=== PATIENT | female | born 1995 | race Caucasian/White ===

== ENCOUNTER 2021-07-22 13:27 | Outpatient (CLI) | payer BC, SELFPAY ==
[2021-07-22 13:55] LABS: Add Urine Microscopic? YES; Appearance Urine Clear (Clear); Bilirubin Urine Negative (Negative); Blood Urine Negative (Negative); Color Urine Light Yellow (Yellow); Glucose Urine UA Trace (Negative); Ketones Urine Negative (Negative); Leukocyte Esterase Ur Negative (Negative); Nitrate Urine Negative (Negative); Protein Urine Negative (Negative); Specific Grav Ur <= 1.005 (1.010-1.020); Urobilinogen Urine 0.2 mg/dL (0.2-1.0)
[2021-07-22 14:06] LABS: Bacteria Urine None seen /hpf; RBC Urine None seen /hpf (0-2); Squamous Epithelial Cell Urine Rare /hpf (Few); WBC Urine None seen /hpf (0-3)
[2021-07-22 14:07] LABS: Creatinine Urine 41.68 mg/dL (40-278); Hemoglobin A1C 9.9 % (<5.7); MALB Creatinine Ratio 31.1 mg/g (0-30); Microalbumin Urine Random < 13.0 mg/L
[2021-07-22 15:04] LABS: Alanine Aminotransferase 24 U/L (14-59); Alkaline Phosphatase 84 U/L (46-116); Anion Gap 7 mmol/L (8-16); Aspartate Amino Transferase 10 U/L (15-37); Bilirubin,Total 0.3 mg/dL (0.00-1.00); Blood Urea Nitrogen 10 mg/dL (7-18); Calcium 9.2 mg/dL (8.5-10.1); Carbon Dioxide 30 mmol/L (21-32); Chloride 102 mmol/L (98-108); Cholesterol 226 mg/dL (0-200); Estimated Glomerular Filt Rate > 60; Free T4 Free Thyroxine 1.07 ng/dL (0.76-1.46); Glucose 201 mg/dL (70-99); HDL Direct 68 mg/dL (40-60); LDL Cholesterol Calculated 151 mg/dL (<130); Osmolality Calculated 293 mOsm/kg (285-295); Potassium 4.6 mmol/L (3.5-5.1); Sodium 139 mmol/L (136-145); Thyroid Stimulating Hormone 0.67 uIU/mL (0.36-3.74); Total Protein 7.6 g/dL (6.4-8.2); Triglycerides 37 mg/dL (0-150)
== END 2021-07-22 13:28 | disposition home or self-care (01) ==
PROVIDERS: PCP Internal Medicine; Visit Provider Internal Medicine Endocrinology, Diabetes & Metabolism
DX: E10.65 Type 1 diabetes mellitus with hyperglycemia (principal)
CPT/HCPCS: 36415; 80053; 80061; 81001; 82043; 83036; 84439; 84443

== ENCOUNTER 2021-12-31 09:51 | Outpatient (CLI) | payer OTHER, SELFPAY ==
[2021-12-31 11:10] LABS: Creatinine Urine 181.64 mg/dL (40-278); MALB Creatinine Ratio 7.1 mg/g (0-30); Microalbumin Urine Random < 13.0 mg/L
[2021-12-31 11:11] LABS: Alanine Aminotransferase 20 U/L (14-59); Albumin Level 3.8 g/dL (3.4-5.0); Alkaline Phosphatase 59 U/L (46-116); Anion Gap 11 mmol/L (8-16); Aspartate Amino Transferase < 10 U/L (15-37); Bilirubin,Total 0.3 mg/dL (0.00-1.00); Blood Urea Nitrogen 8 mg/dL (7-18); Calcium 8.9 mg/dL (8.5-10.1); Carbon Dioxide 26 mmol/L (21-32); Chloride 103 mmol/L (98-108); Cholesterol 202 mg/dL (0-200); Estimated Glomerular Filt Rate > 60; Free T4 Free Thyroxine 1.08 ng/dL (0.76-1.46); Glucose 150 mg/dL (70-99); HDL Direct 65 mg/dL (40-60); LDL Cholesterol Calculated 129 mg/dL (<130); Osmolality Calculated 291 mOsm/kg (285-295); Potassium 4.2 mmol/L (3.5-5.1); Sodium 140 mmol/L (136-145); Thyroid Stimulating Hormone 0.53 uIU/mL (0.36-3.74); Total Protein 7.4 g/dL (6.4-8.2); Triglycerides 39 mg/dL (0-150)
[2021-12-31 12:18] LABS: Hemoglobin A1C 8.3 % (<5.7)
== END 2021-12-31 09:52 | disposition home or self-care (01) ==
LOC: CHSLAB 09:55
PROVIDERS: PCP Internal Medicine; Visit Provider Internal Medicine Endocrinology, Diabetes & Metabolism
DX: E10.65 Type 1 diabetes mellitus with hyperglycemia (principal)
CPT/HCPCS: 36415; 80053; 80061; 82043; 83036; 84439; 84443

== ENCOUNTER 2024-11-27 15:20 | Outpatient (CLI) | payer BC, SELFPAY ==
--- NOTE | ~2024-11-27 | US_ITS ---
EXAMINATION: US OB <= 14 weeks fetus DATE: 11/27/2024 18:15 RAILWAY STATION MANAGER INDICATION: Dating. COMPARISON: 08/01/2024 TECHNIQUE: Real-time transabdominal obstetric ultrasound. FINDINGS: 1 para 0 Estimated date of delivery by last menstrual period is 07/02/2025 The uterus measures 9.8 x 6.5 x 7.0 cm. A gestational sac is identified within the uterus. A pole is identified, with a crown-rump length that measures 2.3 cm, corresponding to an approx imate gestational age of 9 weeks and 0 days. cardiac activity is identified at a rate of 173 bpm. Despite prolonged interrogation, neither ovary was visualized. Estimated date of delivery by ultrasound is 07/02/2025 IMPRESSION: Single intrauterine gestation with an approximate gestational age of 9 weeks and 0 days, with c ardiac activity identified. Reviewed, dictated and finalized at location A. WAY STATION MANAGER IMPRESSION: Single intrauterine gestation with an approximate gestational age of 9 weeks an d 0 days, with cardiac activity identified.
== END 2024-11-27 15:21 | disposition home or self-care (01) ==
LOC: MICIMG 15:20
PROVIDERS: PCP Nurse Practitioner Obstetrics & Gynecology; Visit Provider Nurse Practitioner Obstetrics & Gynecology
DX: N91.2 Amenorrhea, unspecified (principal)
CPT/HCPCS: 76801

== ENCOUNTER 2024-12-25 15:26 | Outpatient (CLI) | payer BC, SELFPAY ==
[2024-12-25 16:09] LABS: Add Urine Microscopic? NO; Appearance Urine Clear (Clear); Bilirubin Urine Negative (Negative); Blood Urine Negative (Negative); Color Urine Yellow (Yellow); Glucose Urine UA Negative (Negative); Ketones Urine Negative (Negative); Leukocyte Esterase Ur Negative LEU/UL (Negative); Nitrate Urine Negative (Negative); Protein Urine Negative (Negative); Urobilinogen Urine 0.2 mg/dL (<2.0)
[2024-12-25 16:20] LABS: Hemoglobin 13.5 g/dL (12.0-15.0); Mean Corpuscular HGB Conc 35.5 g/dl (32-36); Mean Corpuscular Hemoglobin 32.5 pg (26-34); Mean Corpuscular Volume 91.6 fl (80-100); Mean Platelet Volume 10.2 fl (7.4-10.4); Platelet Count Result 303 k/mm3 (150-375); Red Blood Count 4.15 M/mm3 (4.2-5.4); Red Cell Distribution Width 13.9 % (11.5-14.5); White Blood Count 13.3 K/mm3 (4.5-10.0)
[2024-12-25 16:45] LABS: Thyroid Stimulating Hormone 0.689 uIU/mL (0.465-4.680)
[2024-12-25 16:53] LABS: Syphilis IgG/IgM Antibody Negative (Negative)
[2024-12-25 16:55] LABS: HIV 1/2 Ab P24 Ag Result Negative (Negative)
[2024-12-25 16:58] LABS: Hepatitis B Surface Antigen Negative (Negative); Rubella IgG Antibody 6.6 IU/ML
[2024-12-25 17:15] LABS: Hepatitis C Virus Antibody Negative (Negative)
--- OUTSIDE RECORDS SUMMARY | 2024-12-25 18:02 | XMS_ITS | Encounter Summary ---
Author Organization [facility] Address [address] [place] [address] Phone Care Team Providers Care Camp Housekeeper Name Role Phone Lonnie Pond MD Primary Care Provider [phone] Naveen Bal MD Unavailable [phone] Encounter Details Date Type Department Care Team (Late st Contact Info) Description 12/24/2024 Telephone [facility] Endocrinology Metabolism and Lipid 1 [facility] [address] [place] [address] Brayan Padilla RN Social History Tobacco Use Types Packs/Day Years Used Date Smoking Tobacco: Never Alcohol Use Standard Drinks/Week Comments Yes 0 (1 standard drink = 0.6 oz pur e alcohol) Estimated Date of Delivery Comme nts Yes 07/02/2025 Sex and Gender Information Value Date Recorded Sex Assigned at Not on file Legal Sex Female 9:01 PM WOOL DYER Gender Identity Not on file Sexual Orientation Not on file documented as of this encounter Miscellaneous Notes * Telephone Encounter - Brayan Padilla RN - 12/24/2024 11:41 AM WOOL DYER Images from the original note were not included. Outgoing telephone call to discuss below with patient: Saloni Tan MD Armbruster, Dylan Lee, RN Please call patient that her thyroid test is at goal for . She needs to sign up to my chart. I would like her to follow with me, if she is ok, will need appointments every 2 weeks for the next 6 months. For the next one, she can be added at noon. The others will need to be on available spots or keep her name for cancellations. Thanks. No contact. This RN to [facility] with request for return phone call when available. DYER documented in this encounter Plan of Treatment Not on file documented as of this encounter Visit Diagnoses Not on filedocumented in this encounter Care Teams Camp Housekeeper Relationship Specialty Start Date End Date Lonnie Pond MD PCP - General 10/14/14 Naveen Bal MD Consulting Physician Endocrinology Diabetes & Metabolism 05/31/20 documented as of this encounter
--- OUTSIDE RECORDS SUMMARY | 2024-12-25 18:02 | XMS_ITS | Encounter Summary ---
Author Organization [facility] Address [address] [place] [address] Care Team Providers Care Suspension Cord Tier Name Role Phone Unavailable Primary Care Provider Unavailabl e Reason for Visit * Reason Comments Diabetes Encounter Details Date Type Department Care Team (Late st Contact Info) Description 12/17/2024 Chart Note [facility] [place] [facility] [address] [facility] [address] [address] [facility] [address] [place] [phone] Elpidio Price MD [address] [facility] [address] [place] [phone] Diabetes Social History Tobacco Use Types Packs/Day Years Used Date Smoking Tobacco: Never Assessed Estimated Date of Delivery Comme nts Yes 07/02/2025 Sex and Gender Information Value Date Recorded Sex Assigned at Not on file Legal Sex Female 2:11 PM DASHBOARD DEVELOPER Gender Identity Not on file Sexual Orientation Not on file documented as of this encounter Progress Notes * Samara Dawson RN - 12/17/2024 3:44 PM CST Images from the original note were not included. [facility] Maternal Medicine Diabetes Log Review Gestational age: 11w6d Type of DM: DM1 Current regimen: Humalog via Tandem insulin pump + Dexcom CGM Comments: Pump and CGM data reviewed. Average sensor glucose for the past 7 days is 132 mg/dL. She is spending 66% time in range of 70-140 mg/dL (goal is at least 70% or higher). Average TDD is 63.55(44% basal, 56% bolus). Pump settings verified in Tandem Source. Patient is using control IQ 98% ofthe time with sleep mode overnight [id number]. Trends of elevations noted after meals. Next appointment with MFM: 01/[address] Kline for initial consult Recommendations: -Increase ICR at meals -Adjust ISF based on TDD of 65U using rule of 1800 -In control IQ settings, adjust TDD from 35U to 63U -See pump changes below in bold -Send Elias Borges Urzeda message to MFM weekly and prn for pump/CGM review Control IQ- ON Sleep Mode [id number] INSULIN PUMP BASAL RATES TIME 12/11 1.40 1.40 CARB RATIO TIME 12/11 8 6 SENSITIVITY TIME 12/11 40 27 TARGET TIME TARGET RANGE 110-110 Samara Dawson, EDNA Certified Diabetes Care & Edu Specialist [facility] [place] [facility] Initial Visit: 01/02/25 Last Log Billed (either BP or BG) (CGM to bill monthly; others every 7 days): none (Cannot bill until 7 days after an initial consult with MD or JENNIFER) OK to bill: No Physician Attestation: Log reviewed. Agree with above recommendations. No additional changes at this time. Elpidio Price MD Maternal Medicine I spent 5 minutes reviewing this log and therapy plan. BOARD DEVELOPER documented in this encounter Plan of Treatment Upcoming Encounters Date Type Department Care Team (Late st Contact Info) Description 01/02/2025 2:00 PM DASHBOARD DEVELOPER Video Visit [facility] [place] [facility] [address] [facility] [address] [address] [facility] [facility] [address] [place] [address] documented as of this encounter Visit Diagnoses Not on filedocumented in this encounter
--- OUTSIDE RECORDS SUMMARY | 2024-12-25 18:02 | XMS_ITS | Clinical Summary ---
Author Organization [facility] Address [address] [place] [address] Care Team Providers Care Director Hardware Name Role Phone Lonnie Pond MD Primary Care Provider [phone] Naveen Bal MD Unavailable [phone] Allergies No known active allergies Medications glucagon (Gvoke HypoPen 1-Pack) 1 mg/0.2 mL auto-injector Inject 1 mg as needed by subcutaneous route as needed for 1 day. Active subcutaneous insulin pump misc Tandem Active blood-glucose sensor (Dexcom G7 Sensor) device Apply to skin every 10 days 9 each 3 024 Active insulin lispro (HumaLOG) 100 unit/mL vial for injectionIndicat ions:Type 1 diabetes mellitus with hyperglycemia (HCC) Use to administer insulin SQ via insulin pump. MDD of 70 units. 70 mL 1 025 Active insulin glargine 100 unit/mL vial for injection USE ONLY IF INSULIN PUMP FAILS. Inject 10 units SQ qHS as directed if pump fails 025 Active insulin syringe-needle U-100 0.5 mL 31 gauge x 5/16 syringe Use to inject insulin as directed 025 Active insulin lispro (HumaLOG U-100 Insulin) 100 unit/mL injection USE UP TO 60 UNITS DAILY IN OMNI POD 019 2024 Discontinued(R eorder) insulin pump cartridge (Omnipod Insulin Refill) cartridge 019 2024 Discontinued(A lternate therapy) Dexcom G6 Transmitter device CHANGE EVERY 90 DAYS DIRECTED 024 2024 Discontinued(A lternate therapy) insulin aspart (NovoLOG) 100 unit/mL vial for injection Inject 200 units every 72 hours by subcutaneous route as directed for 90 days. 023 2024 Discontinued insulin lispro (HumaLOG) 100 unit/mL vial for injectionIndicat ions:Type 1 diabetes mellitus with hyperglycemia (HCC) Use to administer insulin SQ via insulin pump. MDD of 70 units. 70 mL 1 025 2024 Discontinued(R eorder) Active Problems Patient Care Coordination No te Formatting of this note migh t be different from the original. Patient's Upholsterer Inside is Dr. 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 Stressed importance of tight blood glucose control/ diet/exercise and A1C <7% to reduce the risk of diabetic complications. Report sent to PCP/endo. Estimated Date of Delivery Comme nts Yes 07/02/2025 Encounters Date Type Department Care Team Description 12/25/2024 Telephone [facility] Endocrinology Metabolism and Lipid [address] [facility] 5[address] [place] [address] [place] [address] Brayan Padilla RN 12/24/2024 Telephone [facility] Endocrinology Metabolism and Lipid 1 [facility] [address] [place] [address] Brayan Padilla RN 12/21/2024 Results Follow-Up [facility] Endocrinology Metabolism and Lipid 1 [facility] [address] [place] [address] Saloni Tan MD 12/14/2024 1:00 PM RHEUMATOLOGIST Lab [facility] Infectious Diseases [address] [facility] [address] [place] [phone] 12/14/2024 12:59 PM RHEUMATOLOGIST - 12/14/2024 11:59 PM RHEUMATOLOGIST Hospital Encounter [address] [address] Type 1 diabetes mellitus with hyperglycemia (HCC) Discharge Disposition: Discharge to home or self care 12/14/2024 11:40 AM RHEUMATOLOGIST Office Visit [facility] Endocrinology Metabolism and Lipid [address] [place] [address] [address] [place] [phone] Saloni Tan MD Type 1 diabetes mellitus with hyperglycemia (HCC) (Primary Dx); Type 1 diabetes mellitus complicating , antepartum, first trimester from Last 3 Months Medical History Medical History Date Comments Type 1 diabetes mellitus (HCC) D iabetes type 1; Comments: CL 07/22/2014 - Family History Medical History Relation Name Comments Diabetes Father's Sister Diabetes jennifer litus; Diabetes Maternal Grandmother Diabete s mellitus; Cause of : Diabetes mellitus Diabetes Paternal Grandmother Diabete s mellitus; Relation Name Status Comments Father's Sister Maternal Grandmother Paternal Grandmother Social History Tobacco Use Types Packs/Day Years Used Date Smoking Tobacco: Never Tobacco Cessation:Counseling Given: Not Answered Alcohol Use Standard Drinks/Week Comments Yes 0 (1 standard drink = 0.6 oz pur e alcohol) Estimated Date of Delivery Comme nts Yes 07/02/2025 Sex and Gender Information Value Date Recorded Sex Assigned at Not on file Legal Sex Female 9:01 PM RHEUMATOLOGIST Gender Identity Not on file Sexual Orientation Not on file Obstetrics History Para Term AB IAB SAB Ectopic Multiple Livin g Live Births 1 Date Outcome GA Total Labor Labor/2nd/3rd Weight Sex Type Anes PTL Erin A1 A5 Name Clin Current Last Filed Vital Signs Vital Sign Reading Time Taken Comments Blood Pressure 116/72 12/14/2024 11:32 AM RHEUMATOLOGIST Pulse 83 12/14/2024 11:32 AM RHEUMATOLOGIST Temperature 36.7 C (98.1 F) 12/14/2024 11:32 AM RHEUMATOLOGIST Respiratory Rate - - Oxygen Saturation - - Inhaled Oxygen Concentration - - Weight 69.7 kg (153 lb 9.6 oz) 12/14/2024 11:32 AM RHEUMATOLOGIST Height 170.2 cm (5' 7 ) 12/14/2024 11:32 AM RHEUMATOLOGIST Body Mass Index 24.06 12/14/2024 11:32 AM RHEUMATOLOGIST Plan of Treatment Health Maintenance Due Date Last Done Comments Cervical Cancer Screening 1995 Depression Screening 1995 Foot Exam 1995 Hepatitis C Screening 1995 Regular Well Visit/Exam 18-64 2013 Pneumococcal vaccine <65 (1 of 2 - PCV) 2014 DTaP/Tdap/Td Vaccine (7 - Td or Tdap) 05/13/2020 05/13/2010, 03/03/2001, 03/03/2001, Additional history exists Dilated Eye Exam 06/04/2021 06/04/2020 Influenza Vaccine (#1) 2024 07/29/2015, 2012 Albumin Creatinine Ratio, Urine 06/04/2025 Lipid Panel 06/04/2025 06/04/2024, 04/03/2020 eGFR 06/04/2025 06/04/2024 Hemoglobin A1C 06/13/2025 12/14/2024, 1103/2024, 06/04/2024, Additional history exists TSH Level 12/14/2025 12/14/2024, 080 02/2024, 04/03/2020 Hepatitis B Screening Completed 03/02/1996 , 1995, 1995 Varicella Vaccines Completed 03/03/2001, 02/01/1997 HPV Vaccines Completed 12/22/2007, 100 12/2006, 06/30/2007 Procedures Procedure Name Priority Date/Time Associated Diagnosis Comments THYROID FUNCTION CASCADE Routine 12/14/2024 12:59 PM RHEUMATOLOGIST Type 1 diabetes mellitus with hyperglycemia (HCC) POCT HEMOGLOBIN A1C Routine 12/14/2024 1 1:43 AM RHEUMATOLOGIST Type 1 diabetes mellitus with hyperglycemia (HCC) EGFR Routine 06/04/2024 3:33 PM CDT Type 1 diabetes mellitus with hyperglycemia (HCC) LIPID PANEL Routine 06/04/2024 3:33 PM CDT Type 1 diabetes mellitus with hyperglycemia (HCC) ALBUMIN CREATININE RATIO, URINE Routine 06/04/2024 3:33 PM CDT Type 1 diabetes mellitus with hyperglycemia (HCC) from Last 3 Months or Most Recently Relevant to Health Maintenance Results * Thyroid Function [facility] (12/14/2024 12:59 PM RHEUMATOLOGIST) TSH 0.47 0.30 - 4.20 mcIUnit/mL Blood 12/14/2024 12:5 9 PM RHEUMATOLOGIST 12/14/2024 8:39 PM RHEUMATOLOGIST Saloni Fragoso MD LAB BLOOD ORDERABLES Final Result [facility] [address] Department [place] [address] * POCT hemoglobin A1c (12/14/2024 11:43 AM RHEUMATOLOGIST) Hemoglobin A1C, POC 6.5 4.0 - 5.6 % Blood 12/14/2024 11:4 3 AM RHEUMATOLOGIST Saloni Fragoso MD POINT OF CARE TEST ORDERAB LES Final Result * eGFR (06/04/2024 3:33 PM CDT) eGFR >90 >=60 mL/min/1. 73 m2 Comment: Interpretive Data Reference Interval Normal >/= 90 mL/min/1.73m2 Mildly decreased* 60 - 89 mL/min/1.73m2 Mildly to moderately decreased 45 - 59 mL/min/1.73m2 Moderately to severely decreased 30 - 44 mL/min/1.73m2 Severely decreased 15 - 29 mL/min/1.73m2 Kidney Failure < 15 mL/min/1.73m2 *Relative to young adult level Estimated glomerular filtration rate is determined by the 2020 CKD-EPI equation recommended by the National Kidney Foundation (A Unifying Approach to GFR Estimation: Recommendations of the NKF-ASK Task Force on Reassessing the Inclusion of Race in Diagnosing Kidney Disease, JASN 2020). The CKD-EPI equation should not be used for patients with unstable renal function and has not been validated in children and those over 70. Current interpretive data was last reviewed 2021. Blood 06/04/2024 3:33 PM CDT 06/04/2024 6:44 PM CDT Saloni Fragoso MD LAB BLOOD ORDERABLES Final Result Performing Organization Address [facility] Co de Phone Number [facility] [address] [place] [address] * Albumin Creatinine Ratio, Urine (06/04/2024 3:33 PM CDT) Albumin Ur <12.0 mg/L Comment: Interpretive Data No reference range established. Current interpretive data was last revised 2019. Creatinine Ur 52.4 mg/dL [facility] Comment: Interpretive Data No reference range established. Current interpretive data was last revised 2019. Albumin Creatinine Ratio, Ur <23 1 - 29 mg/g [facility] Urine 06/04/2024 3:33 PM CDT 06/04/2024 6:35 PM CDT Saloni Fragoso MD LAB URINE ORDERABLES Final Result Performing Organization Address [facility] de Phone Number [facility] [address] [place] [address] * (ABNORMAL) Lipid panel (06/04/2024 3:33 PM CDT) Cholesterol 220(H) 30 - 199 mg/dL Comment: Interpretive Data Ages < or = 19 years Acceptable: <170 mg/dL Borderline high: 170-199 mg/dL High: >or= 200 mg/dL Ages > or = 20 years Desirable: <200 mg/dL Borderline high: 200-239 mg/dL High: >or= 240 mg/dL Literature References: 1. Expert Panel on Integrated Guidelines for Cardiovascular Health and Risk Reduction in Children and Adolescents. Pediatrics 2011;128:S213 2. NCEP Expert Panel. Circulation 2004;110:227 Current Interpretive Data was last revised on 2018. Triglycerides 82 <=149 mg/dL [facility] Comment: Interpretive Data Ages < or = 9 years Acceptable: <75 mg/dL Borderline high: 75-99 mg/dL High: >or= 100 mg/dL Ages 10 to 20 years Acceptable: <90 mg/dL Borderline high: 90-129 mg/dL High: >or= 130 mg/dL Ages > or = 20 years Desirable: <150 mg/dL Borderline high: 150-199 mg/dL High: 200-499 mg/dL Very high: >or= 499 mg/dL Literature References: 1. Expert Panel on Integrated Guidelines for Cardiovascular Health and Risk Reduction in Children and Adolescents. Pediatrics 2011;128:S213 2. NCEP Expert Panel. Circulation 2004;110:227 Current Interpretive Data was last revised on 2018. HDL 65 >=40 mg/dL [facility] Comment: Interpretive Data Ages < or = 19 years Acceptable: >45 mg/dL Borderline low: 40-45 mg/dL Low: <40 mg/dL Ages > or = 20 years Desirable: >or= 60 mg/dL Low: <40 mg/dL Literature References: 1. Expert Panel on Integrated Guidelines for Cardiovascular Health and Risk Reduction in Children and Adolescents. Pediatrics 2011;128:S213 2. NCEP Expert Panel. Circulation 2004;110:227 Current Interpretive Data was last revised on 2018. LDL, calculated 139(H) <=129 mg/dL [facility] Comment: Interpretive Data Ages < or = 19 years Acceptable: <110 mg/dL Borderline high: 110-129 mg/dL High: >or= 130 mg/dL Ages > or = 20 years Optimal: <100 mg/dL Near optimal: 100-129 mg/dL Borderline high: 130-159 mg/dL High: >160 mg/dL Literature References: 1. Expert Panel on Integrated Guidelines for Cardiovascular Health and Risk Reduction in Children and Adolescents. Pediatrics 2011;128:S213 2. NCEP Expert Panel. Circulation 2004;110:227 Current Interpretive Data was last revised on 2018. Non-HDL Cholesterol 155 mg/dL [facility] Comment: Interpretive Data Ages < or = 19 years Acceptable: <120 mg/dL Borderline high: 120-144 mg/dL High: >145 mg/dL Ages > or = 20 years When triglycerides are >200 mg/dL, Non-HDL cholesterol is a secondary target of therapy with treatment goals that are 30 mg/dL greater than the LDL cholesterol target. Literature References: 1. Expert Panel on Integrated Guidelines for Cardiovascular Health and Risk Reduction in Children and Adolescents. Pediatrics 2011;128:S213 2. NCEP Expert Panel. Circulation 2004;110:227 Current Interpretive Data was last revised on 2018. Chol/HDL ratio 3 [facility] Blood 06/04/2024 3:33 PM CDT 06/04/2024 6:36 PM CDT us Saloni Fragoso MD LAB BLOOD ORDERABLES Final Result [facility] [address] Department [place] [address] from Last 3 Months or Most Recently Relevant to Health Maintenance Insurance [employer] ACCESS CHOICE [employer] ACCESS CHOICE Care Teams Director Hardware Relationship Specialty Start Date End Date Lonnie Pond MD PCP - General 10/14/14 Naveen Bal MD Consulting Physician Endocrinology Diabetes & Metabolism 05/31/20
--- OUTSIDE RECORDS SUMMARY | 2024-12-25 18:02 | XMS_ITS | Clinical Summary ---
Author Organization [facility] Address [address] [place] [address] Care Team Providers Care Icu Clerk Name Role Phone Unavailable Primary Care Provider Unavailabl e Social History Tobacco Use Types Packs/Day Years Used Date Smoking Tobacco: Never Assessed Comments Unknown Sex and Gender Information Value Date Recorded Sex Assigned at Not on file Legal Sex Female 8:06 PM CDT Gender Identity Not on file Sexual Orientation Not on file Plan of Treatment Health Maintenance Due Date Last Done Comments Hepatitis C Virus (HCV) Screening 1995 Pap Smear 2016 Influenza Immunization (#1) 2024 07/29/2015 SARS-COV-2 Immunization ( season) 2024 10/01/2021, 05/28/2021 Respiratory Syncytial Virus (RSV) Immunization (Adult) (1 - 1-dose 75+ series) 2070 Hepatitis B Immunization Completed 996, 1995, 1995 Human Papillomavirus (HPV) Immunization Discontinued 12/22/2007, 08/02/2007, 06/30/2007 DTaP/Tdap/Td Immunization Discontinued 2009, 03/03/2001, 02/01/1997, Additional history exists TdaP Immunization Completed 05/13/2010 Meningococcal Immunization (ACWY) Completed 05/28/2014, 06/30/2007 Pneumococcal Immunization Combined Aged Out No longer eligible based on patient's age to complete this topic Rotavirus Immunization Aged Out No lo nger eligible based on patient's age to complete this topic
--- OUTSIDE RECORDS SUMMARY | 2024-12-25 18:02 | XMS_ITS | Encounter Summary ---
Author Organization [facility] Address [address] [place] [address] Phone Care Team Providers Care Director Marketing Communications Name Role Phone Lonnie Pond MD Primary Care Provider [phone] Naveen Bal MD Unavailable [phone] Encounter Details Date Type Department Care Team (Late st Contact Info) Description 12/21/2024 Results Follow-Up [facility] Endocrinology Metabolism and Lipid [address] [facility] [address] [place] [address] Saloni Tan MD [address] [place], [place] [id number] Social History Tobacco Use Types Packs/Day Years Used Date Smoking Tobacco: Never Alcohol Use Standard Drinks/Week Comments Yes 0 (1 standard drink = 0.6 oz pur e alcohol) Estimated Date of Delivery Comme nts Yes 07/02/2025 Sex and Gender Information Value Date Recorded Sex Assigned at Not on file Legal Sex Female 9:01 PM COMPUTER SUPPORT ANALYST Gender Identity Not on file Sexual Orientation Not on file documented as of this encounter Plan of Treatment Not on file documented as of this encounter Visit Diagnoses Not on filedocumented in this encounter Care Teams Director Marketing Communications Relationship Specialty Start Date End Date Lonnie Pond MD PCP - General 10/14/14 Naveen Bal MD Consulting Physician Endocrinology Diabetes & Metabolism 05/31/20 documented as of this encounter
--- OUTSIDE RECORDS SUMMARY | 2024-12-25 18:02 | XMS_ITS | Encounter Summary ---
Author Organization [facility] Address [address] [place] [address] Phone Care Team Providers Care Infrastructure Project Manager Name Role Phone Lonnie Pond MD Primary Care Provider [phone] Naveen Bal MD Unavailable [phone] Encounter Details Date Type Department Care Team (Late st Contact Info) Description 12/25/2024 Telephone [facility] Endocrinology Metabolism and Lipid [address] [facility] 5th [place] [address] [place] [address] Brayan Padilla RN Social History Tobacco Use Types Packs/Day Years Used Date Smoking Tobacco: Never Alcohol Use Standard Drinks/Week Comments Yes 0 (1 standard drink = 0.6 oz pur e alcohol) Estimated Date of Delivery Comme nts Yes 07/02/2025 Sex and Gender Information Value Date Recorded Sex Assigned at Not on file Legal Sex Female 9:01 PM STRIPPING AND BOOKING MACHINE OPERATOR Gender Identity Not on file Sexual Orientation Not on file documented as of this encounter Miscellaneous Notes * Telephone Encounter - Brayan Padilla RN - 12/25/2024 10:26 AM STRIPPING AND BOOKING MACHINE OPERATOR This RN spoke with patient and scheduled for telehealth f/u within next 2 weeks. Inbasket message to scheduling to request pt be scheduled q 2 weeks x [address] JACOB's request. PPING AND BOOKING MACHINE OPERATOR * Telephone Encounter - Brayan Padilla RN - 12/25/2024 10:03 AM STRIPPING AND BOOKING MACHINE OPERATOR Outgoing telephone call x 2 regarding below: Landon Charles, I left you a voicemail earlier as well but I see now where you're signed up for MyChart. Please seeDr. Hema Fragoso's lab comments below: Please call patient that her thyroid test [...] or keep her name for cancellations. Thanks. I can schedule you for an appointment with Dr. JACOB next 01/04/2025, at 10:00 am, if this day/time works with your schedule? Best wishes, EDNA Schmidt No contact. Unable to LVM d/t mailbox being full. PPING AND BOOKING MACHINE OPERATOR documented in this encounter Plan of Treatment Not on file documented as of this encounter Visit Diagnoses Not on filedocumented in this encounter Care Teams Infrastructure Project Manager Relationship Specialty Start Date End Date Lonnie Pond MD PCP - General 10/14/14 Naveen Bal MD Consulting Physician Endocrinology Diabetes & Metabolism 05/31/20 documented as of this encounter
--- OUTSIDE RECORDS SUMMARY | 2024-12-25 18:02 | XMS_ITS | Clinical Summary ---
Author Organization [facility] Address [address] [place] [address] Phone Care Team Providers Care Coat Finisher Name Role Phone Unavailable Primary Care Provider Unavailabl e Medications Blood-Glucose Sensor (Dexcom G7 Sensor) Device Inject 1 Each by subcutaneous injection every 10 days. 4 Active glucagon (Gvoke HypoPen 1-Pack) 1 mg/0.2 mL Auto-Injector Inject 1 mg by subcutaneous injection 1 time daily as needed for Other (See Comment) (severe hypoglycemia). Active insulin lispro (HumaLOG,ADMEL OG) 100 unit/mL vialIndication s:Pre-existing type 1 diabetes mellitus during , antepartum Inject 100 Units by subcutaneous injection continuously. via insulin pump therapy 30 mL 6 5 Active Insulin Syringe-Needle U-100 0.5 mL 31 gauge x 5/16 SyringeIndicat ions:Pre-exist ing type 1 diabetes mellitus during , antepartum Use to inject insulin as directed 100 Each 2 5 Active insulin glargine (LANTUS) 100 unit/mL vialIndication s:Pre-existing type 1 diabetes mellitus during , antepartum USE ONLY IF INSULIN PUMP FAILS. Inject 10 units SQ qHS as directed if pump fails 10 mL 5 Active insulin lispro (HumaLOG,ADMEL OG) 100 unit/mL vial 100 Units by See Admin Instructions route continuously. Via insulin pump therapy 5 025 Discontin ued(Reord er) Active Problems Problem Noted Date Diagnosed Date Type 1 diabetes mellitus 06/11/2009 Estimated Date of Delivery Comme nts Yes 07/02/2025 Encounters Date Type Department Care Team Description 12/19/2024 External Device Data [facility] ABSTRACTION Provider, Abstract 12/18/2024 External Device Data [facility] Provider, Abstract 12/18/2024 External Device Data [facility] [place] Provider, Abstract 12/17/2024 Chart Note [facility] Maternal Medicine [address] [place] [address] Elpidio Price MD Diabetes 12/11/2024 1:00 PM SUPERVISOR GAME FARM Video Visit [facility] Maternal and Medicine - Medical [place] [address] [place] [address] Type 1 diabetes mellitus without complication (CMS/HCC) (Primary Dx) 12/11/2024 Orders Only [facility] Maternal and Medicine - Medical [place] [address] [place] [address] Vale Stephenson MD Pre-existing type 1 diabetes mellitus during , antepartum (Primary Dx) 12/11/2024 Chart Note [facility] Maternal and Medicine - Medical [place] [address] [place] [address] Diabetes 11/27/2024 Abstract [facility] Maternal and Medicine - Medical [place] [address] [place] [address] Betsy Gutierrez from Last 3 Months Social History Tobacco Use Types Packs/Day Years Used Date Smoking Tobacco: Never Assessed Estimated Date of Delivery Comme nts Yes 07/02/2025 Sex and Gender Information Value Date Recorded Sex Assigned at Not on file Legal Sex Female 2:11 PM SUPERVISOR GAME FARM Gender Identity Not on file Sexual Orientation Not on file Last Filed Vital Signs Vital Sign Reading Time Taken Comments Blood Pressure - - Pulse - - Temperature - - Respiratory Rate - - Oxygen Saturation - - Inhaled Oxygen Concentration - - Weight 68 kg (150 lb) 12/11/2024 2:19 PM SUPERVISOR GAME FARM Height 170.2 cm (5' 7 ) 12/11/2024 2:19 PM SUPERVISOR GAME FARM Body Mass Index 23.49 12/11/2024 2:19 PM SUPERVISOR GAME FARM Plan of Treatment Upcoming Encounters Date Type Department Care Team (Late st Contact Info) Description 01/02/2025 2:00 PM SUPERVISOR GAME FARM Video Visit [facility] Maternal Medicine [address] [place] [address] Health Maintenance Due Date Last Done Comments DIABETES ANNUAL FOOT EXAM 2013 DIABETES ANNUAL RETINAL EXAM 2013 DIABETES MICROALBUMIN ANNUAL SCREEN 2013 LDL CHOLESTEROL ANNUAL 2013 CERVICAL CANCER SCREENING 2016 DTAP/TDAP/TD VACCINES (6 - T d or Tdap) 05/13/2020 05/13/2010, 03/03/2001, 03/03/2001, Additional history exists INFLUENZA VACCINE (#1) 2024 DIABETES HBA1C Q 6 MONTHS 03/05/20252023, 06/04/2024, 04/03/2020 HEPATITIS B VACCINES Completed 03/02/1996, 1995, 1995 HPV VACCINES Completed 12/22/2007, 1012/2006, 06/30/2007 RSV VACCINE (60+ or ) (No Doses Required) Completed Insurance
--- OUTSIDE RECORDS SUMMARY | 2024-12-25 18:02 | XMS_ITS | Referral Summary ---
Author Organization [facility] Address [address] [place] [address] Care Team Providers Care Commercial Banker Name Role Phone Lonnie Pond MD Primary Care Provider [phone] Naveen Bal MD Unavailable [phone] Encounters Date Type Department Care Team Description 12/25/[address] [facility] Endocrinology Metabolism and Lipid [address] [facility] 5th [place] [address] [place] [address] Brayan Padilla RN 12/24/[address] [facility] Endocrinology Metabolism and Lipid [address] [facility] [address] [place] [address] Brayan Padilla RN 12/21/2024 Results Follow-Up [facility] Endocrinology Metabolism and Lipid [address] [facility] [address] [place] [address] Saloni Tan MD 12/14/2024 12:59 PM HEATER OPERATOR - 12/14/2024 11:59 PM HEATER OPERATOR Hospital Encounter [facility] [address] [place] [address] Type 1 diabetes mellitus with hyperglycemia (HCC) Discharge Disposition: Discharge to home or self care 12/14/2024 1:00 PM HEATER OPERATOR Lab [facility] Infectious Diseases [address] [facility] [address] [place] [address] 12/14/2024 11:40 AM HEATER OPERATOR Office Visit [facility] Endocrinology Metabolism and Lipid [address] [facility] [address] [place] [address] Saloni Tan MD Type 1 diabetes mellitus with hyperglycemia (HCC) (Primary Dx); Type 1 diabetes mellitus complicating , antepartum, first trimester from Last 3 Months Allergies No known active allergies Medications glucagon (Gvoke HypoPen 1-Pack) 1 mg/0.2 mL auto-injector Inject 1 mg as needed by subcutaneous route as needed for 1 day. Active subcutaneous insulin pump [facility] Tandem Active blood-glucose sensor (Dexcom G7 Sensor) device Apply to skin every 10 days 9 each 3 Active insulin lispro (HumaLOG) 100 unit/mL vial for injectionIndicat ions:Type 1 diabetes mellitus with hyperglycemia (HCC) Use to administer insulin SQ via insulin pump. MDD of 70 units. 70 mL 1 025 Active insulin glargine 100 unit/mL vial for injection USE ONLY IF INSULIN PUMP FAILS. Inject 10 units SQ qHS as directed if pump fails Active insulin syringe-needle U-100 0.5 mL 31 gauge x 5/16 syringe Use to inject insulin as directed Active insulin lispro (HumaLOG U-100 Insulin) 100 unit/mL injection USE UP TO 60 UNITS DAILY IN OMNI POD 019 2024 Discontinued(R eorder) insulin pump cartridge (Omnipod Insulin Refill) cartridge 2024 Discontinued(A lternate therapy) Sekoiacom G6 Transmitter device CHANGE EVERY 90 DAYS [...] t be different from the original. Patient's Six Color Press Operator is Dr. 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 Stressed importance of tight blood glucose control/ diet/exercise and A1C <7% to reduce the risk of diabetic complications. Report sent to PCP/endo. Estimated Date of Delivery Comme nts Yes 07/02/2025 Social History Tobacco Use Types Packs/Day Years Used Date Smoking Tobacco: Never Tobacco Cessation:Counseling Given: Not Answered Alcohol Use Standard Drinks/Week Comments Yes 0 (1 standard drink = 0.6 oz pur e alcohol) Estimated Date of Delivery Comme nts Yes 07/02/2025 Sex and Gender Information Value Date Recorded Sex Assigned at Not on file Legal Sex Female 9:01 PM HEATER OPERATOR Gender Identity Not on file Sexual Orientation Not on file Last Filed Vital Signs Vital Sign Reading Time Taken Comments Blood Pressure 116/72 12/14/2024 11:32 AM HEATER OPERATOR Pulse 83 12/14/2024 11:32 AM HEATER OPERATOR Temperature 36.7 C (98.1 F) 12/14/2024 11:32 AM HEATER OPERATOR Respiratory Rate - - Oxygen Saturation - - Inhaled Oxygen Concentration - - Weight 69.7 kg (153 lb 9.6 oz) 12/14/2024 11:32 AM HEATER OPERATOR Height 170.2 cm (5' 7 ) 12/14/2024 11:32 AM HEATER OPERATOR Body Mass Index 24.06 12/14/2024 11:32 AM HEATER OPERATOR Plan of Treatment Not on file Procedures Procedure Name Priority Date/Time Associated Diagnosis Comments THYROID FUNCTION CASCADE Routine 12/14/2024 12:59 PM HEATER OPERATOR Type 1 diabetes mellitus with hyperglycemia (HCC) POCT HEMOGLOBIN A1C Routine 12/14/2024 1 1:43 AM HEATER OPERATOR Type 1 diabetes mellitus with hyperglycemia (HCC) [...] to Health Maintenance Results * Thyroid Function Dawson (12/14/2024 12:59 PM HEATER OPERATOR) TSH 0.47 0.30 - 4.20 mcIUnit/mL Blood 12/14/2024 12:5 9 PM HEATER OPERATOR 12/14/2024 8:39 PM HEATER OPERATOR Saloni Fragoso MD LAB BLOOD ORDERABLES Final Result Performing Organization Address City/State/[place] Phone Number [facility] [place] [address] Department [place] [address] * POCT hemoglobin A1c (12/14/2024 11:43 AM HEATER OPERATOR) Pathologist [facility] Hemoglobin A1C, POC 6.5 4.0 - 5.6 % Blood 12/14/2024 11:4 3 AM HEATER OPERATOR Saloni Fragoso MD POINT OF CARE TEST [...] BLOOD ORDERABLES Final Result Performing Organization Address [facility]/[place] Phone Number [facility] [place] [address] [address] [facility] [place] [address] * Albumin Creatinine Ratio, Urine (06/04/2024 3:33 PM CDT) Albumin Ur <12.0 mg/L Comment: Interpretive Data No reference range established. Current interpretive data was last revised 2019. Creatinine Ur 52.4 mg/dL [place] Comment: Interpretive Data No reference range established. Current interpretive data was last revised 2019. Albumin Creatinine Ratio, Ur <23 1 - 29 mg/g [place] Urine 06/04/2024 3:33 PM CDT 06/04/2024 6:35 PM CDT Saloni Fragoso MD LAB URINE ORDERABLES Final Result Performing Organization Address City/[facility]/[place] Phone Number [facility] [place] [address] [address] [facility] [place] [address] * (ABNORMAL) Lipid panel (06/04/2024 3:33 PM [...] on 2018. Triglycerides 82 <=149 mg/dL [facility] Comment: Interpretive Data Ages < or = [...] Pediatrics 2011;128:S213 2. NCEP Expert Panel. Circulation 2003;110:227 Current Interpretive Data was last revised on 2018. HDL 65 >=40 mg/dL [place] Comment: Interpretive Data Ages < or = 19 years Acceptable: >45 mg/dL Borderline low: 40-45 mg/dL Low: <40 mg/dL Ages > or = 20 years Desirable: >or= 60 mg/dL Low: <40 mg/dL Literature References: 1. Expert Panel on Integrated Guidelines for Cardiovascular Health and Risk Reduction in Children and Adolescents. Pediatrics 2011;128:S213 2. NCEP Expert Panel. Circulation 2003;110:227 Current Interpretive Data was last revised on 2018. LDL, calculated 139(H) <=129 mg/dL [facility] Comment: Interpretive Data Ages < or = [...] on 2018. Non-HDL Cholesterol 155 mg/dL [facility] Comment: Interpretive Data Ages < or = [...] MD LAB BLOOD ORDERABLES Final Result [place] [address] Department [place] [address] from Last 3 Months or Most Recently Relevant to Health Maintenance [facility] Care Teams Commercial Banker Relationship Specialty Start Date End Date Lonnie Pond MD PCP - General 10/14/14 Naveen Bal MD Consulting Physician Endocrinology Diabetes & Metabolism 05/31/20
--- OUTSIDE RECORDS SUMMARY | 2024-12-25 18:02 | XMS_ITS | Clinical Summary ---
Author Organization [facility] Address [facility] [place] [address] Care Team Providers Care Grazing Aide Name Role Phone Lonnie Pond MD Primary Care Provider [phone] Allergies No known active allergies Medications Glucose Blood (FREESTYLE LITE) test strip FreeStyle Lite Test In Vitro StripTEST [id number] Active Active OMNIPOD 5 PACK MiscIndications:Un controlled type 1 diabetes mellitus with hyperglycemia (CMS/HCC HHS/HCC) CHANGE POD EVERY 72 HOURS 30 each 3 9 Active DEXCOM G6 SUPERVISOR SHIPPING DeviceIndications: Uncontrolled type 1 diabetes mellitus with hyperglycemia (CMS/HCC HHS/HCC) Use as directed 1 Device 0 Active BLISOVI FE 11/19 1-20 MG-MCG tabletIndications: Type 1 diabetes mellitus without complication (CMS/HCC HHS/HCC) TAKE 1 TABLET DAILY 84 tablet 3 0 Active DEXCOM G6 SENSOR MiscIndications:Un controlled type 1 diabetes mellitus with hyperglycemia (CMS/HCC HHS/HCC) Change sensor every 10 days 9 each 1 Active DEXCOM G6 TRANSMITTER MiscIndications:Un controlled type 1 diabetes mellitus with hyperglycemia (CMS/HCC HHS/HCC) Every 3 months 1 each 1 Active HUMALOG 100 UNIT/ML injection (VIAL)Indications: Type 1 diabetes mellitus without complication (CMS/HCC HHS/HCC) USE UP TO 60 UNITS DAILY IN OMNI POD 60 mL 3 1 Active Active Problems Problem Noted Date Diagnosed Date Noncompliance with diabetes treatment 10/01/2019 Type 1 diabetes mellitus wit hout complication ([facility]) 03/30/2017 Resolved Problems Problem Noted Date Diagnosed Date Resolved Date Insulin pump titration 06/07/201807/11 Immunizations Name Administration Dates Next Due Dtap (Generic) 03/03/2001,02/01/1997 Dtp/Hib 03/02/1996,1995,1995 HPV 12/22/2007,08/02/2007,06/30/2007 Hepatitis B Pediatric 03/02/1996,1995,08/31 Hib Vaccine, Hboc 02/01/1997 Influenza (Generic) 11/22/2012 Influenza Adult (Generic) 07/29/2015 MMR (Generic) 03/03/2001,02/01/1997 Meningococcal Vac A,C,Y,W-135 Sc 05/28/2014,06/02 Opv 03/02/1996,1995,1995 Polio Ipv (Generic) 03/03/2001 Tdap (Generic) 05/13/2010 Family History Medical History Relation Comments Lung Cancer Maternal Grandfather Breast Cancer Maternal Grandmother Diabetes Maternal Grandmother Diabetes Paternal Grandmother Relation Status Comments Maternal Grandfather Maternal Grandmother Alive Paternal Grandmother Social History Tobacco Use Types Packs/Day Years Used Date Smoking Tobacco: Never Smokeless Tobacco: Never Alcohol Use Standard Drinks/Week Comments Yes 0 (1 standard drink = 0.6 oz pur e alcohol) social PHQ-2 Answer Date Recorded PHQ-2 Score - If the patient scores above 3, please move on to questions 3-9 0 07/01/2020 Comments Unknown Sex and Gender Information Value Date Recorded Sex Assigned at Not on file Legal Sex Female 7:58 PM CDT Gender Identity Not on file Sexual Orientation Not on file Last Filed Vital Signs Vital Sign Reading Time Taken Comments Blood Pressure 106/60 07/01/2020 10:45 AM CDT Pulse 72 07/01/2020 10:45 AM CDT Temperature 36.2 C (97.2 F) 07/01/2020 10:45 AM CDT Respiratory Rate 20 07/01/2020 10:45 AM CDT Oxygen Saturation 98% 07/01/2020 10:45 AM CDT Inhaled Oxygen Concentration - - Weight 62.9 kg (138 lb 9.6 oz) 07/01/2020 10:45 AM CDT Height 170.2 cm (5' 7 ) 07/01/2020 10:45 AM CDT Body Mass Index 21.71 07/01/2020 10:45 AM CDT Plan of Treatment Health Maintenance Due Date Last Done Comments Cervical Cancer Screening Pap Smear (Age 21 to 29) Every 3 Years 1995 Cervical Cancer Screening 1995 Kidney Health Evaluation 1995 Annual Physical 1998 Pneumococcal Vaccine: Pediatrics (0 to 5 Years) and At-Risk Patients (6 to 64 Years) (1 of 2 - PCV) 2001 Diabetes: Retinopathy Eye Exam 2013 Hepatitis C 2013 DTaP, Tdap and Td Vaccines (4 - Td or Tdap) 05/13/2020 05/13/2010, 03/03/2001, 02/01/1997, Additional history exists Hemoglobin A1C 10/03/2020 04/03/2020, 12/2018, 06/18/2019, Additional history exists Lipid Panel 04/03/2021 04/03/2020, 05/31, 10/19/2017 COVID-19 Vaccine ( season) 2024 Influenza Adult (#1) 2024 07/29/2015, 11/22/19 13 Hepatitis B Vaccines Completed 03/02/1996, 1995, 1995 HPV Vaccines Completed 12/22/2007, 12/2006, 06/30/2007 Meningococcal Vaccine Aged Out 05/28/2014, 007 No longer eligible based on patient's age to complete this topic Meningococcal B Vaccine Aged Out No l onger eligible based on patient's age to complete this topic RSV Immunizations Under 20 Months Aged Out No longer eligible based on patient's age to complete this topic Procedures Procedure Name Priority Date/Time Associated Diagnosis Comments LIPID PANEL Routine 04/03/2020 2:14 PM CDT Type 1 diabetes mellitus without complication ([facility]) HEMOGLOBIN, GLYCOSYLATED Routine 04/03/2020 1:51 PM CDT Type 1 diabetes mellitus without complication (CMS/HCC HHS/HCC) from Last 3 Months or Most Recently Relevant to Health Maintenance Results * (ABNORMAL) LIPID PANEL (04/03/2020 2:14 PM CDT) CHOLESTEROL 179 <200 MG/DL 04/03/2020 3:28 PM CDT [facility] TRIGLYCERIDES 56 <150 MG/DL 04/03/2020 3:28 PM CDT [facility] HDL 65 >40.0 MG/DL 04/03/2020 3:28 PM CDT [facility] LDL (CALCULATED) 103(H) <100 MG/DL 04/03/2020 3:28 PM CDT [facility] NON HDL CHOLESTEROL 114 <130 MG/DL 04/03/2020 3:28 PM CDT [facility] CHOL/HDL RATIO 2.8 0.0 - 4.5 04/03/2020 3:28 PM CDT [facility] VLDL CALCULATION 11 5 - 55 MG/DL 04/03/2020 3:28 PM CDT [facility] LIPID INTERPRETATION 04/03/2020 3:28 PM CDT [facility] Comment: [facility] CONCENSUS REPORT RECOMMENDATIONS: ADULT CHILD LOW RISK: CHOLESTEROL <200 <170 TRIGLYCERIDE <150 --- HDL >=60 --- LDL <100 <110 BORDERLINE: CHOLESTEROL 200-239 170-199 TRIGLYCERIDE 150-199 --- HDL 40-59 --- LDL 100-159 110-129 HIGH RISK: CHOLESTEROL >=240 >=200 TRIGLYCERIDE >=200 --- HDL <40 --- LDL >=160 >=130 04/03/2020 2:14 PM CDT us Naveen Bal MD LABORATORY Final Result [facility] [address] [place] [address], * HEMOGLOBIN, GLYCOSYLATED (04/03/2020 1:51 PM CDT) HGB A[address]C [address] [place] 04/03/2020 1:51 PM CDT Naveen Bal MD LABORATORY Final Result [facility] [place] [address] [place] [address], [place] [phone] from Last 3 Months or Most Recently Relevant to Health Maintenance Care Teams Grazing Aide Relationship Specialty Start Date End Date Lonnie Pond MD [address] [place] [address] PCP - General INTERNAL MEDICINE 11/10/18
[2024-12-26 23:23] LABS: Hematocrit 40.2 % (35.0-45.0); Hemoglobin 13.2 g/dL (11.7-15.5); MCH 31.4 pg (27.0-33.0); MCV 95.5 fL (80.0-100.0); Red Blood Cell Count 4.21 Million/uL (3.80-5.10)
== END 2024-12-25 15:27 | disposition home or self-care (01) ==
LOC: ANHLAB 15:30
PROVIDERS: Visit Provider Obstetrics & Gynecology
DX: Z34.90 Encounter for supervision of normal pregnancy, unspecified, unspecified trimester (principal)
CPT/HCPCS: 36415; 81003; 83021; 84443; 85027; 86593; 86703; 86762; 86787; 86803; 86850; 86900; 86901; 87086; 87186; 87340; G0432

== ENCOUNTER 2024-12-28 08:27 | Emergency (ER) | payer BC, SELFPAY ==
[2024-12-28 08:36] VITALS: BP 115/66; PULSE 97; RESP 20; TEMP 36.5; O2SAT 100
--- NOTE | 2024-12-28 08:46 | ED.GENADULT ---
HPI - General Adult General Chief complaint: Skin/Abscess/Foreign Body Stated complaint: tailbone cyst History of Present Illness HPI narrative: Araceli Nicole is a 29-year-old female with past medical history type 1 diabetes and approximately 13 weeks who presents today with of pilonidal cyst versus abscess to her tailbone area. She states this started either Tuesday or Tuesday. She was seen by her OBGYN Tuesday started on antibiotics but she felt like maybe was not getting any better so she came in to get it re-evaluated today. She denies any fevers or chills. she states that she had this before several years ago and it improved with antibiotics. Related Data Home Medications ?Medication ?Instructions ?Recorded ?Confirmed ?Last Taken ?Type insulin lispro 100 unit/mL 1 sliding scale dose subcut 11/22/24 12/25/24 Unknown History subcutaneous cartridge USEASDIRECTD cephalexin 500 mg capsule mg 12/28/24 Unknown History Allergies Allergy/AdvReac Type Severity Reaction Status Date / Time No Known Allergies Allergy Verified 12/28/24 08:36 Review of Systems Review of Systems: All systems reviewed & are unremarkable except as noted in HPI and below PMFSH Past Medical History Medical History Diabetes Surgical History Surgical History H/O wisdom tooth extraction Family History Family History Father Hypertension Social History Social History Smoking status: Never smoker Alcohol intake: never Substance use: never Substance use type: does not use Exam Narrative: GENERAL: Well-appearing, well-nourished, and in no acute distress. HEAD: Normocephalic, atraumatic. EYES: PERRLA and EOMI. ENT: Nares clear, no rhinorrhea or epistaxis. Mucous membranes moist. NECK: Supple. No adenopathy or masses. No carotid bruits or JVD CHEST: Clear to auscultation. No respiratory distress. No wheezes rales or rhonchi HEART: Regular rate and rhythm. No murmur heard. Normal peripheral pulses. ABDOMEN: Soft, nontender, nondistended, normal active bowel sounds. EXTREMITIES: Normal range of motion. No edema. SKIN: Warm, dry, no rash. NEURO: No focal deficits. Alert and oriented x3. PSYCH: Normal mood and affect. Course Course Level of Care: Express Care Visit Vital Signs Vital signs: Vital Signs Temperature 36.5 C 12/28/24 08:36 Pulse Rate 97 12/28/24 08:36 Respiratory Rate 20 12/28/24 08:36 Blood Pressure 115/66 12/28/24 08:36 Pulse Oximetry 100 12/28/24 08:36 Oxygen Delivery Room Air 12/28/24 08:36 Temperature 36.5 C 12/28/24 08:36 Pulse Rate 97 12/28/24 08:36 Respiratory Rate 20 12/28/24 08:36 Blood Pressure 115/66 12/28/24 08:36 Pulse Oximetry 100 12/28/24 08:36 Oxygen Delivery Room Air 12/28/24 08:36 Medical Decision Making MDM Narrative Medical decision making narrative: 29-year-old female who presents with cyst versus pilonidal abscess to her tailbone area she has been seen by her OB on Tuesday and started on Keflex but felt like it was getting better and came in to get re-evaluated. There is erythema noted to the area of the upper left side of his gluteal cleft. Area is more hard and not quite fluctuant or coming to head for incision drainage at this time. I also let her know that these typically need to be incised by General surgery to ensure the full area is removed. Will also add on clindamycin antibiotics. Encouraged warm compresses. I will also refer her to General surgery to follow up with regarding this area. She is given strict return precautions if she develops fevers chills, if area becomes more swollen or more painful then she should return to the ER for General surgery consult. She is agreeable to this plan all questions answered. Medical Records Medical records reviewed: Yes I reviewed the external patient's medical records. Vital Signs Vital Signs: Vital Signs Temperature 36.5 C 12/28/24 08:36 Pulse Rate 97 12/28/24 08:36 Respiratory Rate 20 12/28/24 08:36 Blood Pressure 115/66 12/28/24 08:36 Pulse Oximetry 100 12/28/24 08:36 Oxygen Delivery Room Air 12/28/24 08:36 Temperature 36.5 C 12/28/24 08:36 Pulse Rate 97 12/28/24 08:36 Respiratory Rate 20 12/28/24 08:36 Blood Pressure 115/66 12/28/24 08:36 Pulse Oximetry 100 12/28/24 08:36 Oxygen Delivery Room Air 12/28/24 08:36 Vitals reviewed by me Discharge Plan Discharge Clinical Impression: Cyst, pilonidal, with abscess Patient Disposition: Home, Self-Care Condition: Stable Instructions: Antibiotic Form, Pilonidal Cyst (ED) Additional Instructions: Continue antibiotics as ordered. He may take Tylenol for pain as needed. Start applying warm compresses to area to help elicit drainage if needed. Please call to schedule an appointment with General surgery to have this re-evaluated. Follow-up with your primary care doctor in 1 week to ensure this is improved. If he develops any worsening symptoms such as fevers, increased swelling, increased pain feeling ill or any other concerns proceed to the ER. Patient Language: Swedish Prescriptions: New clindamycin HCl 150 mg capsule 450 mg PO Q8H Qty: 90 0RF No Action cephalexin 500 mg capsule insulin lispro 100 unit/mL cartridge 1 sliding scale dose subcut USEASDIRECTD Follow-up/Referrals: PHYSICIAN,STUDIO OPERATION ENGINEER [Primary Care Provider] - Sajan Mack DO [Physician] - 3 Days Time of Disposition: 08:54
== END 2024-12-28 08:59 | disposition home or self-care (01) ==
PROVIDERS: Emergency Provider Nurse Practitioner Family
DX: L05.01 Pilonidal cyst with abscess (principal); O99.711 Diseases of the skin and subcutaneous tissue complicating pregnancy, first trimester; Z3A.13 13 weeks gestation of pregnancy; O24.011 Pre-existing type 1 diabetes mellitus, in pregnancy, first trimester; Z79.4 Long term (current) use of insulin
CPT/HCPCS: 99213; G0463

== ENCOUNTER 2025-05-01 15:32 | Outpatient (CLI) | payer BC, SELFPAY ==
--- OUTSIDE RECORDS SUMMARY | 2025-05-01 15:39 | XMS_ITS | Clinical Summary ---
Author Organization [facility] Address [address] [place] [id number] Care Team Providers Care Marine Engine Machinist Apprentice Name Role Phone Unavailable Primary Care Provider [...]
--- OUTSIDE RECORDS SUMMARY | 2025-05-01 15:39 | XMS_ITS | Clinical Summary ---
Author Organization [facility] Address [address] [address] Phone Care Team Providers Care Lime Puller Name Role Phone Unavailable Primary Care Provider Unavailabl e Allergies No known active allergies Medications Blood-Glucose Sensor (Dexcom G7 Sensor) Device Inject 1 Each by subcutaneous injection every 10 days. 4 Active glucagon (Gvoke HypoPen 1-Pack) 1 mg/0.2 mL Auto-Injector Inject 1 mg by subcutaneous injection 1 time daily as needed for Other (See Comment) (severe hypoglycemia). Active Insulin Syringe-Needle U-100 0.5 mL 31 gauge x 5/16 SyringeIndicati ons:Pre-existin g type 1 diabetes mellitus during , antepartum Use to inject insulin as directed 100 Each 2 5 Active insulin glargine (LANTUS) 100 unit/mL vialIndications :Pre-existing type 1 diabetes mellitus during , antepartum USE ONLY IF INSULIN PUMP FAILS. Inject 10 units SQ qHS as directed if pump fails 10 mL 5 Active aspirin (ECOTRIN EC) 81 mg Tablet, Delayed Release (E.C.) Take 162 mg by mouth daily. Active clindamycin HCL (CLEOCIN) 300 mg Capsule Take 450 mg by mouth 4 times daily. Has 5 more days Active cephALEXin (KEFLEX) 500 mg capsule Take 500 mg by mouth every 6 hours. Has 5 more days left Active vits15/iron/fol ic/dss ( VIT 64-ZMIE-XDOQT-D SS ORAL) Take by mouth. Activ e insulin lispro (HumaLOG KwikPen Insulin) 200 unit/mL pen syringeIndicati ons:Pre-existin g type 1 diabetes affecting , antepartum Inject up to 150U SQ qday 24 mL 6 Active Active Problems Problem Noted Date Diagnosed Date Pre-existing type 1 diabetes affecting , antepartum 01/02/2025 14 weeks gestation of 01/02/2025 Type 1 diabetes mellitus 06/11/2009 Estimated Date of Delivery Comme nts Yes 07/02/2025 Date entered levon or to episode creation Encounters Date Type Department Care Team Description 04/30/2025 External Device Data STL ABSTRACTION Provider, Abstract 04/25/2025 9:00 AM CDT Video Visit [facility] Maternal and Medicine - [facility] [place] [facility] [address] [place] [address], [place] [address] Estefania Alva NP complicated by pre-existing type 1 diabetes in third trimester (Primary Dx); 30 weeks gestation of 04/25/2025 Chart Note [facility] Maternal and Medicine - [facility] [place] [facility] [address], [place] [address] Estefania Alva NP Diabetes 04/18/2025 3:35 PM CDT - 04/18/2025 11:59 PM CDT Hospital Encounter [facility] Maternal and Ground [facility] [address] [place] [address] Mae Kline MD Discharge Disposition: Home or Self Care 04/17/2025 Chart Note [facility] Maternal Medicine [address] [place] [phone] Camryn Perla CNM Diabetes 04/16/2025 External Device Data STL ABSTRACTION Provider, Abstract 03/28/2025 11:15 AM CDT Video Visit [facility] Maternal and Medicine - [facility] [place] [facility] [address], [place] [phone] Estefania Alva NP complicated by pre-existing type 1 diabetes in second trimester (Primary Dx); 26 weeks gestation of 03/28/2025 Chart Note [facility] Maternal and Medicine - [facility] [place] [facility] [address] [place] [phone] Estefania Alva NP Diabetes 03/21/2025 1:08 PM CDT - 03/21/2025 11:59 PM CDT Hospital Encounter [facility] Maternal and Ground Floor [address] [place] [address] [place] [phone] Mae Kline MD Discharge Disposition: Home or Self Care 03/21/2025 12:45 PM CDT - 03/21/2025 11:59 PM CDT Hospital Encounter [facility] Maternal and Ground Floor [address] [place] [address] [place] [phone] Mae Kline MD Discharge Disposition: Home or Self Care 03/20/2025 Chart Note [facility] Maternal and Medicine - [facility] [place] [facility] [address] [place] [phone] Camryn Perla CNM Diabetes 03/05/2025 External Device Data STL ABSTRACTION Provider, Abstract 02/28/2025 3:15 PM CDT Video Visit [facility] Maternal and Medicine - [facility] [place] [facility] [address] [place] [phone] Estefania Alva NP complicated by pre-existing type 1 diabetes in second trimester (Primary Dx); 22 weeks gestation of 02/28/2025 Chart Note [facility] Maternal and Medicine - [facility] [place] [facility] [address] [place] [address] Estefania Alva NP Diabetes 02/18/2025 8:14 AM CDT - 02/18/2025 11:59 PM CDT Hospital Encounter [facility] Maternal and Health [facility] [address] [place] [address] Mae Kline MD Discharge Disposition: Home or Self Care 02/12/2025 Orders Only [facility] Maternal and Medicine - [facility] [place] [facility] [address] [facility] [address] [facility] [facility] [place] [address] Estefania Alva NP 02/12/2025 Chart Note [facility] Maternal and Medicine - [facility] [place] [facility] [address] [facility] [address] [facility] [place] [address] Estefania Alva NP Diabetes 01/31/2025 3:15 PM CDT Video Visit [facility] Maternal and Medicine - [facility] [place] [facility] [address] [facility] [place] [address] Estefania Alva NP Type 1 diabetes mellitus during in second trimester (Primary Dx); 18 weeks gestation of 01/31/2025 Chart Note [facility] Maternal and Medicine - [facility] [address] [facility] [place] [address] Estefania Alva NP Diabetes from Last 3 Months Social History Tobacco Use Types Packs/Day Years Used Date Smoking Tobacco: Never Assessed Estimated Date of Delivery Comme nts Yes 07/02/2025 Date entered levon or to episode creation Sex and Gender Information Value Date Recorded Sex Assigned at Not on file 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 Gender Identity Not on file Sexual Orientation Not on file Last Filed Vital Signs Vital Sign Reading Time Taken Comments Blood Pressure - - Pulse - - Temperature - - Respiratory Rate - - Oxygen Saturation - - Inhaled Oxygen Concentration - - Weight 71.7 kg (158 lb) 01/02/2025 1:55 PM PROOF MACHINE OPERATOR SUPERVISOR Height 170.2 cm (5' 7) 01/02/2025 1:55 PM PROOF MACHINE OPERATOR SUPERVISOR Body Mass Index 24.75 01/02/2025 1:55 PM PROOF MACHINE OPERATOR SUPERVISOR Plan of Treatment Upcoming Encounters Date Type Department Care Team (Late st Contact Info) Description 05/07/2025 3:30 PM CDT Appointment [facility] Maternal and Ground Floor [address] [place] [address] [place] [address] Pretty Fishman MD [address] [facility] [address] [place] [phone] 05/10/2025 3:30 PM CDT Appointment [facility] Maternal and Ground Floor [address] [place] [address] [place] [phone] Pretty Fishman MD [address] [facility] [address] [place] [address] 05/14/2025 3:00 PM CDT Appointment [facility] Maternal and Ground Floor [address] [place] [address] [place] [address] Pretty Fishman MD [address] [facility] [address] [place] [address] 05/14/2025 3:30 PM CDT Appointment [facility] Maternal and Ground Floor [address] [place] [address] [place] [address] Pretty Fishman MD [address] [facility] [address] [place] [address] 05/17/2025 2:45 PM CDT Appointment [facility] Maternal and Ground Floor [address] [place] [address] [place] [address] Pretty Fishman MD [address] [facility] [address] [place] [address] 05/21/2025 2:45 PM CDT Appointment [facility] Maternal and Ground Floor [address] [place] [address] [place] [address] Pretty Fishman MD [address] [facility] [address] [place] [address] 05/23/2025 9:00 AM CDT Video Visit [facility] Maternal and Medicine - [facility] [place] [facility] [address] [facility] [address] [place] [address] Estefania Alva, SUPRIYA [address] [facility] [address] [address] 05/24/2025 3:00 PM CDT Appointment [facility] Maternal and Ground Floor S [facility] [address] [place] [address] Pretty Fishman MD [address] [facility] [address] [place] [address] 05/28/2025 2:45 PM CDT Appointment [facility] M[facility] and [facility] [address] [place] [address] Pretty Fishman MD [address] [facility] [address] [place] [address] 05/31/2025 3:00 PM CDT Appointment [facility] Maternal and [facility] [address] [place] [address] Pretty Fishman MD [address] [facility] [address] [place] [address] Health Maintenance Due Date Last Done Comments DIABETES ANNUAL FOOT EXAM 2013 DIABETES ANNUAL RETINAL EXAM 2013 DIABETES MICROALBUMIN ANNUAL SCREEN 2013 LDL CHOLESTEROL ANNUAL 2013 CERVICAL CANCER SCREENING 2016 HPV/Cotest (21-29) 2016 PAP SMEAR 2016 DTAP/TDAP/TD VACCINES (6 - T d or Tdap) 05/13/2020 05/13/2010, 03/03/2001, 03/03/2001, Additional history exists INFLUENZA VACCINE (#1) 2025 DIABETES HBA1C Q 6 MONTHS 06/13/20252024, 09/05/2024, 06/04/2024, Additional history exists HEPATITIS B VACCINES Completed 03/02/1996, 1995, 1995 HPV VACCINES Completed 12/22/2007, 12/2006, 06/30/2007 RSV VACCINE (60+ or ) (No Doses Required) Completed Procedures Procedure Name Priority Date/Time Associated Diagnosis Comments US OB FOLLOW UP PER FETUS Routine 04/18/2025 3:56 PM CDT Pre-existing type 1 diabetes mellitus during in second trimester US OB FOLLOW UP PER FETUS Routine 03/21/2025 1:58 PM CDT 14 weeks gestation of Supervision of high risk in second trimester ECHO 2D + COLOR FLOW VELOCITY Routine 03/21/2025 1:57 PM CDT 14 weeks gestation of Supervision of high risk in second trimester US OB DETAIL SINGLE GEST Routine 02/18/2025 9:02 AM CDT 14 weeks gestation of Supervision of high risk in second trimester from Last 3 Months Results * US OB FOLLOW UP PER FETUS (04/18/2025 3:56 PM CDT) Only the most recent of2 resultswithin the time period is included. Anatomical Region Laterality Modality Pelvis Ultrasound 04/18/2025 3:39 PM CDT Narrative 04/18/2025 4:01 PM CDT STL FOLLOW UP ----- Pat. Name: ARACELI RAMIREZ Study Date: 04/18/2025 3:39pm Pat. NO: [id number] Referring MD: WILTON KIRKLAND MD Site: [facility] Quality Rep: Trini Scanlon RDMS, RVT : 1995 Age: 29 ----- INDICATION ----- Diabetes type I CODING ----- Diagnoses Z3A.29: Weeks of gestation O24.013: Pre-existing type 1 diabetes mellitus, in O09.893: Supervision of other high risk pregnancies Procedures 50752: Ultrasound, uterus, real time with image documentation, follow up, transabdominal approach per fetus HISTORY ----- OB History 1 MATERNAL ASSESSMENT ----- Physical Exam Weight 72 kg. BMI 24.75 kg/m METHOD ----- Transabdominal ultrasound examination ----- Hammond . Number of fetuses: 1 DATING ----- GA by prior assessment 29 w + 2 d APPLE by prior assessment: 07/02/2025 Ultrasound examination on: 04/18/2025 GA by U/S based upon: AC, BPD, EFW, Femur, HC GA by U/S 30 w + 5 d APPLE by U/S: 06/22/2025 Method of dating: Restore dating from previous exam Assigned: based on stated APPLE, selected on 02/18/2025 Assigned GA 29 w + 2 d Assigned APPLE: 07/02/2025 BIOMETRY ----- BPD 74.5 mm 29w 6d 57% Hadlock OFD 103.3 mm 33w 5d >99% Yvon HC 286.0 mm 31w 3d 79% Hadlock AC 275.0 mm 31w 4d 95% Hadlock Femur 57.0 mm 29w 6d 53% Hadlock HC / AC 1.04 23% Nicolaides Weight Calculation: EFW 1,661 g 30w 4d 89% Hadlock EFW (lb,oz) 3 lb 11 oz EFW by Hadlock ([id number]) Extremities / Bony Struc Biometry: FL / BPD 0.77 FL / HC 0.20 FL / AC 0.21 GENERAL EVALUATION ----- Cardiac activity present. FHR 125 bpm. movements: present. Presentation: breech Placenta: anterior Umbilical cord: Cord vessels: 3 vessel cord. Insertion site: placental insertion: normal Amniotic fluid: Amount of AF: normal amount. MVP 6.0 cm. VIVEK 15.9 cm. Q1 6.0 cm, Q2 2.2 cm, Q3 3.4 cm, Q4 4.3 cm ANATOMY ----- The following structures appear normal: Head / Neck Cranium. Cavum septi pellucidi. Heart / Thorax 4-chamber view. Cardiac rhythm. Diaphragm. Abdomen Stomach. Kidneys. Bladder. GROWTH OVERVIEW ----- Exam date GA BPD (mm) HC (mm) AC (mm) FL (mm) HL (mm) EFW (g) 02/18/2025 20w 6d 49.8 58% 187.8 51% 169.9 78% 36.0 61% 34.4 77% 439 83% 03/21/2025 25w 2d 63.0 50% 243.2 68% 216.6 68% 45.1 25% 841 57% 04/18/2025 29w 2d 74.5 57% 286.0 79% 275.0 95% 57.0 53% 1,661 89% COMMENT ----- Patient's name and date of were verified by the stain remover prior to the exam IMPRESSION ----- Impression: - Hammond viable intrauterine at 29w 2d in breech presentation. - Estimated weight is 1661 g (89%ile) with abdominal circumference at the 95%ile - Amniotic fluid volume is normal (Amniotic fluid index = 15.9 cm, maximum vertical pocket = 6 cm) - No major malformations identified within the limitations of ultrasound Recommendations: - Follow up ultrasound for growth in 4 weeks - Twice weekly testing starting at 32 weeks Thank you for inviting us to participate in your patient's care. Procedure Note Fela Rivera MD - 04/18/2025 ST FOLLOW UP ----- Pat. Name:Angélica RAMIREZ Date:04/18/2025 3:39pm Pat. NO: [id number] MD:WILTON KIRKLAND [place]Trini Scanlon RDMS, RVT :1995Age:29 ----- INDICATION ----- Diabetes type I CODING ----- Diagnoses Z3A.29: Weeks of gestation O24.013: Pre-existing type 1 diabetes mellitus, inpregnancy O09.893: Supervision of other high riskpregnancies Procedures 80245: Ultrasound, uterus, real time withimage documentation, follow up, transabdominal approach per fetus HISTORY ----- OB History 1 MATERNAL ASSESSMENT ----- Physical Exam Weight 72 kg. BMI 24.75 kg/m METHOD ----- Transabdominal ultrasound examination ----- Hammond . Number of fetuses: 1 DATING ----- GA by prior [id number] w + 2 d APPLE by prior assessment:07/02/2025 Ultrasound examination on:04/18/2025 GA by U/S based upon:AC, BPD, EFW, Femur, HC GA by U/S30 w + 5 d APPLE by U/S:06/22/2025 Method of dating:Restore dating from previous exam Assigned:based on stated APPLE, selected on 02/18/2025 Assigned GA29 w + 2 d Assigned APPLE:07/02/2025 BIOMETRY ----- BPD 74.5 mm 29w 6d 57%Hadlock OFD 103.3 mm 33w 5d >99%Yvon HC 286.0 mm 31w 3d 79%Hadlock AC 275.0 mm 31w 4d 95%Hadlock Femur 57.0 mm 29w 6d 53%Hadlock HC / AC 1.04 23%Nicolaides Weight Calculation: EFW 1,661 g 30w 4d89% Hadlock EFW (lb,oz) 3 lb 11 oz EFW by Hadlock ([id number]) Extremities / Bony Struc Biometry: FL / BPD 0.77 FL / HC 0.20 FL / AC 0.21 GENERAL EVALUATION ----- Cardiac activity present. FHR 125 bpm. movements: present.Presentation: breech Placenta: anterior Umbilical cord: Cord vessels: 3 vessel cord. Insertion site: placentalinsertion: normal Amniotic fluid: Amount of AF: normal amount. MVP 6.0 cm. VIVEK 15.9 cm. Q16.0 cm, Q2 2.2 cm, Q3 3.4 cm, Q4 4.3 cm ANATOMY ----- The following structures appear normal: Head / Neck Cranium. Cavum septi pellucidi. Heart / Thorax 4-chamber view. Cardiac rhythm. Diaphragm. Abdomen Stomach. Kidneys. Bladder. GROWTH OVERVIEW ----- Exam date GA BPD (mm) HC (mm) AC (mm) FL(mm) HL (mm) EFW (g) 02/18/2025 20w 6d 49.8 58% 187.8 51% 169.9 78%36.0 61% 34.4 77% 439 83% 03/21/2025 25w 2d 63.0 50% 243.2 68% 216.6 68%45.1 25% 841 57% 04/18/2025 29w 2d 74.5 57% 286.0 79% 275.0 95%57.0 53% 1,661 89% COMMENT ----- Patient's name and date of were verified by the stain remover prior tothe exam IMPRESSION ----- Impression: - [place] viable intrauterine at 29w 2d in breechpresentation. - Estimated weight is 1661 g (89%ile) with abdominal circumferenceat the 95%ile - Amniotic fluid volume is normal (Amniotic fluid index = 15.9 cm, maximumvertical pocket = 6 cm) - No major malformations identified within the limitations of ultrasound Recommendations: - Follow up ultrasound for growth in 4 weeks - Twice weekly testing starting at 32 weeks Thank you for inviting us to participate in your patient's care. us Mae Kline MD US ORDERABLES Final Result * ECHO 2D + COLOR FLOW VELOCITY (03/21/2025 1:57 PM CDT) Narrative 03/21/2025 1:57 PM CDT Order information only. Exam was auto-finalized. us Mae Kline MD US ORDERABLES Final Result * US OB DETAIL SINGLE GEST (02/18/2025 9:02 AM CDT) Anatomical Region Laterality Modality Pelvis Ultrasound 02/18/2025 8:17 AM CDT Narrative 02/18/2025 9:03 AM CDT STL COMP ----- Pat. Name: ARACELI RAMIREZ Study Date: 02/18/2025 8:17am Pat. NO: [id number] Referring MD: WILTON KIRKLAND MD Site: [place] Quality Rep: Rosalina Negron RDMS : 1995 Age: 29 ----- INDICATION ----- Anatomy Survey [facility] low risk genetics Diabetes type I CODING ----- Diagnoses Z3A.20: Weeks of gestation O24.012: Pre-existing type 1 diabetes mellitus, in O09.892: Supervision of other high risk pregnancies Z36.3: Encounter for screening for malformations Procedures 43762: Ultrasound, uterus, real time with image documentation, and maternal evaluation plus detailed anatomic examination, transabdominal approach METHOD ----- Transabdominal ultrasound examination ----- [place] . Number of fetuses: 1 DATING ----- Method of dating: based on stated APPLE GA by prior assessment 20 w + 6 d APPLE by prior assessment: 07/02/2025 Ultrasound examination on: 02/18/2025 GA by U/S based upon: AC, BPD, EFW, Femur, HC GA by U/S 21 w + 3 d APPLE by U/S: 06/28/2025 Assigned: based on stated APPLE, selected on 02/18/2025 Assigned GA 20 w + 6 d Assigned APPLE: 07/02/2025 BIOMETRY ----- BPD 49.8 mm 21w 1d 58% Hadlock OFD 67.0 mm 22w 4d 94% Yvon HC 187.8 mm 21w 1d 51% Hadlock Cerebellum tr 22.2 mm 21w 4d 62% Servin Nuchal fold 3.8 mm AC 169.9 mm 22w 0d 78% Hadlock Femur 36.0 mm 21w 3d 61% Hadlock Humerus 34.4 mm 21w 5d 77% Yvon HC / AC 1.11 18% Nicolaides Weight Calculation: EFW 439 g 21w 4d 83% Hadlock EFW (lb,oz) 0 lb 15 oz EFW by Hadlock ([id number]) Head / Face / Neck Biometry: Joy Operator Helper 5.9 mm CM 3.2 mm 3% Nicolaides Outer IOD 31.2 mm 20w 1d 12% Yvon Extremities / Bony Struc Biometry: FL / BPD 0.72 53% Hadlock FL / HC 0.19 45% Hadlock FL / AC 0.21 22% Hadlock GENERAL EVALUATION ----- Cardiac activity present. FHR 141 bpm. movements: present. Presentation: cephalic Placenta: Placental site: anterior Umbilical cord: Cord vessels: 3 vessel cord. Insertion site: placental insertion: normal Amniotic fluid: Amount of AF: normal amount. MVP 5.0 cm ANATOMY ----- The following structures appear normal: Head / Neck Cranium. Lateral ventricles. Choroid plexus. Midline falx. Cavum septi pellucidi. Cerebellum. Cisterna magna. Nuchal fold. Face Lips. Profile. Nose. Palate. Orbits. Heart / Thorax RVOT view. 3-vessel view. 0-ybdeap-ehqdqvs view. Situs. Aortic arch view. Ductal arch view. Superior vena cava. Inferior vena cava. High short axis view. Cardiac rhythm. Diaphragm. Abdomen Abdominal wall. Stomach. Kidneys. Bladder. Spine Cervical spine. Thoracic spine. Lumbar spine. Sacral spine. Extremities / Arms. Right hand. Left hand. Legs. Right foot. Left foot. Skeleton The following structures could not be adequately visualized: Heart / Thorax 4-chamber view. LVOT view. MATERNAL STRUCTURES ----- Cervix Visualized Approach - Transabdominal: Cervical length 39.7 mm Right Ovary Not visualized Left Ovary Not visualized GROWTH OVERVIEW ----- Exam date GA BPD (mm) HC (mm) AC (mm) FL (mm) HL (mm) EFW (g) 02/18/2025 20w 6d 49.8 58% 187.8 51% 169.9 78% 36.0 61% 34.4 77% 439 83% COMMENT ----- Patient's name and date of were verified by the stain remover before the exam IMPRESSION ----- 1. Single living fetus with a gestational age of 20w 6d based on the reported clinical dates. 2. Current growth parameters are consistent with the stated EDC. The fetus is appropriate for gestational age in size at the 83% (439 g). 3. Detailed anatomic survey is unremarkable. No gross structural abnormalities noted. No sonographic markers for aneuploidy noted. - Suboptimal/incomplete views of: 4CH, LVOT. 4. Amniotic fluid volume is normal for gestational age. 5. The cervical length is within normal range for gestational age. 6. The right and left ovary are not visualized. 7. Placenta is anterior . No previa/not low-lying. The placenta cord insertion is normal. Recommendations: - Screening echocardiogram planned for 24 weeks. Thank you for allowing us to participate in the care of this patient. Procedure Note Arielle Vang MD - 02/18/2025 STL COMP ----- Pat. Name:Angélica RAMIREZ Date:02/18/2025 8:17am Pat. NO: [id number] MD:WILTON KIRKLAND MD [facility]Rosalina Negron RDMS :1995Age:29 ----- INDICATION ----- Anatomy Survey pt states low riskgenetics Diabetes type I CODING ----- Diagnoses Z3A.20: Weeks of gestation O24.012: Pre-existing type 1 diabetes mellitus, inpregnancy O09.892: Supervision of other high riskpregnancies Z36.3: [facility] [id number]: Ultrasound, uterus, real time withimage documentation, and maternal evaluation plus detailed anatomic examination,transabdominal approach METHOD ----- Transabdominal ultrasound examination ----- Hammond . Number of fetuses: 1 DATING ----- Method of dating:based on stated APPLE GA by prior [id number] w + 6 d APPLE by prior assessment:07/02/2025 Ultrasound examination on:02/18/2025 GA by U/S based upon:AC, BPD, EFW, Femur, HC GA by U/S21 w + 3 d APPLE by U/S:06/28/2025 Assigned:based on stated APPLE, selected on 02/18/2025 Assigned GA20 w + 6 d Assigned APPLE:07/02/2025 BIOMETRY ----- BPD 49.8 mm 21w 1d58% Hadlock OFD 67.0 mm 22w 4d94% Yvon HC 187.8 mm 21w 1d51% Hadlock Cerebellum tr 22.2 mm 21w 4d62% Servin Nuchal fold 3.8 mm AC 169.9 mm 22w 0d78% Hadlock Femur 36.0 mm 21w 3d61% Hadlock Humerus 34.4 mm 21w 5d77% Yvon HC / AC 1.11 18%Nicolaides Weight Calculation: EFW 439 g 21w 4d 83%Hadlock EFW (lb,oz) 0 lb 15 oz EFW by Hadlock ([id number]) Head / Face / Neck Biometry: Joy Operator Helper 5.9 mm CM 3.2 mm 3%Nicolaides Outer IOD 31.2 mm 20w 1d 12%Yvon Extremities / Bony Struc Biometry: FL / BPD 0.72 53%Hadlock FL / HC 0.19 45%Hadlock FL / AC 0.21 22%Hadlock GENERAL EVALUATION ----- Cardiac activity present. FHR 141 bpm. movements: present.Presentation: cephalic Placenta: Placental site: anterior Umbilical cord: Cord vessels: 3 vessel cord. Insertion site: placentalinsertion: normal Amniotic fluid: Amount of AF: normal amount. MVP 5.0 cm ANATOMY ----- The following structures appear normal: Head / Neck Cranium. Lateral ventricles. Choroid plexus.Midline falx. Cavum septi pellucidi. Cerebellum. Cisterna magna. Nuchal fold. Face Lips. Profile. Nose. Palate. Orbits. Heart / Thorax RVOT view. 3-vessel view. 8-inxaso-vheatkb view.Situs. Aortic arch view. Ductal arch view. Superior vena cava. Inferior vena cava. High short axis view.Cardiac rhythm. Diaphragm. Abdomen Abdominal wall. Stomach. Kidneys. Bladder. Spine Cervical spine. Thoracic spine. Lumbar spine.Sacral spine. Extremities / Arms. Right hand. Left hand. Legs. Right foot.Left foot. Skeleton The following structures could not be adequately visualized: Heart / Thorax 4-chamber view. LVOT view. MATERNAL STRUCTURES ----- Cervix Visualized Approach - Transabdominal: Cervical length 39.7mm Right Ovary Not visualized Left Ovary Not visualized GROWTH OVERVIEW ----- Exam date GA BPD (mm) HC (mm) AC (mm) FL(mm) HL (mm) EFW (g) 02/18/2025 20w 6d 49.8 58% 187.8 51% 169.9 78%36.0 61% 34.4 77% 439 83% COMMENT ----- Patient's name and date of were verified by the stain remover beforethe exam IMPRESSION ----- 1. Single living fetus with a gestational age of 20w 6d based on thereported clinical dates. 2. Current growth parameters are consistent with the stated EDC. The fetusis appropriate for gestational age in size at the 83% (439 g). 3. Detailed anatomic survey is unremarkable. No gross structuralabnormalities noted. No sonographic markers for aneuploidy noted. - Suboptimal/incomplete views of: 4CH, LVOT. 4. Amniotic fluid volume is normal for gestational age. 5. The cervical length is within normal range for gestational age. 6. The right and left ovary are not visualized. 7. Placenta is anterior . No previa/not low-lying. The placenta cordinsertion is normal. Recommendations: - Screening echocardiogram planned for 24 weeks. Thank you for allowing us to participate in the care of this patient. us Mae Kline MD ORDERABLES Edited Result - Final from Last 3 Months Insurance [facility] BLUE ACCESS CHOICE
--- OUTSIDE RECORDS SUMMARY | 2025-05-01 15:39 | XMS_ITS | Encounter Summary ---
Author Organization [employer] Address 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 FOOTBALLER Gender Identity Not on file Sexual Orientation Not on file documented as of this encounter Plan of Treatment Upcoming Encounters Date Type Department Care Team (Late st Contact Info) Description 05/07/2025 3:30 PM CDT Appointment [facility] M[facility] and Ground Floor [facility] [address] [place] [phone] Pretty Fishman MD [address] [place] [address] [address] [place] [phone] 05/10/2025 3:30 PM CDT Appointment [facility] M[facility] and Ground [facility] [address] [place] [address] Pretty Fishman MD [address] [place] [address] [address] [place] [phone] 05/14/2025 3:00 PM CDT Appointment [facility] Maternal and Ground Floor [place] [address] [facility] [place] [phone] Pretty Fishman MD [address] [facility] [address] [place] [address] 05/14/2025 3:30 PM CDT [facility] [address] [place] [facility] [place] [address] Pretty Fishman MD [address] [facility] [address] [place] [address] 05/17/2025 2:45 PM CDT [facility] [address] [place] [facility] [place] [address] Pretty Fishman MD [address] [facility] [address] [place] [address] 05/21/2025 2:45 PM CDT [facility] [place] [address] Pretty Fishman MD [address] [facility] [address] [place] [address] 05/23/2025 9:00 AM CDT Video Visit [facility] Maternal and Medicine - Medical [place] [address] [facility] [address] [place] [address] Estefania Alva NP [address] [facility] [address] [place] [address] 05/24/2025 3:00 PM CDT Appointment [facility] and Ground Floor [facility] [address] [place] [facility] [place] [address] Pretty Fishman MD [address] [facility] [address] [place] [address] 05/28/2025 2:45 PM CDT Appointment [facility] Maternal and Ground Floor S [facility] [address] [place] [phone] Pretty Fishman MD [address] [facility] [address] [place] [phone] 05/31/2025 3:00 PM CDT Appointment [facility] Maternal and Ground Floor S [facility] [address] [place] [address] Pretty Fishman MD [address] [facility] [address] [place] [phone] documented as of this encounter Visit Diagnoses Not on filedocumented in this encounter
--- OUTSIDE RECORDS SUMMARY | 2025-05-01 15:39 | XMS_ITS | Clinical Summary ---
Author Organization [facility] Address [address] [facility] [place] [address] Care Team Providers Care Power Tong Operator Name Role Phone Unavailable Primary Care Provider Unavailabl e Source Comments [facility],non-owned Affiliates and Associated Physician Practices is amultiple site organization consisting of ambulatory clinics and hospital sitesin [place], [place], [place] and [place]. This disclosure is being madepursuant to the Care Everywhere program and may not contain all information available regarding this patient. Last updated 18.[facility] [place] [facility] [employer] Allergies No known active allergies Social History Tobacco Use Types Packs/Day Years Used Date Smoking Tobacco: Never Assessed Estimated Date of Delivery Comme nts Yes 07/02/2025 Based on last me nstrual period of 09/25/2024 Sex and Gender Information Value Date Recorded Sex Assigned at Not on file Legal Sex Female 11:15 AM ART EDUCATOR Gender Identity Not on file Sexual Orientation Not on file Plan of Treatment Health Maintenance Due Date Last Done Comments HIV SCREENING 2010 HEPATITIS C SCREENING 09/09/2013 DTAP/TDAP/TD VACCINES (1 - Tdap) 2014 HEPATITIS B VACCINE (1 of 3 - 19+ 3-dose series) 2014 PAP SMEAR 2016 COVID-19 VACCINE (3 - 2023-2 5 season) 2024 10/01/2021, 05/28/2021 DEPRESSION SCREENING 10/31/2024 OB-ONE HOUR GLUCOSE 03/26/2025 OB-TDAP CURRENT 04/02/2025 05/13/2010 OB-RHOGAM INJECTION 04/09/2025 INFLUENZA VACCINE (Season Ended) 2025 07/29/2015, 11/22/2012 ZOSTER VACCINE (1 of 2) 2045 HIB VACCINE Aged Out No longer eligi ble based on patient's age to complete this topic HPV VACCINE Aged Out No longer eligi ble based on patient's age to complete this topic MENINGOCOCCAL (Group B) VACCINE SHARED DECISION-MAKING Aged Out No longer eligible based on patient's age to complete this topic MENINGOCOCCAL GROUPS A/C/Y/W VACCINE Aged Out No longer eligible b ased on patient's age to complete this topic PNEUMOCOCCAL VACCINE Aged Out No long er eligible based on patient's age to complete this topic Respiratory Syncytial Virus (RSV) Vaccine Pt: or over 60 yrs (No Doses Required) Completed
--- OUTSIDE RECORDS SUMMARY | 2025-05-01 15:39 | XMS_ITS | Referral Summary ---
Author Organization [facility] Address [address] [place] [address] Care Team Providers Care Bolt Loader Name Role Phone Lonnie Pond MD Primary Care Provider [phone] Naveen Bal MD Unavailable Allergies No known active allergies Medications glucagon (Gvoke HypoPen 1-Pack) 1 mg/0.2 mL auto-injector Inject 1 mg as needed by subcutaneous route as needed for 1 day. Active subcutaneous insulin pump misc Tandem Ac tive blood-glucose sensor (Dexcom G7 Sensor) device Apply to skin every 10 days 9 each 3 06/04/20 24 Active insulin lispro (HumaLOG) 100 unit/mL vial for injectionIndicati ons:Type 1 diabetes mellitus with hyperglycemia (HCC) Use to administer insulin SQ via insulin pump. MDD of 70 units. 70 mL 1 12/10/19 25 Active insulin glargine 100 unit/mL vial for injection USE ONLY IF INSULIN PUMP FAILS. Inject 10 units SQ qHS as directed if pump fails 12/11/19 25 Active insulin syringe-needle U-100 0.5 mL 31 gauge x 5/16 syringe Use to inject insulin as directed 12/11/19 25 Active Active Problems Patient Care Coordination No te Formatting of this note migh t be different from the original. Patient's Vocational Director is Dr. Naveen Bal in [place], [place] p) [phone] Problem Noted Date Diagnosed Date Nevus of [...] on file Legal Sex Female 9:01 PM DIRECTOR BUSINESS INTELLIGENCE Gender Identity Not on file Sexual Orientation Not on file Last Filed Vital Signs Vital Sign Reading Time Taken Comments Blood Pressure 116/72 12/14/2024 11:32 AM DIRECTOR BUSINESS INTELLIGENCE Pulse 83 12/14/2024 11:32 AM DIRECTOR BUSINESS INTELLIGENCE Temperature 36.7 C (98.1 F) 12/14/2024 11:32 AM DIRECTOR BUSINESS INTELLIGENCE Respiratory Rate - - Oxygen Saturation - - Inhaled Oxygen Concentration - - Weight 69.7 kg (153 lb 9.6 oz) 12/14/2024 11:32 AM DIRECTOR BUSINESS INTELLIGENCE Height 170.2 cm (5' 7) 12/14/2024 11:32 AM DIRECTOR BUSINESS INTELLIGENCE Body Mass Index 24.06 12/14/2024 11:32 AM DIRECTOR BUSINESS INTELLIGENCE Plan of Treatment Not on file Procedures Procedure Name Priority Date/Time Associated Diagnosis Comments THYROID FUNCTION CASCADE Routine 12/14/2024 12:59 PM DIRECTOR BUSINESS INTELLIGENCE Type 1 diabetes mellitus with hyperglycemia (HCC) POCT HEMOGLOBIN A1C Routine 12/14/2024 1 1:43 AM DIRECTOR BUSINESS INTELLIGENCE Type 1 diabetes mellitus with hyperglycemia (HCC) [...] to Health Maintenance Results * Thyroid Function [place] (12/14/2024 12:59 PM DIRECTOR BUSINESS INTELLIGENCE) TSH 0.47 0.30 - 4.20 mcIUnit/mL Blood 12/14/2024 12:5 9 PM DIRECTOR BUSINESS INTELLIGENCE 12/14/2024 8:39 PM DIRECTOR BUSINESS INTELLIGENCE Saloni Fragoso MD LAB BLOOD ORDERABLES Final Result [facility] [id number] [place] [address] * POCT hemoglobin A1c (12/14/2024 11:43 AM DIRECTOR BUSINESS INTELLIGENCE) Hemoglobin A1C, POC 6.5 4.0 - 5.6 % Blood 12/14/2024 11:4 3 AM DIRECTOR BUSINESS INTELLIGENCE Saloni Fragoso MD POINT OF CARE TEST [...] BLOOD ORDERABLES Final Result Performing Organization Address [facility] de Phone Number [facility] [address] [place] [address] * Albumin Creatinine Ratio, Urine (06/04/2024 3:33 PM CDT) Albumin Ur <12.0 mg/L Comment: Interpretive Data No reference range established. Current interpretive data was last revised 2019. Creatinine Ur 52.4 mg/dL [facility] Comment: Interpretive Data No reference range established. Current interpretive data was last revised 2019. Albumin Creatinine Ratio, Ur <23 1 - 29 mg/g [facility] Urine 06/04/2024 3:33 PM CDT 06/04/2024 6:35 PM CDT Saloni Fragoso MD LAB URINE ORDERABLES Final Result Performing Organization Address [facility] de Phone Number [facility] [address] [facility] [place] [address] * (ABNORMAL) Lipid panel (06/04/2024 3:33 PM [...] LAB BLOOD ORDERABLES Final Result [facility] [address] [place] [address] from Last 3 Months or Most Recently Relevant to Health Maintenance Insurance [employer] Care Teams Bolt Loader Relationship Specialty Start Date End Date Lonnie Pond MD PCP - General 10/14/14 Naveen Bal MD Consulting Physician Endocrinology Diabetes & Metabolism 05/31/20
--- OUTSIDE RECORDS SUMMARY | 2025-05-01 15:39 | XMS_ITS | Clinical Summary ---
Author Organization [facility] Address [address] [place] [address] Care Team Providers Care Desktop Technician Name Role Phone Lonnie Pond MD Primary Care Provider [phone] Naveen Bal MD Unavailable [phone] Allergies No known active allergies Medications glucagon [...] t be different from the original. Patient's Prison Guard Supervisor is Dr. 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 Stressed importance of tight blood glucose control/ diet/exercise and A1C <7% to reduce the risk of diabetic complications. Report sent to PCP/endo. Estimated Date of Delivery Comme nts Yes 07/02/2025 Medical History Medical History Date Comments Type 1 diabetes mellitus (HCC) D iabetes type 1; Comments: [facility] 07/22/2014 - Family History Medical History Relation [...] on file Legal Sex Female 9:01 PM SUPERINTENDENT BOARD MILL Gender Identity Not on file Sexual Orientation Not on file Obstetrics History Para Term AB IAB SAB Ectopic Multiple Livin g Live Births 1 Date Outcome GA Total Labor Labor/2nd/3rd Weight Sex Type Anes PTL Erin A1 A5 Name Clin Current Last Filed Vital Signs Vital Sign Reading Time Taken Comments Blood Pressure 116/72 12/14/2024 11:32 AM SUPERINTENDENT BOARD MILL Pulse 83 12/14/2024 11:32 AM SUPERINTENDENT BOARD MILL Temperature 36.7 C (98.1 F) 12/14/2024 11:32 AM SUPERINTENDENT BOARD MILL Respiratory Rate - - Oxygen Saturation - - Inhaled Oxygen Concentration - - Weight 69.7 kg (153 lb 9.6 oz) 12/14/2024 11:32 AM SUPERINTENDENT BOARD MILL Height 170.2 cm (5' 7) 12/14/2024 11:32 AM SUPERINTENDENT BOARD MILL Body Mass Index 24.06 12/14/2024 11:32 AM SUPERINTENDENT BOARD MILL Plan of Treatment Health Maintenance Due Date Last Done Comments Cervical Cancer Screening 1995 Depression Screening 1995 Foot Exam 1995 Hepatitis C Screening 1995 Regular Well Visit/Exam 18-64 2013 Pneumococcal vaccine <65 (1 of 2 - PCV) 2014 DTaP/Tdap/Td Vaccine (7 - Td or Tdap) 05/13/2020 05/13/2010, 03/03/2001, 03/03/2001, Additional history exists Dilated Eye Exam 06/04/2021 06/04/2020 Albumin Creatinine Ratio, Urine 06/04/2025 Lipid Panel 06/04/2025 06/04/2024, 04/03/2020 eGFR 06/04/2025 06/04/2024 Hemoglobin A1C 06/13/2025 12/14/2024, 1103/2024, 06/04/2024, Additional history exists Influenza Vaccine (Season Ended) 2025 07/29/20 15, 11/22/2012 TSH Level 12/14/2025 12/14/2024, 080 02/2024, 04/03/2020 Hepatitis B Screening Completed 03/02/1996 , 1995, 1995 Varicella Vaccines Completed 03/03/2001, 02/01/1997 HPV Vaccines Completed 12/22/2007, 12/2006, 06/30/2007 Procedures Procedure Name Priority Date/Time Associated Diagnosis Comments THYROID FUNCTION CASCADE Routine 12/14/2024 12:59 PM SUPERINTENDENT BOARD MILL Type 1 diabetes mellitus with hyperglycemia (HCC) POCT HEMOGLOBIN A1C Routine 12/14/2024 1 1:43 AM SUPERINTENDENT BOARD MILL Type 1 diabetes mellitus with hyperglycemia (HCC) [...] to Health Maintenance Results * Thyroid Function [place] (12/14/2024 12:59 PM SUPERINTENDENT BOARD MILL) TSH 0.47 0.30 - 4.20 mcIUnit/mL Blood 12/14/2024 12:5 9 PM SUPERINTENDENT BOARD MILL 12/14/2024 8:39 PM SUPERINTENDENT BOARD MILL Saloni Fragoso MD LAB BLOOD ORDERABLES Final Result [facility] [address] Department [place] [address] * POCT hemoglobin A1c (12/14/2024 11:43 AM SUPERINTENDENT BOARD MILL) Hemoglobin A1C, POC 6.5 4.0 - 5.6 % Blood 12/14/2024 11:4 3 AM SUPERINTENDENT BOARD MILL Saloni Fragoso MD POINT OF CARE TEST [...] of Race in Diagnosing Kidney Disease, JASN 202). The CKD-EPI equation should not be used for patients with unstable renal function and has not been validated in children and those over 70. Current interpretive data was last reviewed 2021. Blood 06/04/2024 3:33 PM CDT 06/04/2024 6:44 PM CDT Saloni Fragoso MD LAB BLOOD ORDERABLES Final Result Performing Organization Address [facility] Co de Phone Number [facility] [address] [place] [address] * Albumin Creatinine Ratio, Urine (06/04/2024 3:33 PM CDT) Albumin Ur <12.0 mg/L Comment: Interpretive Data No reference range established. Current interpretive data was last revised 2019. Creatinine Ur 52.4 mg/dL [facility] Comment: Interpretive Data No reference range established. Current interpretive data was last revised 2019. Albumin Creatinine Ratio, Ur <23 1 - 29 mg/g [facility] Urine 06/04/2024 3:33 PM CDT 06/04/2024 6:35 PM CDT Saloni Fragoso MD LAB URINE ORDERABLES Final Result Performing Organization Address [facility] de Phone Number [facility] [address] Department [place] [address] * (ABNORMAL) Lipid panel (06/04/2024 3:33 PM [...] revised on 2018. Triglycerides 82 <=149 mg/dL [facility] Comment: Interpretive Data Ages < or = [...] LAB BLOOD ORDERABLES Final Result [facility] [address] Department [place] [address] from Last 3 Months or Most Recently Relevant to Health Maintenance Insurance [employer] ACCESS [facility]ICE [facility] Address: [place] [address] [employer] ACCESS CHOICE Care Teams Desktop Technician Relationship Specialty Start Date End Date Lonnie Pond MD PCP - General 10/14/14 Naveen Bal MD Consulting Physician Endocrinology Diabetes & Metabolism 05/31/20
--- OUTSIDE RECORDS SUMMARY | 2025-05-01 15:40 | XMS_ITS | Data Portability ---
Author Organization [place] - [facility] [employer], Main Office Address [address] [place] [address] Assessment No assessment recorded. Plan of Treatment Reminders Order Date Submit Date Provider Last Modified By Organization Details Last Modified Time Details Appointments None recorded. Lab None recorded. Referral endocrinolo gy referral 2022 023 arely [email or web address] Naveen Bal MD, [address] [place] [address], [address], 3 17:31:58 Procedures None recorded. Surgeries None recorded. Imaging None recorded. Medication Orders Novolog U-100 Insulin aspart 100 unit/mL subcutaneou s solution [address] [facility] [place], [address], 3 17:20:17 Blisovi Fe / (28) 1 mg-20 mcg (21)/75 mg (7) tablet 2022 023 [email or web address], [place], [address], 3 17:25:18 Patient TargetsNo targets recorded. Patient InstructionsNo instructions recorded. Reason for Referral Endocrinology Referral for U ncontrolled type 1 diabetes mellitus Referring Physician: Oneyda Hernandez, Endocrinology, Encounter Date: 07/12/2023 Results Created Date Observation Date Name Description Value Unit Range Abnormal Flag Note LastModifiedBy Organization Detail LastModifiedTime 09/30/20 22 10/01/2022 HEMOG LOBIN A1C hemoglobin A1C 8.8 %_of_ total _HGB <5.7 high For someo ne witho ut known diabe crystal, a hemog lobin A1c value of 6.5% or great er indic ates that they may have diabe crystal and this shoul d be confi rmed with a follo w-up test. For someo ne with known diabe crystal, a value <7% indic ates that their diabe crystal is well contr olled and a value great er than or equal to 7% indic ates subop timal contr ol. A1c targe ts shoul d be indiv idual ized based on durat ion of diabe crystal, age, comor bid condi tions , and other consi derat ions. Curre ntly, no conse nsus exist s sarah bustamante use of hemog lobin A1c for diagn osis of diabe crystal for child jere. Not Available [employer] [address] [address] [place], [address], 10/01/2022 15:14:36 09/30/20 22 10/01/2022 ALBUM IN, RANDO M URINE W/CRE ATINI NE creatinine, random urine 292 mg/dL 20-320 normal Not Available [employer] [facility] [address] [place], [address], 10/01/2022 15:14:36 09/30/20 22 10/01/2022 ALBUM IN, RANDO M URINE W/CRE ATINI NE albumin, urine 2.8 mg/dL see note: normal Refer ence Range : Refer ence Range Not estab lishe d Not Available [facility] [employer] [address] [address] [place], [address], 10/01/2022 15:14:36 09/30/20 22 10/01/2022 ALBUM IN, RANDO M URINE W/CRE ATINI NE albumin/crea tinine ratio, random urine 10 mcg/m g_cre at <30 normal The ADA defin es abnor malit ies in album in excre tion as follo ws: Album inuri a Categ ory Resul t (mcg/ mg creat inine ) Kaylah l to Mildl y incre ased <30 Moder ately incre ased 30-29 9 Sever kasey incre ased > OR = 300 The ADA recom mends that at least two of three speci mens colle cted withi n a 3-6 month perio d be abnor mal befor e consi james g a patie nt to be withi n a diagn ostic categ ory. Not Available [address] [place], [address], 10/01/2022 15:14:36 09/30/20 22 10/01/2022 COMPR EHENS ALIS METAB OLIC PANEL glucose 107 mg/dL 65-99 high Fasti ng refer ence inter fransisco For someo ne witho ut known diabe crystal, a gluco se value betwe en 100 and 125 mg/dL is consi stent with predi abete s and shoul d be confi rmed with a follo w-up test. Not Available [address] [address] [place], [address], 10/01/2022 15:14:35 09/30/20 22 10/01/2022 COMPR EHENS ALIS METAB OLIC PANEL BUN/creatini ne ratio not applic able (calc ) 6-22 Not Available [address], [address], 10/01/2022 15:14:35 09/30/20 22 10/01/2022 COMPR EHENS ALIS METAB OLIC PANEL urea nitrogen (BUN) 8 mg/dL 7-25 normal Not Available [facility] [address], [address], 10/01/2022 15:14:35 09/30/20 22 10/01/2022 COMPR EHENS ALIS METAB OLIC PANEL creatinine 0.86 mg/dL 0.60-1 .24 normal Not Available [employer] [address] [place], [address], 10/01/2022 15:14:35 09/30/20 22 10/01/2022 COMPR EHENS ALIS METAB OLIC PANEL eGFR 122 mL/mi n/1.7 3m2 > or = 60 normal The eGFR is based on the CKD-E PI 2020 equat ion. To calcu late the new eGFR from a previ ous Creat inine or Cysta tin C resul t, go to https :[email or web address]/ kdoqi /gfr% 5Fcal culat or Not Available [address] [address] [place], [address], 10/01/2022 15:14:35 09/30/20 22 10/01/2022 COMPR EHENS ALIS METAB OLIC PANEL sodium 138 mmol/ L 135-14 6 normal Not Available [address], [address], 10/01/2022 15:14:35 09/30/20 22 10/01/2022 COMPR EHENS ALIS METAB OLIC PANEL potassium 4.2 mmol/ L 3.5-5. 3 normal Not Available [address], [address], 10/01/2022 15:14:35 09/30/20 22 10/01/2022 COMPR EHENS ALIS METAB OLIC PANEL chloride 102 mmol/ L 98-110 normal Not Available [employer] [address], [address], 10/01/2022 15:14:35 09/30/20 22 10/01/2022 COMPR EHENS ALIS METAB OLIC PANEL carbon dioxide 27 mmol/ L 20-32 normal Not Available [address], [address], 10/01/2022 15:14:35 09/30/20 22 10/01/2022 COMPR EHENS ALIS METAB OLIC PANEL calcium 9.5 mg/dL 8.6-10 .3 normal Not Available [address], [address], 10/01/2022 15:14:35 09/30/20 22 10/01/2022 COMPR EHENS ALIS METAB OLIC PANEL protein, total 7.5 g/dL 6.1-8. 1 normal Not Available [address], [address], 10/01/2022 15:14:35 09/30/20 22 10/01/2022 COMPR EHENS ALIS METAB OLIC PANEL albumin 4.3 g/dL 3.6-5. 1 normal Not Available [address], [address], 10/01/2022 15:14:35 09/30/20 22 10/01/2022 COMPR EHENS ALIS METAB OLIC PANEL globulin 3.2 g/dL_ (calc ) 1.9-3. 7 normal Not Available [address], [address], 10/01/2022 15:14:35 09/30/20 22 10/01/2022 COMPR EHENS ALIS METAB OLIC PANEL albumin/glob ulin ratio 1.3 (calc ) 1.0-2. 5 normal Not Available [address], [address], 10/01/2022 15:14:35 09/30/20 22 10/01/2022 COMPR EHENS ALIS METAB OLIC PANEL bilirubin, total 0.4 mg/dL 0.2-1. 2 normal Not Available [address], [address], 10/01/2022 15:14:35 09/30/20 22 10/01/2022 COMPR EHENS ALIS METAB OLIC PANEL alkaline phosphatase 64 U/L 36-130 normal Not Available [facility] [employer] [address], [address], 10/01/2022 15:14:35 09/30/20 22 10/01/2022 COMPR EHENS ALIS METAB OLIC PANEL AST 9 U/L 10-40 low Not Available [facility] [address] [place], [address], 10/01/2022 15:14:35 09/30/20 22 10/01/2022 COMPR EHENS ALIS METAB OLIC PANEL ALT 12 U/L 9-46 normal Not Available [address], [address], 10/01/2022 15:14:35 09/30/20 22 10/01/2022 LIPID PANEL , STAND RADHA LDL-choleste rol 125 mg/dL _(lenard c) high Refer ence range : <100 Kacy able range <100 mg/dL for prima ry preve ntion ; <70 mg/dL for patie nts with CHD or diabe tic patie nts with > or = 2 CHD risk facto rs. LDL-C is now calcu lated using the Kati n-Hop kins calcu latvalerie n, which is a valid ated novel elizabeth odom acy than the Fried jose equat ion in the estim ation of LDL-C . Kati tavarez SS et al. TEQUILA. 2013; 310(1 9): 2061- 2068 (http ://ed ucati on.Faby haider Access [employer]. com/f aq/FA Q164) Not Available [facility] [address] [place] [address], [address], 10/01/2022 15:14:35 09/30/20 22 10/01/2022 LIPID PANEL , STAND RADHA cholesterol, total 208 mg/dL <200 high Not Available [facility] [address] [place] [address], [address], 10/01/2022 15:14:35 09/30/20 22 10/01/2022 LIPID PANEL , STAND RADHA HDL cholesterol 70 mg/dL > or = 40 normal Not Available [facility] [address] [address] [place], [address], 10/01/2022 15:14:35 09/30/20 22 10/01/2022 LIPID PANEL , STAND RADHA triglyceride s 42 mg/dL <150 normal Not Available [address] [address] [place], [address], 10/01/2022 15:14:35 09/30/20 22 10/01/2022 LIPID PANEL , STAND RADHA chol/HDLC ratio 3.0 (calc ) <5.0 normal Not Available [address] [address] [place], [address], 10/01/2022 15:14:35 09/30/20 22 10/01/2022 LIPID PANEL , STAND RADHA non HDL cholesterol 138 mg/dL _(lenard c) <130 high For patie nts with diabe crystal plus 1 major ASCVD risk facto r, treat ing to a non-H DL-C goal of <100 mg/dL (LDL- C of <70 mg/dL ) is consi dered a [place] penirali c optio n. Not Available [address] [address] [place], [address], 10/01/2022 15:14:35 02/12/20 23 02/13/2023 LIPID PANEL , STAND RADHA cholesterol, total 181 mg/dL <200 normal Not Available [address] [address] [place], [address], 02/13/2023 13:22:59 02/12/20 23 02/13/2023 LIPID PANEL , STAND RADHA HDL cholesterol 64 mg/dL > or = 50 normal Not Available [address] [address] [place], [address], 02/13/2023 13:22:59 02/12/20 23 02/13/2023 LIPID PANEL , STAND RADHA triglyceride s 45 mg/dL <150 normal Not Available [address] [address] [place], [address], 02/13/2023 13:22:59 02/12/20 23 02/13/2023 LIPID PANEL , STAND RADHA LDL-choleste rol 104 mg/dL _(lenard c) high Refer ence range : <100 Kacy able range <100 mg/dL for prima ry preve ntion ; <70 mg/dL for patie nts with CHD or diabe tic patie nts with > or = 2 CHD risk facto rs. LDL-C is now calcu lated using the Kati n-Hop kins calcu latio n, which is a valid ated novel metho d provi robby burks r accur acy than the Fried jose equat ion in the estim ation of LDL-C . Kati tavarez SS et al. TEQUILA. 2013; 310(1 9): 2061- 2068 (http ://ed ucati on.[employer]. com/f aq/FA Q164) Not Available [employer] [facility] [address] [address] [address], [place], [address], 02/13/2023 13:22:59 02/12/20 23 02/13/2023 LIPID PANEL , STAND RADHA chol/HDLC ratio 2.8 (calc ) <5.0 normal Not Available [employer] [facility] [address] [address], [place], [address], 02/13/2023 13:22:59 02/12/20 23 02/13/2023 LIPID PANEL , STAND RADHA non HDL cholesterol 117 mg/dL _(lenard c) <130 normal For patie nts with diabe crystal plus 1 major ASCVD risk facto r, treat ing to a non-H DL-C goal of <100 mg/dL (LDL- C of <70 mg/dL ) is consyovany rosa c optio n. Not Available [employer] [facility] [address] [address], [place], [address], 02/13/2023 13:22:59 02/12/20 23 02/13/2023 COMPR EHENS ALIS METAB OLIC PANEL glucose 152 mg/dL 65-99 high Fasti ng refer ence inter fransisco For someo ne witho ut known diabe crystal, a gluco se value >125 mg/dL indic ates that they may have diabe crystal and this shoul d be confi rmed with a follo w-up test. Not Available [employer] [address] [address] [place], [address], 02/13/2023 13:22:59 02/12/20 23 02/13/2023 COMPR EHENS ALIS METAB OLIC PANEL urea nitrogen (BUN) 9 mg/dL 7-25 normal Not Available [employer] [facility] [address], [address], 02/13/2023 13:22:59 02/12/20 23 02/13/2023 COMPR EHENS ALIS METAB OLIC PANEL creatinine 0.83 mg/dL 0.50-0 .96 normal Not Available [employer] [address] [address] [place], [address], 02/13/2023 13:22:59 02/12/20 23 02/13/2023 COMPR EHENS ALIS METAB OLIC PANEL eGFR 99 mL/mi n/1.7 3m2 > or = 60 normal The eGFR is based on the CKD-E PI 2020 equat ion. To calcu late the new eGFR from a previ ous Creat inine or Cysta tin C resul t, go to https :[email or web address] [email or web address] [email or web address] brian s/ kdoqi /gfr% 5Fcal culat or Not Available [employer] [facility] [address] [address] [place], [address], 02/13/2023 13:22:59 02/12/20 23 02/13/2023 COMPR EHENS ALIS METAB OLIC PANEL BUN/creatini ne ratio NOT APPLIC ABLE (calc ) 6-22 Not Available [employer] [address] [address] [place], [address], 02/13/2023 13:22:59 02/12/20 23 02/13/2023 COMPR EHENS ALIS METAB OLIC PANEL sodium 137 mmol/ L 135-14 6 normal Not Available [address], [address], 02/13/2023 13:22:59 02/12/20 23 02/13/2023 COMPR EHENS ALIS METAB OLIC PANEL potassium 4.4 mmol/ L 3.5-5. 3 normal Not Available [address], [address], 02/13/2023 13:22:59 02/12/20 23 02/13/2023 COMPR EHENS ALIS METAB OLIC PANEL chloride 103 mmol/ L 98-110 normal Not Available [address], [address], 02/13/2023 13:22:59 02/12/20 23 02/13/2023 COMPR EHENS ALIS METAB OLIC PANEL carbon dioxide 25 mmol/ L 20-32 normal Not Available [address], [address], 02/13/2023 13:22:59 02/12/20 23 02/13/2023 COMPR EHENS ALIS METAB OLIC PANEL calcium 8.9 mg/dL 8.6-10 .2 normal Not Available [address], [address], 02/13/2023 13:22:59 02/12/20 23 02/13/2023 COMPR EHENS ALIS METAB OLIC PANEL protein, total 7.0 g/dL 6.1-8. 1 normal Not Available [address], [address], 02/13/2023 13:22:59 02/12/20 23 02/13/2023 COMPR EHENS ALIS METAB OLIC PANEL albumin 4.2 g/dL 3.6-5. 1 normal Not Available [address], [place], [address], 02/13/2023 13:22:59 02/12/20 23 02/13/2023 COMPR EHENS ALIS METAB OLIC PANEL globulin 2.8 g/dL_ (calc ) 1.9-3. 7 normal Not Available [address], [address], 02/13/2023 13:22:59 02/12/20 23 02/13/2023 COMPR EHENS ALIS METAB OLIC PANEL albumin/glob ulin ratio 1.5 (calc ) 1.0-2. 5 normal Not Available [address], [address], 02/13/2023 13:22:59 02/12/20 23 02/13/2023 COMPR EHENS ALIS METAB OLIC PANEL bilirubin, total 0.3 mg/dL 0.2-1. 2 normal Not Available [address], [address], 02/13/2023 13:22:59 02/12/20 23 02/13/2023 COMPR EHENS ALIS METAB OLIC PANEL alkaline phosphatase 62 U/L 31-125 normal Not Available [address] [address] [place], [address], 02/13/2023 13:22:59 02/12/20 23 02/13/2023 COMPR EHENS ALIS METAB OLIC PANEL AST 10 U/L 10-30 normal Not Available [address] [address] [place], [address], 02/13/2023 13:22:59 02/12/20 23 02/13/2023 COMPR EHENS ALIS METAB OLIC PANEL ALT 13 U/L 6-29 normal Not Available [address] [place], [address], 02/13/2023 13:22:59 02/12/20 23 02/13/2023 ALBUM IN, RANDO M URINE W/CRE ATINI NE creatinine, random urine 205 mg/dL 20-275 normal Not Available [employer] [address] [address] [place], [address], 02/13/2023 13:23:00 02/12/20 23 02/13/2023 ALBUM IN, RANDO M URINE W/CRE ATINI NE albumin, urine 0.5 mg/dL see note: normal Refer ence Range : Refer ence Range Not estab lishe d Not Available [address] [address] [place], [address], 02/13/2023 13:23:00 02/12/2002/13/2023 ALBUM IN, RANDO M URINE W/CRE ATINI NE albumin/crea tinine ratio, random urine 2 mcg/m g_cre at <30 normal The ADA defin es abnor malit ies in album in excre tion as follo ws: Album inuri a Categ ory Resul t (mcg/ mg creat inine ) Kaylah l to Mildl y incre ased <30 Moder ately incre ased 30-29 9 Sever kasey incre ased > OR = 300 The ADA recom mends that at least two of three speci mens colle cted withi n a 3-6 month perio d be abnor mal befor e consi james g a patie nt to be withi n a diagn ostic categ ory. Not Available [address] [address] [place], [address], 02/13/2023 13:23:00 02/12/2002/13/2023 TSH+F REE T4 TSH 0.68 mIU/L normal Refer ence Range > or = 20 Years 0.40- 4.50 Pregn william Range s First trime ster 0.26- 2.66 Secon d trime ster 0.55- 2.73 Third trime ster 0.43- 2.91 Not Available [address] [address] [place], [address], 02/13/2023 13:23:01 02/12/20 23 02/13/2023 TSH+F REE T4 T4, free 1.4 NG/dL 0.8-1. 8 normal Not Available [address], [address], 02/13/2023 13:23:01 02/12/2002/13/2023 HEMOG LOBIN A1C hemoglobin A1C 7.2 %_of_ total _HGB <5.7 high For someo ne witho ut known diabe crystal, a hemog lobin A1c value of 6.5% or great er indic ates that they may have diabe crystal and this shoul d be confi rmed with a follo w-up test. For someo ne with known diabe crystal, a value <7% indic ates that their diabe crystal is well contr olled and a value great er than or equal to 7% indic ates subop timal contr ol. A1c targe ts shoul d be indiv idual ized based on durat ion of diabe crystal, age, comor bid condi tions , and other consi derat ions. Curre ntly, no conse nsus exist s regar ding use of hemog lobin A1c for diagn osis of diabe crystal for child jere. Not Available [employer] [address], [address], 02/13/2023 13:23:01 06/28/2006/29/2023 LIPID PANEL , STAND RADHA cholesterol, total 204 mg/dL <200 high Not Available [facility] [address] [address] [place], [address], 06/29/2023 08:37:39 06/28/2006/29/2023 LIPID PANEL , STAND RADHA HDL cholesterol 68 mg/dL > or = 50 normal Not Available [employer] [facility] [address] [address] [place], [address], 06/29/2023 08:37:39 06/28/2006/29/2023 LIPID PANEL , STAND RADHA triglyceride s 58 mg/dL <150 normal Not Available [facility] [address] [place], [address], 06/29/2023 08:37:39 06/28/20 23 06/29/2023 LIPID PANEL , STAND RADHA LDL-choleste rol 122 mg/dL _(lenard c) high Refer ence range : <100 Kacy able range <100 mg/dL for prima ry preve ntion ; <70 mg/dL for patie nts with CHD or diabe tic patie nts with > or = 2 CHD risk facto rs. LDL-C is now calcu lated using the Kati n-Hop kins calcu saturnino n, which is a valid ated novel metho d provi robby vitaliy r accur acy than the Fried jose equat ion in the estim ation of LDL-C . Kati tavarez SS et al. TEQUILA. 2013; 310(1 9): 2061- 2068 (http ://ed ucati on.[employer]. com/f aq/FA Q164) Not Available [employer] [facility] [address] [address], [place], [address], 06/29/2023 08:37:39 06/28/20 23 06/29/2023 LIPID PANEL , STAND RADHA chol/HDLC ratio 3.0 (calc ) <5.0 normal Not Available [employer] [facility] [address] [address], [place], [address], 06/29/2023 08:37:39 06/28/20 23 06/29/2023 LIPID PANEL , STAND RADHA non HDL cholesterol 136 mg/dL _(lenard c) <130 high For patie nts with diabe crystal plus 1 major ASCVD risk facto r, treat ing to a non-H DL-C goal of <100 mg/dL (LDL- C of <70 mg/dL ) is consi dered a thera peuti c optio n. Not Available [employer] [facility] [address] [place], [address], 06/29/2023 08:37:39 06/28/2006/29/2023 COMPR EHENS ALIS METAB OLIC PANEL glucose 129 mg/dL 65-99 high Fasti ng refer ence inter fransisco For someo ne witho ut known diabe crystal, a gluco se value >125 mg/dL indic ates that they may have diabe crystal and this shoul d be confi rmed with a follo w-up test. Not Available [facility] [address], [address], 06/29/2023 08:37:40 06/28/2006/29/2023 COMPR EHENS ALIS METAB OLIC PANEL urea nitrogen (BUN) 9 mg/dL 7-25 normal Not Available [address], [address], 06/29/2023 08:37:40 06/28/2006/29/2023 COMPR EHENS ALIS METAB OLIC PANEL creatinine 0.82 mg/dL 0.50-0 .96 normal Not Available [facility] [address], [address], 06/29/2023 08:37:40 06/28/2006/29/2023 COMPR EHENS ALIS METAB OLIC PANEL eGFR 100 mL/mi n/1.7 3m2 > or = 60 normal Not Available [address], [address], 06/29/2023 08:37:40 06/28/2006/29/2023 COMPR EHENS ALIS METAB OLIC PANEL BUN/creatini ne ratio SEE NOTE: (calc ) 6-22 Not Repor kvng: BUN and Creat inine are withi n refer ence range . Not Available [facility] [address], [address], 06/29/2023 08:37:40 06/28/20 23 06/29/2023 COMPR EHENS ALIS METAB OLIC PANEL sodium 137 mmol/ L 135-14 6 normal Not Available [facility] [address] [address] [address], [place], [address], 06/29/2023 08:37:40 06/28/2006/29/2023 COMPR EHENS ALIS METAB OLIC PANEL potassium 3.9 mmol/ L 3.5-5. 3 normal Not Available [address], [address], 06/29/2023 08:37:40 06/28/2006/29/2023 COMPR EHENS ALIS METAB OLIC PANEL chloride 102 mmol/ L 98-110 normal Not Available [address], [address], 06/29/2023 08:37:40 06/28/2006/29/2023 COMPR EHENS ALIS METAB OLIC PANEL carbon dioxide 28 mmol/ L 20-32 normal Not Available [address], [address], 06/29/2023 08:37:40 06/28/2006/29/2023 COMPR EHENS ALIS METAB OLIC PANEL calcium 9.9 mg/dL 8.6-10 .2 normal Not Available [address], [address], 06/29/2023 08:37:40 06/28/2006/29/2023 COMPR EHENS ALIS METAB OLIC PANEL protein, total 7.5 g/dL 6.1-8. 1 normal Not Available [address], [address], 06/29/2023 08:37:40 06/28/20 23 06/29/2023 COMPR EHENS ALIS METAB OLIC PANEL albumin 4.3 g/dL 3.6-5. 1 normal Not Available [address], [address], 06/29/2023 08:37:40 06/28/20 23 06/29/2023 COMPR EHENS ALIS METAB OLIC PANEL globulin 3.2 g/dL_ (calc ) 1.9-3. 7 normal Not Available [address], [address], 06/29/2023 08:37:40 06/28/20 23 06/29/2023 COMPR EHENS ALIS METAB OLIC PANEL albumin/glob ulin ratio 1.3 (calc ) 1.0-2. 5 normal Not Available [address], [address], 06/29/2023 08:37:40 06/28/20 23 06/29/2023 COMPR EHENS ALIS METAB OLIC PANEL bilirubin, total 0.3 mg/dL 0.2-1. 2 normal Not Available [address], [address], 06/29/2023 08:37:40 06/28/20 23 06/29/2023 COMPR EHENS ALIS METAB OLIC PANEL alkaline phosphatase 59 U/L 31-125 normal Not Available [address], [address], 06/29/2023 08:37:40 06/28/20 23 06/29/2023 COMPR EHENS ALIS METAB OLIC PANEL AST 10 U/L 10-30 normal Not Available [address], [address], 06/29/2023 08:37:40 06/28/20 23 06/29/2023 COMPR EHENS ALIS METAB OLIC PANEL ALT 13 U/L 6-29 normal Not Available [address], [address], 06/29/2023 08:37:40 06/28/20 23 06/29/2023 TSH+F REE T4 TSH 0.80 mIU/L normal Refer ence Range > or = 20 Years 0.40- 4.50 Pregn william Range s First trime ster 0.26- 2.66 Secon d trime ster 0.55- 2.73 Third trime ster 0.43- 2.91 Not Available [employer] [facility] [address] [place], [address], 06/29/2023 08:37:41 06/28/2006/29/2023 TSH+F REE T4 T4, free 1.3 NG/dL 0.8-1. 8 normal Not Available [employer] [facility] [address] [address], [place], [address], 06/29/2023 08:37:41 06/28/2006/29/2023 HEMOG LOBIN A1C hemoglobin A1C 7.6 %_of_ total _HGB <5.7 high For someo ne witho ut known diabe crystal, a hemog lobin A1c value of 6.5% or great er indic ates that they may have diabe crystal and this shoul d be confi rmed with a follo w-up test. For someo ne with known diabe crystal, a value <7% indic ates that their diabe crystal is well contr olled and a value great er than or equal to 7% indic ates subop timal contr ol. A1c targe ts shoul d be indiv idual ized based on durat ion of diabe crystal, age, comor bid condi tions , and other consi derat ions. Curre ntly, no conse nsus exist daniel bustamante use of hemog lobin A1c for diagn osis of diabe crystal for child jere. Not Available [facility] [address] [place], [address], 06/29/2023 08:37:42 Result Notes None recorded. Problems Name Problem SNOMED Code Status Onset Date Resolution Date Notes Provider Name and Address Organization Details Recorded Time Uncontrolled type 1 diabetes mellitus [id number] Active 2022 Flora perez [place] - [facility] [employer] [facility] 09:36:02 Problem Notes None recorded. Procedures Surgical History Date Name Laterality Status Provider Name and Address Organization Details Recorded Time extraction of wisdom tooth completed Not Available [facility] 12/29/2022 23:10:48 Imaging Results None recorded. Procedure Notes None recorded. Medical Equipment None Reported. Allergies No known drug allergies Medications Name Sig Start Date Stop Date Status Note LastModified by Organization Details LastModified Time Glucagon Emergency Kit 1 mg solution for injection Take 1 mg as needed by injection route as needed for 1 day. 07/12 completed Not Available Not Available Not Available Humalog U-100 Insulin 100 unit/mL subcutaneou s solution INJECT UP TO 100 UNITS UNDER THE SKIN INTO PUMP DAILY active Not Available Not Available No t Available cephalexin 500 mg capsule TAKE 1 CAPSULE BY MOUTH EVERY 12 HOURS FOR 5 DAYS 11/23 completed Not Available Not Available Not Available Novolog U-100 Insulin aspart 100 unit/mL subcutaneou s solution active Not Available Not Available N ot Available 11/19 (28) 1 mg-20 mcg (21)/75 mg (7) tablet Take 1 tablet every day by oral route in the morning for 90 days. active Not Available Not Available No t Available Dexcom G6 Sensor device active Not Available Not Available Not Available Dexcom G6 Special Education Resource Room Teacher active Not Available Not Available Not Available Dexcom G6 Transmitter device active Not Available Not Available Not Available Gvoke HypoPen 2-Pack 1 mg/0.2 mL subcutaneou s auto-inject or Inject 1 mg as needed by subcutane ous route as needed for 1 day. active Not Available Not Available No t Available Vitals Date Recorded Body mass index (BMI) Body height Oxygen saturation Oxygen saturation in Arterial blood by Pulse oximetry Heart rate Body temperature Body weight Systolic blood pressure Diastolic blood pressure Provider Name and Address Organization Details Last Updated DateTime 3 22 kg/m2 175.26 cm 97 % 97 % 77 /min 97.8 [degF] 16537.2 6 g 100 mm[Hg] 70 mm[Hg] Not Available [facility] 3 23:11:02 Date Recorded Body mass index (BMI) Body height Oxygen saturation Oxygen saturation in Arterial blood by Pulse oximetry Heart rate Body temperature Body weight Systolic blood pressure Diastolic blood pressure Provider Name and Address Organization Details Last Updated DateTime 2 20.7 kg/m2 175.26 cm 95 % 95 % 69 /min 97.7 [degF] 34419.9 3 g 105 mm[Hg] 75 mm[Hg] Not Available [facility] 3 23:11:02 Date Recorded Body height Body mass index (BMI) Body weight Body temperature Respiratory rate Heart rate Systolic blood pressure Diastolic blood pressure Provider Name and Address Organization Details Last Updated DateTime 3 175.26 cm 21.6 kg/m2 02897.9 2 g 98 [degF] 16 /min 70 /min 106 mm[Hg] 62 mm[Hg] Samara Reveles RN [place] [facility] 3 16:56:00 Date Recorded Body mass index (BMI) Body height Oxygen saturation Oxygen saturation in Arterial blood by Pulse oximetry Heart rate Body temperature Body weight Systolic blood pressure Diastolic blood pressure Provider Name and Address Organization Details Last Updated DateTime 1 20.1 kg/m2 175.26 cm 99 % 99 % 89 /min 98.6 [degF] 17299.5 6 g 110 mm[Hg] 80 mm[Hg] Not Available [facility] 3 23:11:01 Social History Question Answer Notes LastModified by Bin[employer] ion Details LastModified Time Tobacco Smoking Status Never Smoker Not Available [facility] 12/29/2022 23:10:20 What Is Your Level Of Caffeine Consumption? Heavy [id number] Information not available 12/29/2022 In The 14 Days Before Symptom Onset, Have You Had Close Contact With A Laboratory-confirm ed COVID-19 While That Case Was Ill? No [id number] Information not available 12/29/2022 In The 14 Days Before Symptom Onset, Have You Had Close Contact With A Person Who Is Under Investigation For COVID-19 While That Person Was Ill? No [id number] Information not available 12/29/2022 What Is The Highest Grade Or Level Of School You Have Completed Or The Highest Degree You Have Received? [id number] Information not available 12/29/2022 What Is Your Relationship Status? Single [id number] Information not available 12/29/2022 Has Tobacco Cessation Counseling Been Provided? No [id number] Information not available 12/29/2022 Have You Recently Traveled Abroad? No [id number] Information not available 12/29/2022 Sex: Female Functional Status Question Answer Note LastModified by Organizat ion Details LastModified Time Do you use any illicit or recreational drugs? No [id number] Information not available 12/29/2022 Do you or have you ever used any other forms of tobacco or nicotine? No [id number] Information not available 12/29/2022 What is your level of alcohol consumption? 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 Family History Relationship Description Onset Age of this Age Resolved Age Notes LastModified by Organization Details LastModified Time Maternal Grandmother Diabetes mellitus [id number] Not available 12/29/2022 23:10:49 Paternal Grandmother Diabetes mellitus [id number] Not available 12/29/2022 23:10:49 Medical History Condition Response DIABETES, TYPE Y HEADACHES/MIGRAINES Y Gynecological HistoryNo gynecological history recorded. Obstetrics History GPAL:G 0 P 0 0 0 0 Past Encounters Encounter ID Performer Location Encounter Start Date Encounter Closed Date Diagnosis/Indication Diagnosis SNOMED-CT Code Diagnosis ICD10 Code Diagnosis Note [id number] Oneyda Hernandez MD Daniel_April [facility] [place] [address] [place] [address] 07/21/2021 00:00:00 07/21/2021 18:36:14 [id number] MD SADIE Andino_April [facility] [place] [address] [place] [address] 01/01/2022 00:00:00 01/01/2022 09:29:24 [id number] Oneyda Hernandez MD PANFILO [facility] [place] [address] [place] [address] 11/23/2022 00:00:00 11/23/2022 13:25:14 [id number] MD SADIE Andino_HAJA [facility] [place] [address] [place] [address] 07/12/2023 16:46:39 07/12/2023 17:31:57 Uncontrolled type 1 diabetes mellitus [id number] E10.65 A1C of 7.6% Continue settings as follows:12 am to 6 am at 1.4 u/hr6 am to 12 am at 1.5 u/hr1:8 carb ratio with correction of 50 mg/dL Discussed protein shakes and increasing protein levels during exercise and to take additional shakes if her protein intake under 120 grams for the day to help balance sugars. She is aware on extended bolus and continue on control IQ. Patient using her dexcom regularly to communicat e with her control IQ. Refer to endocrinol ogy per patient request. Uses oral contraception [id number] Z30.41 Continue on blisovi- refill per patient request. Spent up to 25 minutes preparing to see the patient (eg, review of tests), obtaining and/or reviewing separately obtained history, performing a medically appropriat e examinatio n and evaluation , counseling and educating the patient, ordering medication s, tests, along with documentin g clinical informatio n in the electronic health record, independen tly interpreti ng results and communicat ing results to the patient. Patient can be followed by PCP - she/he is aware of my resignatio n and last day of August 12. If needed his/her PCP can refer patient to another endocrinol ogist in the area. All questions /concerns answered and refills necessary at visit today. Health Concerns Section Related Observation LastModified by Organization Detai ls LastModified Time None Recorded Concern Status LastModified by Organization Details LastModified Time None Recorded Advance Directives Directive None Recorded Payers Insurance Date Sequence Insurance Name Policy Number Policy Bliss Covered Member ID Bliss Member ID Guarantor Name 07/09/2023 1 [place] [id number] Araceli Nicole [id number] Araceli Nicole Notes Date Note Type Note Provider Name and Address Organization Details Recorded Time 07/12/2023 text/html 27 yo female com es in for follow up in management of overall uncontrolled type I DM (A1C of 7.6%) and refill for OCP therapy. last seen in October at that time we had patientReadjust basal settings as follows:12 am to 6 am at 1.4 u/hr6 am to 12 am at 1.5 u/hr1:8 carb ratio with correction of 50 mg/dL She has the dexcom G6 sensor - if her sugars are over 200 mg/dL it will dose-she is using control IQ with her tandem. She feels she ate too many sweets and carbs over the summer. She forgot her pump /PDM today and if she exercises before hand will drop low overnight. Otherwise has no lows. She is otherwise doing well, cycles regular on blisovi. labs from 06/28/23:a1c 7.6%TSH of 0.8 uIU/mlFT4 of 1.3 ng/dLglucose 129 mg/dLCr normalLFT atyovu292/58/68/122mi croalbumin 2 ug/mg Oneyda Hernandez MD [address] [facility], [facility] [address], [place], [address], [place] [employer] 07/12/2023 17:30:51 OBGyn Episode No OBEpisode recorded.
[2025-05-01 16:11] LABS: Hematocrit 31.7 % (37.0-47.0); Hemoglobin 11.1 g/dL (12.0-15.0); Immature Granulocyte Percent A 0.9 % (0-0.5); Lymphocytes Absolute Auto 1.41 K/mm3 (0.9-3.2); Mean Corpuscular HGB Conc 35.0 g/dl (32-36); Mean Corpuscular Hemoglobin 34.2 pg (26-34); Mean Corpuscular Volume 97.5 fl (80-100); Nucleated Red Blood Cells Absolute Auto 0.000 K/mm3 (0.0-0.012); Nucleated Red Blood Cells Perc 0.0 % (0.0-0.2); Platelet Count Result 243 k/mm3 (150-375); Red Blood Count 3.25 M/mm3 (4.2-5.4); White Blood Count 10.6 K/mm3 (4.5-10.0)
[2025-05-01 16:16] VITALS: BP 125/69; PULSE 94
[2025-05-01 16:20] LABS: Total Protein Urine Random 14 mg/dL; Ur Ttl Prot Creatinine Ratio 0.10 mg/mg (0-0.20)
[2025-05-01 16:22] LABS: Add Urine Microscopic? YES; Alanine Aminotransferase 29 U/L (6-35); Albumin Level 3.4 g/dL (3.5-5.1); Alkaline Phosphatase 93 U/L (38-126); Anion Gap 8 mmol/L (4-12); Appearance Urine Clear (Clear); Aspartate Amino Transferase 24 U/L (14-36); Bilirubin,Total 0.2 mg/dL (0.2-1.3); Blood Urea Nitrogen 9 mg/dL (7-17); Calcium 8.7 mg/dL (8.4-10.2); Carbon Dioxide 19 mmol/L (22-30); Chloride 105 mmol/L (98-107); Estimated Glomerular Filt Rate > 60; Glucose 188 mg/dL (65-110); Glucose Urine UA Trace mg/dL (Negative); Leukocyte Esterase Ur Negative LEU/UL (Negative); Need Manual Microscopic Reviewed; Nitrate Urine Negative (Negative); Non Pathogenic Casts 0-2; Potassium 3.8 mmol/L (3.4-5.0); Sodium 132 mmol/L (137-145); Specific Grav Ur 1.026 (1.001-1.035); Total Protein 6.8 g/dL (6.3-8.2); Uric Acid 2.7 mg/dL (2.5-7.5)
--- NOTE | 2025-05-01 16:29 | PC.NURSE ---
1625- Spoke with Dr. Strong regarding labs and BP's. Orders to discharge to home.
[2025-05-01 16:30] VITALS: BP 125/69; PULSE 96
== END 2025-05-01 16:44 | disposition home or self-care (01) ==
LOC: ANHOBOP 15:37 → ANHOBPP 15:37
PROVIDERS: Visit Provider Obstetrics & Gynecology
DX: O13.9 Gestational [pregnancy-induced] hypertension without significant proteinuria, unspecified trimester (principal); Z3A.00 Weeks of gestation of pregnancy not specified
CPT/HCPCS: 36415; 59025; 80053; 81001; 82570; 84156; 84550; 85025; 99199

== ENCOUNTER 2025-06-21 13:24 | Outpatient (RCR) | payer BC, SELFPAY ==
[2025-05-08 18:28] VITALS: BP 137/74; PULSE 92
[2025-06-18 15:05] VITALS: BP 122/72; PULSE 84
--- NOTE | 2025-06-18 16:55 | PC.NURSE ---
Informed Dr. Strong of BPP and VIVEK results. February D/C home.
--- NOTE | ~2025-06-21 | US_ITS ---
EXAMINATION: US OB BPP wo non-stress DATE: 06/21/2025 15:23 CDT INDICATION: Diabetes. TECHNIQUE: Real-time transabdominal obstetric ultrasound. FINDINGS: Ultrasound dated 06/18/2025 There is a single living fetus in breech presentation. The placenta is anterior without placenta previa. Normal VIVEK measures 14.2 cm. cardiac activity and movement is noted with a heart rate of 144 beats per minute. Biophysical profile: breathin of 2 movement: 2 of 2 tone: 2 of 2 Amniotic flud pocket: 2 of 2 Total score: 8 of 8 IMPRESSION: 1. Single living intrauterine in breech presentation. 2: Total biophysical profile score of 8/8. Reviewed, dictated and finalized at location O.
--- NOTE | ~2025-06-21 | US_ITS ---
EXAM: US OB BPP wo non-stress - 06/18/2025 15:00 CDT History: 29 years old Female with BPP amd VIVEK/Type I diabetic Comparison: None available. Technique Real time transabdominal obstetric sonographic imaging was performed. Findings A single live intrauterine gestation is identified. Lie: longitudinal Presentation: breech Placental position: Anterior heart rate: 139 beats per minute VIVEK: 8.36 cm, which is between the 7.3 which corresponds to 5 th and 23.9 which corresponds to 95 th percentiles. Biophysical profile: breathing movement: 2 Gross body movement: 2 tone: 2 Qualitative AFV: 2 Total BPP score: 8 of 8. Impression Total biophysical profile score is 8 out of 8. Reviewed, dictated and finalized at location A. Impression Total biophysical profile score is 8 out of 8.
[2025-06-21 13:31] VITALS: BP 128/79; PULSE 99
[2025-06-21 13:46] VITALS: BP 121/70; PULSE 79
[2025-06-21 14:01] VITALS: BP 122/72; PULSE 87
[2025-06-21 14:16] VITALS: BP 127/71; PULSE 95
[2025-06-21 14:20] VITALS: BP 128/79; PULSE 86
== END 2025-08-06 23:59 | disposition home or self-care (01) ==
LOC: ANHOBOP 13:24
PROVIDERS: Visit Provider Obstetrics & Gynecology
DX: O36.0130 Maternal care for anti-D [Rh] antibodies, third trimester, not applicable or unspecified (principal); O24.419 Gestational diabetes mellitus in pregnancy, unspecified control; Z3A.32 32 weeks gestation of pregnancy; Z3A.38 38 weeks gestation of pregnancy
CPT/HCPCS: 59025; 76819

== ENCOUNTER 2025-06-21 15:38 | Outpatient (CLI) | payer BC, SELFPAY ==
--- OUTSIDE RECORDS SUMMARY | 2025-06-21 15:41 | XMS_ITS | Clinical Summary ---
Author Organization [facility] Address [facility] [place] [address] Care Team Providers Care Life Guard Name Role Phone Lonnie Pond MD Primary Care Provider [phone] Allergies No known active allergies Medications Glucose Blood (FREESTYLE LITE) test strip FreeStyle Lite Test In Vitro StripTEST [id number] Active Active OMNIPOD 5 PACK MiscIndications:Un controlled type 1 diabetes mellitus with hyperglycemia (CMS/HCC HHS/HCC) CHANGE POD EVERY 72 HOURS 30 each 3 9 Active DEXCOM G6 SUPERVISOR ROLLER PRINTING DeviceIndications: Uncontrolled type 1 diabetes mellitus with [...] Type 1 diabetes mellitus wit hout complication ([facility]) 03/30/2017 Resolved Problems Problem Noted Date Diagnosed Date Resolved Date Insulin pump titration 06/07/201807/11 Immunizations Immunization Administration Dates Next Due Dtap (Generic) 03/03/2001,02/01/1997 [...] 10:45 AM CDT Height 170.2 cm (5' 7) 07/01/2020 10:45 AM CDT Body Mass Index 21.71 07/01/2020 10:45 AM CDT Plan of Treatment Health Maintenance Due Date Last Done Comments Cervical Cancer Screening Pap Smear (Age 21 to 29) Every 3 Years 1995 Cervical Cancer Screening 1995 Kidney Health Evaluation 1995 Annual Physical 1998 Diabetes: Retinopathy Eye Exam 2013 Hepatitis C 2013 Pneumococcal Vaccine: Pediatrics (0 to 5 Years) and At-Risk Patients (6 to 49 Years) (1 of 2 - PCV) 2014 DTaP, Tdap and Td Vaccines (4 - Td or Tdap) 05/13/2020 05/13/2010, 03/03/2001, 02/01/1997, Additional history exists Hemoglobin A1C 10/03/2020 04/03/2020, 12/2018, 06/18/2019, Additional history exists Lipid Panel 04/03/2021 04/03/2020, 05/31, 10/19/2017 COVID-19 Vaccine ( season) 2024 Hepatitis B Vaccines Completed 03/02/1996, 1995, 1995 [...] CDT Type 1 diabetes mellitus without complication HEMOGLOBIN, GLYCOSYLATED Routine 04/03/2020 1:51 PM CDT Type 1 diabetes mellitus without complication from Last 3 Months or Most Recently Relevant to Health Maintenance Results * (ABNORMAL) LIPID PANEL (04/03/2020 2:14 PM CDT) CHOLESTEROL 179 <200 MG/DL 04/03/2020 3:28 PM CDT [facility] TRIGLYCERIDES 56 <150 MG/DL 04/03/2020 3:28 PM CDT [facility] HDL 65 >40.0 MG/DL 04/03/2020 3:28 PM CDT [facility] LDL (CALCULATED) 103(H) <100 MG/DL 04/03/2020 3:28 PM CDT [facility] NON HDL CHOLESTEROL 114 <130 MG/DL 04/03/2020 3:28 PM CDT [facility] CHOL/HDL RATIO 2.8 0.0 - 4.5 04/03/2020 3:28 PM CDT [facility] VLDL CALCULATION 11 5 - 55 MG/DL 04/03/2020 3:28 PM CDT [facility] LIPID INTERPRETATION 04/03/2020 3:28 PM CDT [facility] Comment: NIH CONCENSUS REPORT RECOMMENDATIONS: ADULT CHILD LOW RISK: CHOLESTEROL <200 <170 TRIGLYCERIDE <150 --- HDL >=60 --- LDL <100 <110 BORDERLINE: CHOLESTEROL 200-239 170-199 TRIGLYCERIDE 150-199 --- HDL 40-59 --- LDL 100-159 110-129 HIGH RISK: CHOLESTEROL >=240 >=200 TRIGLYCERIDE >=200 --- HDL <40 --- LDL >=160 >=130 04/03/2020 2:14 PM CDT us Naveen Bal MD LABORATORY Final Result [facility] [address] [place] [address], [place] [phone] * HEMOGLOBIN, GLYCOSYLATED (04/03/2020 1:51 PM CDT) HGB A1C 8.[address] [facility]), [place] 04/03/2020 1:51 PM CDT Naveen Bal MD LABORATORY Final Result [facility]), [place] [address] [place] [address], from Last 3 Months or Most Recently Relevant to Health Maintenance Care Teams Life Guard Relationship Specialty Start Date End Date Lonnie Pond MD [address] [place] [address] PCP - General INTERNAL MEDICINE 11/10/18
--- OUTSIDE RECORDS SUMMARY | 2025-06-21 15:41 | XMS_ITS | Clinical Summary ---
Author Organization [facility] Address [address] [facility] [place] [address] Care Team Providers Care Tunneller Name Role Phone Unavailable Primary Care Provider Unavailabl e Source Comments [facility],non-owned Affiliates and Associated Physician Practices is amultiple site organization consisting of ambulatory clinics and hospital sitesin [place], [place], [place] and [place]. This disclosure is being madepursuant to the Care Everywhere program and may not contain all information available regarding this patient. Last updated 18.[facility] Need Fixed Allergies No known active allergies Social History Tobacco Use Types Packs/Day Years Used Date Smoking Tobacco: Never Assessed Estimated Date of Delivery Comme nts Yes 07/02/2025 Based on last me nstrual period of 09/25/2024 Sex and Gender Information Value Date Recorded Sex Assigned at Not on file Legal Sex Female 11:15 AM SOCIAL WORK SUPERVISOR Gender Identity Not on file Sexual Orientation Not on file Plan of Treatment Health Maintenance Due Date Last Done Comments HIV SCREENING 2010 HEPATITIS C SCREENING 09/09/2013 DTAP/TDAP/TD VACCINES (1 - Tdap) 2014 HEPATITIS B VACCINE (1 of 3 - 19+ 3-dose series) 2014 PAP SMEAR 2016 HPV VACCINE (1 - 3-dose SCDM series) 2022 COVID-19 VACCINE (3 - 2023-2 5 season) 2024 10/01/2021, 05/28/2021 DEPRESSION SCREENING 10/31/2024 OB-ONE HOUR GLUCOSE 03/26/2025 OB-TDAP CURRENT 04/02/2025 05/13/2010 OB-RHOGAM INJECTION 04/09/2025 OB-GROUP B STREP SCREEN 05/28/2025 INFLUENZA VACCINE (#1) 2025 5, 11/22/2012 ZOSTER VACCINE (1 of 2) 2045 [...]
--- OUTSIDE RECORDS SUMMARY | 2025-06-21 15:41 | XMS_ITS | Clinical Summary ---
Author Organization [facility] Address [address] [place] [address] Phone Care Team Providers Care Wildland Fire Fighter Name Role Phone Unavailable Primary Care Provider Unavailabl e Allergies No known active allergies Medications glucagon (Gvoke HypoPen 1-Pack) 1 mg/0.2 mL Auto-Injector Inject 1 mg by subcutaneous injection 1 time daily as needed for Other (See Comment) (severe hypoglycemia). Active Insulin Syringe-Needl e U-100 0.5 mL 31 gauge x 5/16 SyringeIndica tions:Pre-exi sting type 1 diabetes mellitus during , antepartum Use to inject insulin as directed 100 Each 2 12/11/19 25 Active insulin glargine (LANTUS) 100 unit/mL vialIndicatio ns:Pre-existi ng type 1 diabetes mellitus during , antepartum USE ONLY IF INSULIN PUMP FAILS. Inject 10 units SQ qHS as directed if pump fails 10 mL 12/11/19 25 Active aspirin (ECOTRIN EC) 81 mg Tablet, Delayed Release (E.C.) Take 162 mg by mouth daily. Active clindamycin HCL (CLEOCIN) 300 mg Capsule Take 450 mg by mouth 4 times daily. Has 5 more days Active cephALEXin (KEFLEX) 500 mg capsule Take 500 mg by mouth every 6 hours. Has 5 more days left Active vits15/iron/f olic/dss ( VIT 34-UVKS-AFRCP -DSS ORAL) Take by mouth. Acti ve Dexcom G7 Sensor DeviceIndicat ions:Pre-exis ting type 1 diabetes mellitus during , antepartum Inject 1 Each by subcutaneous injection every 10 days. 3 Each 3 07/30/20 25 Active insulin lispro (HumaLOG KwikPen Insulin) 200 unit/mL pen syringeIndica tions:Pre-exi sting type 1 diabetes affecting , antepartum Inject up to 200U SQ qday 30 mL 1 05/31/20 25 Active Blood-Glucose Sensor (Dexcom G7 Sensor) Device Inject 1 Each by subcutaneous injection every 10 days. 06/04/20 24 025 Discontinued(R eorder) insulin lispro (HumaLOG KwikPen Insulin) 200 unit/mL pen syringeIndica tions:Pre-exi sting type 1 diabetes affecting , antepartum Inject up to 150U SQ qday 24 mL 6 01/11/20 25 025 Discontinued Active Problems Problem Noted Date Diagnosed Date Pre-existing type 1 diabetes affecting , antepartum 01/02/2025 Type 1 diabetes mellitus 06/11/2009 Estimated Date of Delivery Comme nts Yes 07/02/2025 Date entered levon or to episode creation Resolved Problems Problem Noted Date Diagnosed Date Resolved Date 14 weeks gestation of 01/02/2025 06/13/2025 Encounters Date Type Department Care Team Description 06/18/2025 Chart Note [facility] Maternal Medicine [address] [place] [phone] Mae Kline MD Diabetes 06/14/2025 3:41 PM CDT - 06/14/2025 11:59 PM CDT Hospital Encounter [facility] Maternal and Ground [place] [address] [place] [address] [place] [address] Nba Dudley MD Discharge Disposition: Home or Self Care 06/13/2025 9:45 AM CDT Video Visit [facility] Maternal and Medicine - Medical [place] [address] [place] [address] Estefania Alva NP complicated by pre-existing type 1 diabetes in third trimester (Primary Dx); 37 weeks gestation of 06/13/2025 Chart Note [facility] Maternal and Medicine - Medical [place] [address] [place] [address] Fela Miller RN Diabetes 06/11/2025 2:54 PM CDT - 06/11/2025 11:59 PM CDT Hospital Encounter [facility] and Ground [facility] [address] [place] [address] [address] [place] [phone] Nba Dudley MD Discharge Disposition: Home or Self Care 06/11/2025 2:45 PM CDT - 06/11/2025 11:59 PM CDT Hospital Encounter [facility] M[facility] and Ground [facility] [address] [address] [place] [address] Nba Dudley MD Discharge Disposition: Home or Self Care 06/07/2025 2:36 PM CDT - 06/07/2025 11:59 PM CDT Hospital Encounter [facility] and Ground [facility] [address] [place] [address] Nba Dudley MD Discharge Disposition: Home or Self Care 06/06/2025 Chart Note [facility] Maternal Medicine [address] [place] [address] Fela Rivera MD Diabetes 06/04/2025 2:33 PM CDT - 06/04/2025 11:59 PM CDT Hospital Encounter [facility] and Ground [facility] [address] [place] [address] Nba Dudley MD Discharge Disposition: Home or Self Care 05/31/2025 2:42 PM CDT - 05/31/2025 11:59 PM CDT Hospital Encounter [facility] and Ground [facility] [address] [place] [address] Pretty Fishman MD Discharge Disposition: Home or Self Care 05/31/2025 Telephone [facility] Maternal and Medicine - Medical [place] [address] [place] [address] Mae Kline MD Diabetes 05/29/2025 Chart Note [facility] Maternal Medicine [address] [place] [address] Estefania Alva NP Diabetes 05/28/2025 2:33 PM CDT - 05/28/2025 11:59 PM CDT Hospital Encounter [facility] Maternal and Ground Floor [address] [place] [phone] Pretty Fishman MD Discharge Disposition: Home or Self Care 05/24/2025 2:51 PM CDT - 05/24/2025 11:59 PM CDT Hospital Encounter [facility] Maternal and Ground Floor [address] [place] [phone] Pretty Fishman MD Discharge Disposition: Home or Self Care 05/23/2025 9:00 AM CDT Video Visit [facility] Maternal and Medicine - Medical [place] [address] [place] [phone] Estefania Alva NP complicated by pre-existing type 1 diabetes in third trimester (Primary Dx); 34 weeks gestation of 05/23/2025 Chart Note [facility] Maternal and Medicine - Medical [place] [address] [place] [address] Estefania Alva NP Diabetes 05/21/2025 2:41 PM CDT - 05/21/2025 11:59 PM CDT Hospital Encounter [facility] Maternal and Ground Floor [address] [place] [address] Pretty Fishman MD Discharge Disposition: Home or Self Care 05/17/2025 2:36 PM CDT - 05/17/2025 11:59 PM CDT Hospital Encounter [facility] M[facility] and Ground [facility] [address] [place] [address] Pretty Fishman MD Discharge Disposition: Home or Self Care 05/15/2025 External Device Data STL ABSTRACTION Provider, Abstract 05/14/2025 2:56 PM CDT - 05/14/2025 11:59 PM CDT Hospital Encounter [facility] Maternal and Ground Floor [address] [place] [address] Pretty Fishman MD Discharge Disposition: Home or Self Care 05/14/2025 2:56 PM CDT - 05/14/2025 11:59 PM CDT Hospital Encounter [facility] Maternal and Ground Floor [address] [place] [address] Pretty Fishman MD Discharge Disposition: Home or Self Care 05/14/2025 External Device Data STL ABSTRACTION Provider, Abstract 05/10/2025 3:26 PM CDT - 05/10/2025 11:59 PM CDT Hospital Encounter [facility] Maternal and Ground Floor [address] [place] [address] Pretty Fishman MD Discharge Disposition: Home or Self Care 05/09/2025 Chart Note [facility] Maternal and Medicine - Medical [place] [address] [facility] [place] [address] Estefania Alva NP Diabetes 05/07/2025 3:15 PM CDT - 05/07/2025 11:59 PM CDT Hospital Encounter [facility] Maternal and Ground Floor [address] [place] [address] Pretty Fishman MD Discharge Disposition: Home or Self Care 04/30/2025 External Device Data STL ABSTRACTION Provider, Abstract 04/25/2025 9:00 AM CDT Video Visit [facility] Maternal and Medicine - Medical [place] [address] [place] [address] Estefania Alva NP complicated by pre-existing type 1 diabetes in third trimester (Primary Dx); 30 weeks gestation of 04/25/2025 Chart Note [facility] Maternal and Medicine - Medical [place] [address] [place] [phone] Estefania Alva NP Diabetes 04/18/2025 3:35 PM CDT - 04/18/2025 11:59 PM CDT Hospital Encounter [facility] Maternal and Ground Floor [address] [place] [address] Mae Kline MD Discharge Disposition: Home or Self Care 04/17/2025 Chart Note [facility] Maternal Medicine [address] [place] [phone] Camryn Perla CNM Diabetes 04/16/2025 External Device Data STL ABSTRACTION Provider, Abstract 03/28/2025 11:15 AM CDT Video Visit [facility] Maternal and Medicine - Medical [place] [address] [place] [phone] Estefania Alva NP complicated by pre-existing type 1 diabetes in second trimester (Primary Dx); 26 weeks gestation of 03/28/2025 Chart Note [facility] Maternal and Medicine - Medical [place] [address] [place] [address] Estefania Alva NP Diabetes 03/21/2025 1:08 PM CDT - 03/21/2025 11:59 PM CDT Hospital Encounter [facility] Maternal and Ground Floor [address] [place] [address] Mae Kline MD Discharge Disposition: Home or Self Care 03/21/2025 12:45 PM CDT - 03/21/2025 11:59 PM CDT Hospital Encounter [facility] Maternal and Ground Floor [address] [place] [address] Mae Kline MD Discharge Disposition: Home or Self Care from Last 3 Months Social History Tobacco Use Types Packs/Day Years Used Date Smoking Tobacco: Never Assessed Estimated Date of Delivery Comme nts Yes 07/02/2025 Date entered levon or to episode creation Sex and Gender Information Value Date Recorded Sex Assigned at Not on file 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 Gender Identity Not on file Sexual Orientation Not on file Last Filed Vital Signs Vital Sign Reading Time Taken Comments Blood Pressure - - Pulse - - Temperature - - Respiratory Rate - - Oxygen Saturation - - Inhaled Oxygen Concentration - - Weight 71.7 kg (158 lb) 01/02/2025 1:55 PM WEIGH TANK OPERATOR Height 170.2 cm (5' 7) 01/02/2025 1:55 PM WEIGH TANK OPERATOR Body Mass Index 24.75 01/02/2025 1:55 PM WEIGH TANK OPERATOR Plan of Treatment Health Maintenance Due Date [...] Priority Date/Time Associated Diagnosis Comments US OB LIMITED + NST Routine 06/14/2025 4 :29 PM CDT Type 1 diabetes mellitus (CMS/HCC) US MONITORING NST Routine 06/11/2025 4:11 PM CDT Type 1 diabetes mellitus (CMS/HCC) US OB FOLLOW UP PER FETUS Routine 06/11/2025 3:15 PM CDT Type 1 diabetes mellitus (CMS/HCC) US OB LIMITED + NST Routine 06/07/2025 4 :15 PM CDT Type 1 diabetes mellitus (CMS/HCC) US OB LIMITED + NST Routine 06/04/2025 4 :12 PM CDT Type 1 diabetes mellitus (CMS/HCC) US OB LIMITED + NST Routine 05/31/2025 4 :18 PM CDT Type 1 diabetes mellitus complicating , antepartum US OB LIMITED + NST Routine 05/28/2025 3 :58 PM CDT Type 1 diabetes mellitus complicating , antepartum US OB LIMITED + NST Routine 05/24/2025 4 :25 PM CDT Type 1 diabetes mellitus complicating , antepartum US OB LIMITED + NST Routine 05/21/2025 3 :52 PM CDT Type 1 diabetes mellitus complicating , antepartum US OB LIMITED + NST Routine 05/17/2025 3 :27 PM CDT Type 1 diabetes mellitus complicating , antepartum US MONITORING NST Routine 05/14/2025 4:16 PM CDT Type 1 diabetes mellitus complicating , antepartum US OB FOLLOW UP PER FETUS Routine 05/14/2025 3:35 PM CDT Type 1 diabetes mellitus complicating , antepartum US OB LIMITED + NST Routine 05/10/2025 4 :18 PM CDT Type 1 diabetes mellitus complicating , antepartum US OB LIMITED + NST Routine 05/07/2025 4 :26 PM CDT Type 1 diabetes mellitus complicating , antepartum US OB FOLLOW UP PER FETUS Routine [...] Last 3 Months Results * US OB LIMITED + NST (06/14/2025 4:29 PM CDT) Only the most recent of10 resultswithin the time period is included. Anatomical Region Laterality Modality Pelvis Ultrasound 06/14/2025 3:50 PM CDT Narrative 06/14/2025 4:[address] [facility] STUDY ----- Pat. Name: ARACELI RAMIREZ Study Date: 06/14/2025 3:50pm Pat. NO: [id number] Referring MD: WILTON KIRKLAND MD Site: [facility] [employer]: : 1995 Age: 29 ----- INDICATION ----- Diabetes type I CODING ----- Diagnoses Z3A.37: Weeks of gestation O24.013: Pre-existing type 1 diabetes mellitus, in O09.893: Supervision of other high risk pregnancies Procedures 96632: NST/ monitoring 50307: Limited 1 or more - VIVEK, FHR, position (modifier 59 for MBPP) HISTORY ----- OB History 1 MATERNAL ASSESSMENT ----- Physical Exam Weight 72 kg. BMI 24.75 kg/m . Blood pressure 125/70 mmHg. Heart rate 91 bpm METHOD ----- EFM, Transabdominal ultrasound examination. View: Good view ----- [place] . Number of fetuses: 1 DATING ----- GA by prior assessment 37 w + 3 d APPLE by prior assessment: 07/02/2025 Method of dating: Restore dating from previous exam Assigned: based on stated APPLE, selected on 02/18/2025 Assigned GA 37 w + 3 d Assigned APPLE: 07/02/2025 GENERAL EVALUATION ----- Cardiac activity present. FHR 148 bpm. movements: visualized. Presentation: breech NON STRESS TEST ----- NST interpretation: reactive. Test duration 27 min. Baseline FHR 135 bpm. Baseline variability: moderate. Accelerations: Present. Decelerations: absent. Uterine activity: present, irritability AMNIOTIC FLUID ASSESSMENT ----- Amount of AF: normal amount MVP 4.3 cm. VIVEK 10.4 cm. Q1 4.3 cm, Q2 1.4 cm, Q3 3.3 cm, Q4 1.4 cm COMMENT ----- Nurses Notes: Patient reports positive movement and no bleeding, leaking of fluid or aaron. Patient scheduled twice weekly IMPRESSION ----- testing @ 37w 3d for T1DM. -The NST is reactive. -Amniotic fluid indices are within normal limits. -Reassuring testing. Continue twice weekly testing. Thank you for allowing us to participate in the care of your patient. Procedure Note Vale Stephenson MD - 06/14/2025 MODIFIED BPP STUDY ----- Pat. Name:Angélica RAMIREZ Date:06/14/2025 3:50pm Pat. NO: [id number] MD:WILTON KIRKLAND MD [facility]1995Age:29 ----- INDICATION ----- Diabetes type I CODING ----- Diagnoses Z3A.37: Weeks of gestation O24.013: Pre-existing type 1 diabetes mellitus, inpregnancy O09.893: Supervision of other high riskpregnancies Procedures 08974: NST/ monitoring 31550: Limited 1 or more - VIVEK, FHR, position(modifier 59 for MBPP) HISTORY ----- OB History 1 MATERNAL ASSESSMENT ----- Physical Exam Weight 72 kg. BMI 24.75 kg/m . Blood ugpdvdyu570/70 mmHg. Heart rate 91 bpm METHOD ----- EFM, Transabdominal ultrasound examination. View: Good view ----- [place] . Number of fetuses: 1 DATING ----- GA by prior [id number] w + 3 d APPLE by prior assessment:07/02/2025 Method of dating:Restore dating from previous exam Assigned:based on stated APPLE, selected on 02/18/2025 Assigned GA37 w + 3 d Assigned APPLE:07/02/2025 GENERAL EVALUATION ----- Cardiac activity present. FHR 148 bpm. movements: visualized.Presentation: breech NON STRESS TEST ----- NST interpretation: reactive. Test duration 27 min. Baseline FHR 135 bpm.Baseline variability: moderate. Accelerations: Present. Decelerations: absent. Uterine activity: present, irritability AMNIOTIC FLUID ASSESSMENT ----- Amount of AF: normal amount MVP 4.3 cm. VIVEK 10.4 cm. Q1 4.3 cm, Q2 1.4 cm, Q3 3.3 cm, Q4 1.4 cm COMMENT ----- Nurses Notes: Patient reports positive movement and no bleeding,leaking of fluid or aaron. Patient scheduled twice weekly IMPRESSION ----- testing @ 37w 3d for T1DM. -The NST is reactive. -Amniotic fluid indices are within normal limits. -Reassuring testing. Continue twice weekly testing. Thank you for allowing us to participate in the care of your patient. us Nba Dudley MD US ORDERABLES Final Re sult * US MONITORING NST (06/11/2025 4:11 PM CDT) Only the most recent of2 resultswithin the time period is included. Anatomical Region Laterality Modality Ultrasound 06/11/2025 3:28 PM CDT Narrative 06/11/2025 4:04 PM CDT [facility] NST ----- Pat. Name: ARACELI RAMIREZ Study Date: 06/11/2025 3:28pm Pat. NO: [id number] Referring MD: WILTON KIRKLAND MD Site: [facility] [employer]: : 1995 Age: 29 ----- INDICATION ----- Diabetes type I CODING ----- Diagnoses Z3A.37: Weeks of gestation O24.013: Pre-existing type 1 diabetes mellitus, in O09.893: Supervision of other high risk pregnancies Procedures 23439: NST/ monitoring HISTORY ----- OB History 1 MATERNAL ASSESSMENT ----- Physical Exam Blood pressure 145/72 mmHg. Heart rate 87 bpm Repeat BP 131/71 METHOD ----- EFM ----- [place] . Number of fetuses: 1 DATING ----- GA by prior assessment 37 w + 0 d APPLE by prior assessment: 07/02/2025 Method of dating: Restore dating from previous exam Assigned: based on stated APPLE, selected on 02/18/2025 Assigned GA 37 w + 0 d Assigned APPLE: 07/02/2025 NON STRESS TEST ----- NST interpretation: reactive. Test duration 21 min. Baseline FHR 140 bpm. Baseline variability: moderate. Accelerations: Present. Decelerations: Not present. Uterine activity: present, irritability COMMENT ----- Nursing notes: Patient reports positive movement with no bleeding, leaking or aaron. Pt had Growth US prior to today's NST appt. See separate report. Will see OB soon at which time hopes to determine Primary C/S date. Twice weekly testing. IMPRESSION ----- Reactive NST Procedure Note Nba Dudley MD - 06/11/2025 [facility] NST ----- Pat. Name:Angélica RAMIREZ Date:06/11/2025 3:28pm Pat. NO: [id number] MD:WILTON KIRKLAND MD [facility]1995Age:29 ----- INDICATION ----- Diabetes type I CODING ----- Diagnoses Z3A.37: Weeks of gestation O24.013: Pre-existing type 1 diabetes mellitus, inpregnancy O09.893: Supervision of other high riskpregnancies Procedures 00789: NST/ monitoring HISTORY ----- OB History 1 MATERNAL ASSESSMENT ----- Physical Exam Blood pressure 145/72 mmHg. Heart rate 87 bpm Repeat BP 131/71 METHOD ----- EFM ----- [place] . Number of fetuses: 1 DATING ----- GA by prior w + 0 d APPLE by prior assessment:07/02/2025 Method of dating:Restore dating from previous exam Assigned:based on stated APPLE, selected on 02/18/2025 Assigned GA37 w + 0 d Assigned APPLE:07/02/2025 NON STRESS TEST ----- NST interpretation: reactive. Test duration 21 min. Baseline FHR 140 bpm.Baseline variability: moderate. Accelerations: Present. Decelerations: Not present. Uterine activity: present, irritability COMMENT ----- Nursing notes: Patient reports positive movement with no bleeding,leaking or aaron. Pt had Growth US prior to today's NST appt. See separate report. Will see OB soon at which timehopes to determine Primary C/S date. Twice weekly testing. IMPRESSION ----- Reactive NST us Nba Dudley MD US ORDERABLES Final Re sult * US OB FOLLOW UP PER FETUS (06/11/2025 3:15 PM CDT) Only the most recent of4 resultswithin the time period is included. Anatomical Region Laterality Modality Pelvis Ultrasound 06/11/2025 2:48 PM CDT Narrative 06/11/2025 3:20 PM CDT [facility] FOLLOW UP ----- Pat. Name: ARACELI RAMIREZ Study Date: 06/11/2025 2:48pm Pat. NO: [id number] Referring MD: WILTON KIRKLAND MD Site: [facility] [employer]: Pierre Negron RDMS : 1995 Age: 29 ----- INDICATION ----- Diabetes type I CODING ----- Diagnoses Z3A.37: Weeks of gestation O24.013: Pre-existing type 1 diabetes mellitus, in O09.893: Supervision of other high risk pregnancies Procedures 98461: Ultrasound, uterus, real time with image documentation, follow up, transabdominal approach per fetus HISTORY ----- OB History 1 MATERNAL ASSESSMENT ----- Physical Exam Weight 72 kg. BMI 24.75 kg/m METHOD ----- Transabdominal ultrasound examination ----- [place] . Number of fetuses: 1 DATING ----- GA by prior assessment 37 w + 0 d APPLE by prior assessment: 07/02/2025 Ultrasound examination on: 06/11/2025 GA by U/S based upon: AC, BPD, Femur, HC GA by U/S 39 w + 6 d APPLE by U/S: 06/12/2025 Method of dating: Restore dating from previous exam Assigned: based on stated APPLE, selected on 02/18/2025 Assigned GA 37 w + 0 d Assigned APPLE: 07/02/2025 BIOMETRY ----- BPD 95.1 mm 38w 6d 96% Hadlock OFD 128.1 mm -/- >99% Yvon HC 357.1 mm 41w 6d >99% Hadlock AC 377.1 mm 41w 5d >99% Hadlock Femur 72.0 mm 36w 6d 45% Hadlock HC / AC 0.95 16% Nicolaides Weight Calculation: EFW 4,079 g -/- >99% Hadlock EFW (lb,oz) 9 lb 0 oz EFW by Hadlock ([id number]) Extremities / Bony Struc Biometry: FL / BPD 0.76 FL / HC 0.20 FL / AC 0.19 GENERAL EVALUATION ----- Cardiac activity present. FHR 144 bpm. movements: present. Presentation: breech Placenta: anterior Umbilical cord: Cord vessels: 3 vessel cord. Insertion site: placental insertion: normal Amniotic fluid: Amount of AF: normal amount. MVP 6.0 cm. VIVEK 13.7 cm. Q1 6.0 cm, Q2 2.8 cm, Q3 5.0 cm, Q4 0.0 cm ANATOMY ----- The following structures appear normal: Head / Neck Cranium. Heart / Thorax Diaphragm. Abdomen Stomach. Kidneys. Bladder. sex: male. GROWTH OVERVIEW ----- Exam date GA BPD (mm) HC (mm) AC (mm) FL (mm) HL (mm) EFW (g) 02/18/2025 20w 6d 49.8 58% 187.8 51% 169.9 78% 36.0 61% 34.4 77% 439 83% 03/21/2025 25w 2d 63.0 50% 243.2 68% 216.6 68% 45.1 25% 841 57% 04/18/2025 29w 2d 74.5 57% 286.0 79% 275.0 95% 57.0 53% 1,661 89% 05/14/2025 33w 0d 83.4 61% 310.2 57% 317.5 98% 62.5 22% 2,440 83% 06/11/2025 37w 0d 95.1 96% 357.1 >99% 377.1 >99% 72.0 45% 4,079 >99% COMMENT ----- Patient's name and date of were verified by the luggage maker prior to the exam IMPRESSION ----- Hammond @ 37w 0d complicated by T1DM. She has had a Maternal- Medicine consultation. - The biometry is AHEAD of dates with the EFW and the AC >99% percentile. The EFW is 4,079 gm today. - Amniotic fluid indices are within normal limits. - Limited anatomy is unremarkable. The patient had an NST following the ultrasound; please see separate report for details. Further ultrasounds may be scheduled as clinically indicated. Thank you for allowing us to participate in the care of this patient. Procedure Note Vale Stephenson MD - 06/11/2025 [facility] FOLLOW UP ----- Pat. Name:Angélica RAMIREZ Date:06/11/2025 2:48pm Pat. NO: [id number] MD:WILTON KIRKLAND MD [facility]Pierre Negron RDMS :1995Age:29 ----- INDICATION ----- Diabetes type I CODING ----- Diagnoses Z3A.37: Weeks of gestation O24.013: Pre-existing type 1 diabetes mellitus, inpregnancy O09.893: Supervision of other high riskpregnancies Procedures 56876: Ultrasound, uterus, real time withimage documentation, follow up, transabdominal approach per fetus HISTORY ----- OB History 1 MATERNAL ASSESSMENT ----- Physical Exam Weight 72 kg. BMI 24.75 kg/m METHOD ----- Transabdominal ultrasound examination ----- [place] . Number of fetuses: 1 DATING ----- GA by prior [id number] w + 0 d APPLE by prior assessment:07/02/2025 Ultrasound examination on:06/11/2025 GA by U/S based upon:AC, BPD, Femur, HC GA by U/S39 w + 6 d APPLE by U/S:06/12/2025 Method of dating:Restore dating from previous exam Assigned:based on stated APPLE, selected on 02/18/2025 Assigned GA37 w + 0 d Assigned APPLE:07/02/2025 BIOMETRY ----- BPD 95.1 mm 38w 6d 96%Hadlock OFD 128.1 mm -/- >99%Yvon HC 357.1 mm 41w 6d >99%Hadlock AC 377.1 mm 41w 5d >99%Hadlock Femur 72.0 mm 36w 6d 45%Hadlock HC / AC 0.95 16%Nicolaides Weight Calculation: EFW 4,079 g -/- >99%Hadlock EFW (lb,oz) 9 lb 0 oz EFW by Hadlock ([id number]) Extremities / Bony Struc Biometry: FL / BPD 0.76 FL / HC 0.20 FL / AC 0.19 GENERAL EVALUATION ----- Cardiac activity present. FHR 144 bpm. movements: present.Presentation: breech Placenta: anterior Umbilical cord: Cord vessels: 3 vessel cord. Insertion site: placentalinsertion: normal Amniotic fluid: Amount of AF: normal amount. MVP 6.0 cm. VIVEK 13.7 cm. Q16.0 cm, Q2 2.8 cm, Q3 5.0 cm, Q4 0.0 cm ANATOMY ----- The following structures appear normal: Head / Neck Cranium. Heart / Thorax Diaphragm. Abdomen Stomach. Kidneys. Bladder. sex: male. GROWTH OVERVIEW ----- Exam date GA BPD (mm) HC (mm) AC (mm)FL (mm) HL (mm) EFW (g) 02/18/2025 20w 6d 49.8 58% 187.8 51% 169.9 78%36.0 61% 34.4 77% 439 83% 03/21/2025 25w 2d 63.0 50% 243.2 68% 216.6 68%45.1 25% 841 57% 04/18/2025 29w 2d 74.5 57% 286.0 79% 275.0 95%57.0 53% 1,661 89% 05/14/2025 33w 0d 83.4 61% 310.2 57% 317.5 98%62.5 22% 2,440 83% 06/11/2025 37w 0d 95.1 96% 357.1 >99% 377.1 >99%72.0 45% 4,079 >99% COMMENT ----- Patient's name and date of were verified by the luggage maker prior tothe exam IMPRESSION ----- Hammond @ 37w 0d complicated by T1DM. She has had a Maternal- Medicine consultation. - The biometry is AHEAD of dates with the EFW and the AC >99%percentile. The EFW is 4,079 gm today. - Amniotic fluid indices are within normal limits. - Limited anatomy is unremarkable. The patient had an NST following the ultrasound; please see separatereport for details. Further ultrasounds may be scheduled as clinically indicated. Thank you for allowing us to participate in the care of this patient. us Nba Dudley MD US ORDERABLES Final Re sult * ECHO 2D + COLOR FLOW VELOCITY (03/21/2025 1:57 PM CDT) Narrative 03/21/2025 1:57 PM CDT Order information only. Exam was auto-finalized. us Mae Kline MD ORDERABLES Final Result from Last 3 Months Insurance [facility] BLUE ACCESS CHOICE
--- OUTSIDE RECORDS SUMMARY | 2025-06-21 15:41 | XMS_ITS | Clinical Summary ---
Author Organization [facility] My Digital Shield Address [address] [place] [address] Care Team Providers Care Sound Equipment Mechanic Name Role Phone Lonnie Pond MD Primary Care Provider [phone] Naveen Bal MD Unavailable [phone] Allergies No known active allergies Medications glucagon (Gvoke HypoPen 1-Pack) 1 mg/0.2 mL auto-injector Inject 1 mg as needed by subcutaneous route as needed for 1 day. Active subcutaneous insulin pump misc Tandem Active insulin lispro (HumaLOG) 100 unit/mL vial [...] to inject insulin as directed 025 Active blood-glucose sensor (Dexcom G7 Sensor) device Use to continually monitor glucose, change sensor every 10 days. Need a return appointment before next refill 3 each 025 Active blood-glucose sensor (Dexcom G7 Sensor) device Apply to skin every 10 days 9 each 3 024 2024 Discontinued Active Problems Patient Care Coordination No te Formatting of this note migh t be different from the original. Patient's Claim Approver is Dr. Naveen Bal in [place], [place] (p) [phone] Problem Noted Date Diagnosed Date Nevus of [...] History Date Comments Type 1 diabetes mellitus Diabete s type 1; Comments: [facility] 07/22/2014 - Family [...] on file Legal Sex Female 9:01 PM ANGULAR DEVELOPER Gender Identity Not on file Sexual Orientation Not on file Obstetrics History Para Term AB IAB SAB Ectopic Multiple Livin g Live Births 1 Date Outcome GA Total Labor Labor/2nd/3rd Weight Sex Type Anes PTL Erin A1 A5 Name Clin Current Last Filed Vital Signs Vital Sign Reading Time Taken Comments Blood Pressure 116/72 12/14/2024 11:32 AM ANGULAR DEVELOPER Pulse 83 12/14/2024 11:32 AM ANGULAR DEVELOPER Temperature 36.7 C (98.1 F) 12/14/2024 11:32 AM ANGULAR DEVELOPER Respiratory Rate - - Oxygen Saturation - - Inhaled Oxygen Concentration - - Weight 69.7 kg (153 lb 9.6 oz) 12/14/2024 11:32 AM ANGULAR DEVELOPER Height 170.2 cm (5' 7) 12/14/2024 11:32 AM ANGULAR DEVELOPER Body Mass Index 24.06 12/14/2024 11:32 AM ANGULAR DEVELOPER Plan of Treatment Health Maintenance Due Date [...] eGFR 06/04/2025 06/04/2024 Hemoglobin A1C 06/13/2025 12/14/2024, 11/0 03/2024, 06/04/2024, Additional history exists Influenza Vaccine (#1) 2025 07/29/2015, 2012 TSH Level 12/14/2025 12/14/2024, 08/0 02/2024, 04/03/2020 Hepatitis B Screening Completed 03/02/1996 , 1995, 1995 Varicella Vaccines Completed 03/03/2001, 02/01/1997 HPV Vaccines Completed 12/22/2007, 10/0 12/2006, 06/30/2007 Procedures Procedure Name Priority Date/Time Associated Diagnosis Comments THYROID FUNCTION CASCADE Routine 12/14/2024 12:59 PM ANGULAR DEVELOPER Type 1 diabetes mellitus with hyperglycemia (HCC) POCT HEMOGLOBIN A1C Routine 12/14/2024 1 1:43 AM ANGULAR DEVELOPER Type 1 diabetes mellitus with hyperglycemia (HCC) [...] to Health Maintenance Results * Thyroid Function [place] (12/14/2024 12:59 PM ANGULAR DEVELOPER) TSH 0.47 0.30 - 4.20 mcIUnit/mL Blood 12/14/2024 12:5 9 PM ANGULAR DEVELOPER 12/14/2024 8:39 PM ANGULAR DEVELOPER Saloni Fragoso MD LAB BLOOD ORDERABLES Final Result [facility] [id number] [facility] [place] [address] * POCT hemoglobin A1c (12/14/2024 11:43 AM ANGULAR DEVELOPER) Hemoglobin A1C, POC 6.5 4.0 - 5.6 % Blood 12/14/2024 11:4 3 AM ANGULAR DEVELOPER Saloni Fragoso MD POINT OF CARE TEST [...] BLOOD ORDERABLES Final Result Performing Organization Address [facility] de Phone Number [facility] [id number] [facility] [place] [address] * Albumin Creatinine Ratio, Urine (06/04/2024 3:33 [...] URINE ORDERABLES Final Result Performing Organization Address [facility] de Phone Number [facility] [address] [facility] [place] [address] * (ABNORMAL) Lipid panel (06/04/2024 3:33 PM [...] MD LAB BLOOD ORDERABLES Final Result [facility] [address] [facility] [place] [address] from Last 3 Months or Most Recently Relevant to Health Maintenance Insurance [employer] ACCESS CHOICE [employer] ACCESS CHOICE Care Teams Sound Equipment Mechanic Relationship Specialty Start Date End Date Lonnie Pond MD PCP - General 10/14/14 Naveen Bal MD Consulting Physician Endocrinology Diabetes & Metabolism 05/31/20
[2025-06-21 17:52] LABS: HIV 1/2 Ab P24 Ag Result Negative (Negative); Syphilis IgG/IgM Antibody Non-Reactive (Nonreactive)
== END 2025-06-21 15:39 | disposition home or self-care (01) ==
LOC: ANHLAB 15:39
PROVIDERS: Visit Provider Nurse Practitioner Obstetrics & Gynecology
DX: Z34.90 Encounter for supervision of normal pregnancy, unspecified, unspecified trimester (principal); Z3A.00 Weeks of gestation of pregnancy not specified
CPT/HCPCS: 36415; 86593; 86703; G0432

== ENCOUNTER 2025-06-24 16:03 | Outpatient (CLI) | payer BC, SELFPAY ==
--- OUTSIDE RECORDS SUMMARY | 2025-06-24 16:06 | XMS_ITS | Encounter Summary ---
Author Organization [facility] Address [address] [place] [address] Care Team Providers Care Nailing Machine Operator Name Role Phone Unavailable Primary Care Provider Unavailabl e Reason for Visit * Reason Onset Date Comments Question 06/24/2025 Encounter Details Date Type Department Care Team (Late st Contact Info) Description 06/24/2025 Telephone [facility] Maternal Medicine [address] [facility] [address] [place] [address] Verena Duke MD [address] [place] [address] Question Social History Tobacco Use Types Packs/Day Years Used Date Smoking Tobacco: Never Assessed Estimated Date of Delivery Comme nts Yes 07/02/2025 Date entered levon or to episode creation Sex and Gender Information Value Date Recorded Sex Assigned at Not on file Legal Sex Female 2:11 PM LOSS PREVENTION REPRESENTATIVE Gender Identity Not on file Sexual Orientation Not on file documented as of this encounter Miscellaneous Notes * Telephone Encounter - Verena Duke MD - 06/24/2025 9:[address] Mosqueda called for insulin pump plan. Discussed plan for insulin pump. Change setting morning of C/S to pp settings (review from clinical notes) about 1 hr prior to C/S. Continue automode Switch to U100 insulin after delivery PP settings confirmed with Dr. Mosqueda Recommended DM educator to interogate pump and patient to bring extra pump supplies. CGM and pump can stay on during Verena Duke MD documented in this encounter Plan of Treatment Not on file documented as of this encounter Visit Diagnoses Not on filedocumented in this encounter
--- OUTSIDE RECORDS SUMMARY | 2025-06-24 16:06 | XMS_ITS | Clinical Summary ---
Author Organization [facility] Address [address] [place] [address] Phone Care Team Providers Care Surgical Coordinator Name Role Phone Unavailable Primary Care Provider [...] days left Active vits15/iron/f olic/dss ( VIT 13-HPON-HEHJM -DSS ORAL) Take by mouth. Acti ve [...] Encounters Date Type Department Care Team Description 06/24/[address] [facility] Maternal and Medicine - Medical [place] [address] [place] [address] Chepe Howe MD 06/24/[address] [facility] Maternal Medicine [address] [address] [place] [address] Verena Duke MD Question 06/18/[address] [facility] Maternal Medicine [address] [facility] [address] [place] [address] Mae Kline MD Diabetes 06/14/2025 3:41 PM CDT - 06/14/2025 11:59 PM CDT Hospital Encounter [facility] Maternal and Ground Floor [address] [facility] [address] [place] [address] Nba Dudley MD Discharge Disposition: Home or Self Care 06/13/2025 9:45 AM CDT Video Visit [facility] Maternal and Medicine - Medical [place] [address] [place] [address] Estefania Alva NP complicated by pre-existing type 1 diabetes in third trimester (Primary Dx); 37 weeks gestation of 06/13/[address] [facility] Maternal and Medicine - Medical [place] [address] [place] [address] Fela Miller RN Diabetes 06/11/2025 2:54 PM CDT - 06/11/2025 11:59 PM CDT Hospital Encounter [facility] Maternal and Ground Floor [address] [place] [address] Nba Dudley MD Discharge Disposition: Home or Self Care 06/11/2025 2:45 PM CDT - 06/11/2025 11:59 PM CDT Hospital Encounter [facility] Maternal and Ground Floor [address] [place] [address] Nba Dudley MD Discharge Disposition: Home or Self Care 06/07/2025 2:36 PM CDT - 06/07/2025 11:59 PM CDT Hospital Encounter [facility] Maternal and Ground Floor [address] [place] [address] Nba Dudley MD Discharge Disposition: Home or Self Care 06/06/[address] [facility] Maternal Medicine [address] [place] [address] Fela Rievra MD Diabetes 06/04/2025 2:33 PM CDT - 06/04/2025 11:59 PM CDT Hospital Encounter [facility] Maternal and Ground Floor [address] [place] [address] Nba Dudley MD Discharge Disposition: Home or Self Care 05/31/2025 2:42 PM CDT - 05/31/2025 11:59 PM CDT Hospital Encounter [facility] Maternal and Ground Floor [address] [place] [address] Pretty Fishman MD Discharge Disposition: Home or Self Care 05/31/[address] [facility] Maternal and Medicine - Medical [place] [address] [place] [address] Mae Kline MD Diabetes 05/29/[address] [facility] Maternal Medicine [address] [place] [phone] Estefania Alva NP Diabetes 05/28/2025 2:33 PM CDT - 05/28/2025 11:59 PM CDT Hospital [facility] Maternal and Ground Floor [address] [place] [address] Pretty Fishman MD Discharge Disposition: Home or Self Care 05/24/2025 2:51 PM CDT - 05/24/2025 11:59 PM CDT Hospital Encounter [facility] Maternal and Ground Floor [address] [place] [place] [address] Pretty Fishman MD Discharge Disposition: Home or Self Care 05/23/2025 9:00 AM CDT Video Visit [facility] Maternal and Medicine - Medical [place] [address] [place] [address] Estefania Alva NP complicated by pre-existing type 1 diabetes in third trimester (Primary Dx); 34 weeks gestation of 05/23/[address] [facility] Maternal and Medicine - Medical [place] [address] [place] [phone] Estefania Alva NP Diabetes 05/21/2025 2:41 PM CDT - 05/21/2025 11:59 PM CDT Hospital Encounter [facility] Maternal and Ground Floor [address] [place] [address] Pretty Fishman MD Discharge Disposition: Home or Self Care 05/17/2025 2:36 PM CDT - 05/17/2025 11:59 PM CDT Hospital Encounter [facility] Maternal and Ground Floor [address] [place] [address] Pretty Fishman MD Discharge Disposition: Home or Self Care 05/15/2025 External Device Data STL ABSTRACTION Provider, Abstract 05/14/2025 2:56 PM CDT - 05/14/2025 11:59 PM CDT Hospital Encounter [facility] Maternal and Ground Floor [address] [place] [address] Pretty Fishman MD Discharge Disposition: Home or Self Care 05/14/2025 2:56 PM CDT - 05/14/2025 11:59 PM CDT Hospital Encounter [facility] Maternal and Ground Floor [address] [place] [address] Pretty Fishman MD Discharge Disposition: Home or Self Care 05/14/2025 External Device Data STL ABSTRACTION Provider, Abstract 05/10/2025 3:26 PM CDT - 05/10/2025 11:59 PM CDT Hospital Encounter [facility] Maternal and Ground Floor [address] [place] [address] Pretty Fishman MD Discharge Disposition: Home or Self Care 05/09/[address] [facility] Maternal and Medicine - Medical [place] [address] [address] [place] [address] Estefania Avla NP Diabetes 05/07/2025 3:15 PM CDT - 05/07/2025 11:59 PM CDT Hospital Encounter [facility] Maternal and Ground Floor [address] [place] [phone] Pretty Fishman MD Discharge Disposition: Home or Self Care 04/30/2025 External Device Data STL ABSTRACTION Provider, Abstract 04/25/2025 9:00 AM CDT Video Visit [facility] Maternal and Medicine - Medical [place] [address] [place] [phone] Estefania Alva NP complicated by pre-existing type 1 diabetes in third trimester (Primary Dx); 30 weeks gestation of 04/25/[address] [facility] Maternal and Medicine - Medical [place] [address] [place] [phone] Estefania Alva NP Diabetes 04/18/2025 3:35 PM CDT - 04/18/2025 11:59 PM CDT Hospital Encounter [facility] Maternal and Ground Floor S Replaced [facility] [address] [place] [phone] Mae Kline MD Discharge Disposition: Home or Self Care 04/17/[address] [facility] Maternal Medicine [address] [place] [address] Camryn Perla CNM Diabetes 04/16/2025 External Device Data STL ABSTRACTION Provider, Abstract 03/28/2025 11:15 AM CDT Video Visit [facility] Maternal and Medicine - Medical [place] [address] [place] [address] Estefania Alva NP complicated by pre-existing type 1 diabetes in second trimester (Primary Dx); 26 weeks gestation of 03/28/[address] [facility] Maternal and Medicine - Medical [place] [address] [phone] Estefania Alva NP Diabetes from Last 3 Months Social History Tobacco Use Types Packs/Day Years Used Date Smoking Tobacco: Never Assessed Estimated Date of Delivery Comme nts Yes 07/02/2025 Date entered levon or to episode creation Sex and Gender Information Value Date Recorded Sex Assigned at Not on file Legal Sex Female 2:11 PM TRAILERS AND MOTOR HOMES SALESPERSON Gender Identity Not on file Sexual Orientation Not on file Last Filed Vital Signs Vital Sign Reading Time Taken Comments Blood Pressure - - Pulse - - Temperature - - Respiratory Rate - - Oxygen Saturation - - Inhaled Oxygen Concentration - - Weight 71.7 kg (158 lb) 01/02/2025 1:55 PM TRAILERS AND MOTOR HOMES SALESPERSON Height 170.2 cm (5' 7) 01/02/2025 1:55 PM TRAILERS AND MOTOR HOMES SALESPERSON Body Mass Index 24.75 01/02/2025 1:55 PM TRAILERS AND MOTOR HOMES SALESPERSON Plan of Treatment Health Maintenance Due Date Last Done Comments DIABETES ANNUAL FOOT EXAM 2013 DIABETES ANNUAL RETINAL EXAM 2013 DIABETES MICROALBUMIN ANNUAL SCREEN 2013 LDL CHOLESTEROL ANNUAL 2013 CERVICAL CANCER SCREENING 2016 HPV/Cotest (21-29) 2016 PAP SMEAR 2016 DTAP/TDAP/TD VACCINES (6 - T d or Tdap) 05/13/2020 05/13/2010, 03/03/2001, 03/03/2001, Additional history exists Preventative Visit- Commercial 10/31/2024 INFLUENZA VACCINE (#1) 2025 DIABETES HBA1C Q [...] 1 diabetes mellitus during in second trimester from Last 3 Months Results * US OB LIMITED + NST (06/14/2025 4:29 PM CDT) Only the most recent of10 resultswithin the time period is included. Anatomical Region Laterality Modality Pelvis Ultrasound 06/14/2025 3:50 PM CDT Narrative 06/14/2025 4:28 PM CDT MODIFIED BP STUDY ----- Pat. Name: ARACELI RAMIREZ Study Date: 06/14/2025 3:50pm Pat. NO: [id number] Referring MD: WILTON KIRKLAND MD Site: [facility] [address] Maker: : 1995 Age: 29 ----- INDICATION ----- Diabetes type I CODING ----- Diagnoses Z3A.37: Weeks of gestation O24.013: Pre-existing type 1 diabetes mellitus, in O09.893: Supervision of other high risk pregnancies Procedures 38604: NST/ monitoring 12452: Limited 1 or more - VIVEK, FHR, [...] present. FHR 148 bpm. movements: visualized. Presentation: lino NON STRESS TEST ----- NST interpretation: reactive. [...] MD - 06/14/2025 MODIFIED BPP STUDY ----- Name:Angélica RAMIREZ Date:06/14/2025 3:50pm Pat. NO: [id number] MD:WILTON KIRKLAND MD [facility]1995Age:29 ----- INDICATION ----- Diabetes type I CODING ----- Diagnoses Z3A.37: Weeks of gestation O24.013: Pre-existing type 1 diabetes mellitus, inpregnancy O09.893: Supervision of other high riskpregnancies Procedures 94717: NST/ monitoring 68958: Limited 1 or more - VIVEK, FHR, position(modifier 59 for MBPP) HISTORY ----- OB History 1 MATERNAL ASSESSMENT ----- Physical Exam Weight 72 kg. BMI 24.75 kg/m . Blood fhhjkqfa192/70 mmHg. Heart rate 91 bpm METHOD ----- EFM, Transabdominal ultrasound examination. View: Good view ----- Hammond . Number of fetuses: 1 DATING ----- GA by prior [id number] w + 3 d APPLE by prior [...] of your patient. us Nba Dudley MD ORDERABLES Final Re sult * US MONITORING NST (06/11/2025 4:11 PM CDT) Only the most recent of2 resultswithin the time period is included. Anatomical Region Laterality Modality Ultrasound 06/11/2025 3:28 PM CDT Narrative 06/11/2025 4:[address] [facility] NST ----- Pat. Name: ARACELI RAMIREZ Study Date: 06/11/2025 3:28pm Pat. NO: [id number] Referring MD: WILTON KIRKLAND MD Site: [facility] [address] Maker: : 1995 Age: 29 ----- INDICATION ----- Diabetes type I CODING ----- Diagnoses Z3A.37: Weeks of gestation O24.013: Pre-existing type 1 diabetes mellitus, in O09.893: Supervision of other high risk pregnancies Procedures 40709: NST/ monitoring HISTORY ----- OB History 1 [...] Procedure Note Nba Dudley MD - 06/11/2025 [facility] NST ----- Pat. Name:Angélica RAMIREZ Date:06/11/2025 3:28pm Pat. NO: [id number] MD:WILTON KIRKLAND MD [facility]1995Age:29 ----- INDICATION ----- Diabetes type I CODING ----- Diagnoses Z3A.37: Weeks of gestation O24.013: Pre-existing type 1 diabetes mellitus, inpregnancy O09.893: Supervision of other high riskpregnancies Procedures 58082: NST/ monitoring HISTORY ----- OB History 1 MATERNAL ASSESSMENT ----- Physical Exam Blood pressure 145/72 mmHg. Heart rate 87 bpm Repeat BP 131/71 METHOD ----- EFM ----- Hammond . Number of fetuses: 1 DATING ----- GA by prior [id number] w + 0 d APPLE by prior [...] 3:15 PM CDT) Only the most recent of3 resultswithin the time period is included. Anatomical Region Laterality Modality Pelvis Ultrasound 06/11/2025 2:48 PM CDT Narrative 06/11/2025 3:20 PM CDT ST[facility] FOLLOW UP ----- Pat. Name: ARACELI RAMIREZ Study Date: 06/11/2025 2:48pm Pat. NO: [id number] Referring MD: WILTON KIRKLAND MD Site: [facility] [address] Maker: Pierre Negron RDMS : 1995 Age: 29 ----- INDICATION ----- Diabetes type I CODING ----- Diagnoses Z3A.37: Weeks of gestation O24.013: Pre-existing type 1 diabetes mellitus, in O09.893: Supervision of other high risk pregnancies Procedures 37949: Ultrasound, uterus, real time with image documentation, [...] by U/S 39 w + 6 d APPEL by U/S: 06/12/2025 Method of dating: Restore dating from previous exam Assigned: based on stated APPLE, selected on 02/18/2025 Assigned GA 37 w + 0 d Assigned APPLE: 07/02/2025 BIOMETRY ----- BPD 95.1 mm 38w 6d 96% Hadlock OFD 128.1 mm -/- >99% Yovn HC 357.1 mm 41w 6d >99% Hadlock AC 377.1 mm 41w 5d >99% Hadlock Femur 72.0 mm 36w 6d 45% Hadlock HC / AC 0.95 16% Nicolaides Weight Calculation: EFW 4,079 g -/- >99% Hadlock EFW (lb,oz) 9 lb 0 oz EFW by Hadlock ([id number]) Extremities / Bony Struc Biometry: FL / [...] and date of were verified by the quality assurance monitor prior to the exam IMPRESSION ----- Hammond [...] Pat. Name:Angélica RAMIREZ Date:06/11/2025 2:48pm Pat. NO: [id number] MD:WILTON KIRKLAND MD [facility]Pierre Negron RDMS :1995Age:29 ----- INDICATION ----- Diabetes type I CODING ----- Diagnoses Z3A.37: Weeks of gestation O24.013: Pre-existing type 1 diabetes mellitus, inpregnancy O09.893: Supervision of other high riskpregnancies Procedures 84298: Ultrasound, uterus, real time withimage documentation, follow up, transabdominal approach per fetus HISTORY ----- OB History 1 MATERNAL ASSESSMENT ----- Physical Exam Weight 72 kg. BMI 24.75 kg/m METHOD ----- Transabdominal ultrasound examination ----- Hammond . Number of fetuses: 1 DATING ----- GA by prior [id number] w + 0 d APPLE by prior [...] 9 lb 0 oz EFW by Hadlock ([id number]) Extremities / Bony Struc Biometry: FL / [...] and date of were verified by the quality assurance monitor prior tothe exam IMPRESSION ----- Hammond @ [...] of this patient. us Nba Dudley MD ORDERABLES Final Re sult from Last 3 Months Insurance [facility] BLUE ACCESS CHOICE
--- OUTSIDE RECORDS SUMMARY | 2025-06-24 16:06 | XMS_ITS | Clinical Summary ---
Author Organization [facility] Address [address] [place] [address] Care Team Providers Care Willow Machine Tender Name Role Phone Unavailable Primary Care Provider Unavailabl e Source Comments [facility],non-owned Affiliates and Associated Physician Practices is amultiple site organization consisting of ambulatory clinics and hospital sitesin [place], [place], [place] and [place]. This disclosure is being madepursuant to the Care Everywhere program and may not contain all information available regarding this patient. Last updated 18.[facility] Allergies No known active allergies Social History Tobacco Use Types Packs/Day Years Used Date Smoking Tobacco: Never Assessed Estimated Date of Delivery Comme nts Yes 07/02/2025 Based on last me nstrual period of 09/25/2024 Sex and Gender Information Value Date Recorded Sex Assigned at Not on file Legal Sex Female 11:15 AM CLAM SHOVEL OPERATOR Gender Identity Not on file Sexual [...]
--- OUTSIDE RECORDS SUMMARY | 2025-06-24 16:06 | XMS_ITS | Clinical Summary ---
Author Organization [facility] Address [address] [place] [address] Care Team Providers Care Health Safety Coordinator Name Role Phone Lonnie Pond MD Primary Care Provider [phone] Naveen Bal MD Unavailable [phone] Allergies No known active allergies Medications glucagon [...] t be different from the original. Patient's Driver Education Instructor is Dr. Naveen Bal in [place], [place] (p) [phone] Problem Noted Date Diagnosed Date Nevus of [...] on file Legal Sex Female 9:01 PM INSPECTOR FIBROUS WALLBOARD Gender Identity Not on file Sexual Orientation Not on file Obstetrics History Para Term AB IAB SAB Ectopic Multiple Livin g Live Births 1 Date Outcome GA Total Labor Labor/2nd/3rd Weight Sex Type Anes PTL Erin A1 A5 Name Clin Current Last Filed Vital Signs Vital Sign Reading Time Taken Comments Blood Pressure 116/72 12/14/2024 11:32 AM INSPECTOR FIBROUS WALLBOARD Pulse 83 12/14/2024 11:32 AM INSPECTOR FIBROUS WALLBOARD Temperature 36.7 C (98.1 F) 12/14/2024 11:32 AM INSPECTOR FIBROUS WALLBOARD Respiratory Rate - - Oxygen Saturation - - Inhaled Oxygen Concentration - - Weight 69.7 kg (153 lb 9.6 oz) 12/14/2024 11:32 AM INSPECTOR FIBROUS WALLBOARD Height 170.2 cm (5' 7) 12/14/2024 11:32 AM INSPECTOR FIBROUS WALLBOARD Body Mass Index 24.06 12/14/2024 11:32 AM INSPECTOR FIBROUS WALLBOARD Plan of Treatment Health Maintenance Due Date [...] THYROID FUNCTION CASCADE Routine 12/14/2024 12:59 PM INSPECTOR FIBROUS WALLBOARD Type 1 diabetes mellitus with hyperglycemia (HCC) POCT HEMOGLOBIN A1C Routine 12/14/2024 1 1:43 AM INSPECTOR FIBROUS WALLBOARD Type 1 diabetes mellitus with hyperglycemia (HCC) [...] to Health Maintenance Results * Thyroid Function Emmons (12/14/2024 12:59 PM INSPECTOR FIBROUS WALLBOARD) TSH 0.47 0.30 - 4.20 mcIUnit/mL Blood 12/14/2024 12:5 9 PM INSPECTOR FIBROUS WALLBOARD 12/14/2024 8:39 PM INSPECTOR FIBROUS WALLBOARD Saloni Fragoso MD LAB BLOOD ORDERABLES Final Result [facility] [id number] Department [place] [address] * POCT hemoglobin A1c (12/14/2024 11:43 AM INSPECTOR FIBROUS WALLBOARD) Hemoglobin A1C, POC 6.5 4.0 - 5.6 % Blood 12/14/2024 11:4 3 AM INSPECTOR FIBROUS WALLBOARD Saloni Fragoso MD POINT OF CARE TEST [...] BLOOD ORDERABLES Final Result Performing Organization Address [facility] de Phone Number [facility] [address] [facility] [place] [address] * Albumin Creatinine Ratio, Urine (06/04/2024 3:33 [...] URINE ORDERABLES Final Result Performing Organization Address [facility] de Phone Number [facility] [address] [address] [facility] [place] [address] * (ABNORMAL) Lipid panel (06/04/2024 3:33 PM [...] MD LAB BLOOD ORDERABLES Final Result [facility] [address] Department [place] [address] from Last 3 Months or Most Recently Relevant to Health Maintenance Insurance [employer] ACCESS CHOICE [employer] ACCESS CHOICE Care Teams Health Safety Coordinator Relationship Specialty Start Date End Date Lonnie Pond MD PCP - General 10/14/14 Naveen Bal MD Consulting Physician Endocrinology Diabetes & Metabolism 05/31/20
--- OUTSIDE RECORDS SUMMARY | 2025-06-24 16:06 | XMS_ITS | Encounter Summary ---
Author Organization [facility] Address [address] [place] [address] Care Team Providers Care Geophysics Teacher Name Role Phone Unavailable Primary Care Provider Unavailabl e Encounter Details Date Type Department Care Team (Late st Contact Info) Description 06/24/2025 Telephone [facility] Maternal and Medicine - [address] [place] [address] Chepe Howe MD [address] [place] [address] [place] [address] Social History Tobacco Use Types Packs/Day Years Used Date Smoking Tobacco: Never Assessed Estimated Date of Delivery Comme nts Yes 07/02/2025 Date entered levon or to episode creation Sex and Gender Information Value Date Recorded Sex Assigned at Not on file Legal Sex Female 2:11 PM OUTPATIENT PHLEBOTOMIST Gender Identity Not on file Sexual Orientation Not on file documented as of this encounter Miscellaneous Notes * Telephone Encounter - Fela Miller RN - 06/24/2025 2:54 PM CDT Araceli called [facility] to clarify pump instructions for C/S tomorrow: reviewed the following instructions from 06/13 visit with DORA Haley: Recommendations - Continue Control IQ X24 hrs - Keep U200 insulin in pump through labor & delivery - Start PP settings AM of scheduled C/S, keeping U200 insulin in pump - After fill pump with U100 and continue PP settings (in 06/13 chart note) - May stay in sleep mode overnight or not - pt preference - Schedule follow up with Dr. Hema Fragoso [facility] 4-6 weeks after - May follow up with MFM as needed from to Endo visit documented in this encounter Plan of Treatment Not on file documented as of this encounter Visit Diagnoses Not on filedocumented in this encounter
--- OUTSIDE RECORDS SUMMARY | 2025-06-24 16:06 | XMS_ITS | Clinical Summary ---
Author Organization [facility] Address Replaced by [facility] [place] [address] Care Team Providers Care Waxer Name Role Phone Lonnie Pond MD Primary Care Provider [phone] Allergies No known active allergies Medications Glucose Blood (FREESTYLE LITE) test strip FreeStyle Lite Test In Vitro StripTEST [id number] Active Active OMNIPOD 5 PACK MiscIndications:Un controlled type 1 diabetes mellitus with hyperglycemia (CMS/HCC HHS/HCC) CHANGE POD EVERY 72 HOURS 30 each 3 9 Active DEXCOM G6 WEIGHT CONTROL ENGINEER DeviceIndications: Uncontrolled type 1 diabetes mellitus with [...] Type 1 diabetes mellitus wit hout complication ([facility]) 03/30/2017 Resolved Problems Problem Noted Date Diagnosed [...] 179 <200 MG/DL 04/03/2020 3:28 PM CDT [facility] TRIGLYCERIDES 56 <150 MG/DL 04/03/2020 3:28 PM CDT [facility] HDL 65 >40.0 MG/DL 04/03/2020 3:28 PM CDT [facility] LDL (CALCULATED) 103(H) <100 MG/DL 04/03/2020 3:28 PM CDT [facility] NON HDL CHOLESTEROL 114 <130 MG/DL 04/03/2020 3:28 PM CDT [facility] CHOL/HDL RATIO 2.8 0.0 - 4.5 04/03/2020 3:28 PM CDT [facility] VLDL CALCULATION 11 5 - 55 MG/DL 04/03/2020 3:28 PM CDT [facility] LIPID INTERPRETATION 04/03/2020 3:28 PM CDT [facility] Comment: NIH CONCENSUS REPORT RECOMMENDATIONS: ADULT CHILD LOW RISK: CHOLESTEROL <200 <170 TRIGLYCERIDE <150 --- HDL >=60 --- LDL <100 <110 BORDERLINE: CHOLESTEROL 200-239 170-199 TRIGLYCERIDE 150-199 --- HDL 40-59 --- LDL 100-159 110-129 HIGH RISK: CHOLESTEROL >=240 >=200 TRIGLYCERIDE >=200 --- HDL <40 --- LDL >=160 >=130 04/03/2020 2:14 PM CDT us Naveen Bal MD LABORATORY Final Result [facility] [address] [place] [address], [place] [phone] * HEMOGLOBIN, GLYCOSYLATED (04/03/2020 1:51 PM CDT) HGB A1C [address] [place] 04/03/2020 1:51 PM CDT Naveen Bal MD LABORATORY Final Result [facility] [place] [address] [place] [address], from Last 3 Months or Most Recently Relevant to Health Maintenance Care Teams Waxer Relationship Specialty Start Date End Date Lonnie Pond MD [address] [place] [address] PCP - General INTERNAL MEDICINE 11/10/18
[2025-06-24 17:04] LABS: Hematocrit 37.0 % (37.0-47.0); Hemoglobin 12.6 g/dL (12.0-15.0); Mean Corpuscular HGB Conc 34.1 g/dl (32-36); Mean Corpuscular Hemoglobin 32.5 pg (26-34); Mean Corpuscular Volume 95.4 fl (80-100); Platelet Count Result 246 k/mm3 (150-375); Red Blood Count 3.88 M/mm3 (4.2-5.4); White Blood Count 7.5 K/mm3 (4.5-10.0)
[2025-06-24 17:29] LABS: Alanine Aminotransferase 21 U/L (6-35); Albumin Level 3.6 g/dL (3.5-5.1); Alkaline Phosphatase 203 U/L (38-126); Anion Gap 7 mmol/L (4-12); Aspartate Amino Transferase 27 U/L (14-36); Bilirubin,Total 0.3 mg/dL (0.2-1.3); Blood Urea Nitrogen 11 mg/dL (7-17); Calcium 9.3 mg/dL (8.4-10.2); Carbon Dioxide 21 mmol/L (22-30); Chloride 104 mmol/L (98-107); Estimated Glomerular Filt Rate > 60; Glucose 133 mg/dL (65-110); Potassium 4.0 mmol/L (3.4-5.0); Sodium 132 mmol/L (137-145); Total Protein 7.4 g/dL (6.3-8.2)
[2025-06-24 17:58] LABS: Syphilis IgG/IgM Antibody Non-Reactive (Nonreactive)
== END 2025-06-24 16:04 | disposition home or self-care (01) ==
LOC: ANHLAB 16:04
PROVIDERS: Visit Provider Obstetrics & Gynecology
DX: Z01.812 Encounter for preprocedural laboratory examination (principal)
CPT/HCPCS: 36415; 80053; 85027; 86593; 86850; 86900; 86901

== ENCOUNTER 2025-06-25 07:02 | Inpatient (IN) | payer BC, SELFPAY ==
[2025-06-25] VITALS (48 sets, daily range): BP systolic 104–149; BP diastolic 49–83; PULSE 73–104; RESP 12–18; TEMP 36.2–36.6; O2SAT 95–100; BMI 28.8
--- OUTSIDE RECORDS SUMMARY | 2025-06-25 07:10 | XMS_ITS | Clinical Summary ---
Author Organization [facility] Address [address] [place] [address] Care Team Providers Care Cloud Engagement Partner Name Role Phone Lonnie Pond MD Primary Care Provider [phone] Naveen Bal MD Unavailable [phone] Allergies No known active allergies Medications glucagon [...] t be different from the original. Patient's Roller Skater is Dr. Naveen Bal in [place], [place] (p) [phone] Problem Noted Date Diagnosed Date Nevus of [...] on file Legal Sex Female 9:01 PM COMPENSATION AND BENEFITS ANALYST Gender Identity Not on file Sexual Orientation Not on file Obstetrics History Para Term AB IAB SAB Ectopic Multiple Livin g Live Births 1 Date Outcome GA Total Labor Labor/2nd/3rd Weight Sex Type Anes PTL Erin A1 A5 Name Clin Current Last Filed Vital Signs Vital Sign Reading Time Taken Comments Blood Pressure 116/72 12/14/2024 11:32 AM COMPENSATION AND BENEFITS ANALYST Pulse 83 12/14/2024 11:32 AM COMPENSATION AND BENEFITS ANALYST Temperature 36.7 C (98.1 F) 12/14/2024 11:32 AM COMPENSATION AND BENEFITS ANALYST Respiratory Rate - - Oxygen Saturation - - Inhaled Oxygen Concentration - - Weight 69.7 kg (153 lb 9.6 oz) 12/14/2024 11:32 AM COMPENSATION AND BENEFITS ANALYST Height 170.2 cm (5' 7) 12/14/2024 11:32 AM COMPENSATION AND BENEFITS ANALYST Body Mass Index 24.06 12/14/2024 11:32 AM COMPENSATION AND BENEFITS ANALYST Plan of Treatment Health Maintenance Due Date [...] THYROID FUNCTION CASCADE Routine 12/14/2024 12:59 PM COMPENSATION AND BENEFITS ANALYST Type 1 diabetes mellitus with hyperglycemia (HCC) POCT HEMOGLOBIN A1C Routine 12/14/2024 1 1:43 AM COMPENSATION AND BENEFITS ANALYST Type 1 diabetes mellitus with hyperglycemia (HCC) [...] to Health Maintenance Results * Thyroid Function Hayes (12/14/2024 12:59 PM COMPENSATION AND BENEFITS ANALYST) TSH 0.47 0.30 - 4.20 mcIUnit/mL Blood 12/14/2024 12:5 9 PM COMPENSATION AND BENEFITS ANALYST 12/14/2024 8:39 PM COMPENSATION AND BENEFITS ANALYST Saloni Fragoso MD LAB BLOOD ORDERABLES Final Result [facility] [address] [place] [address] * POCT hemoglobin A1c (12/14/2024 11:43 AM COMPENSATION AND BENEFITS ANALYST) Hemoglobin A1C, POC 6.5 4.0 - 5.6 % Blood 12/14/2024 11:4 3 AM COMPENSATION AND BENEFITS ANALYST Saloni Fragoso MD POINT OF CARE TEST [...] BLOOD ORDERABLES Final Result Performing Organization Address [facility] de Phone Number [facility] [address] [facility] [place] [address] * Albumin Creatinine Ratio, Urine (06/04/2024 3:33 [...] URINE ORDERABLES Final Result Performing Organization Address [facility] de Phone Number [facility] [address] [facility] [place] [address] * (ABNORMAL) Lipid panel (06/04/2024 3:33 PM [...] MD LAB BLOOD ORDERABLES Final Result [facility] [address] [place] [address] from Last 3 Months or Most Recently Relevant to Health Maintenance Insurance [employer] ACCESS CHOICE [employer] ACCESS CHOICE Care Teams Cloud Engagement Partner Relationship Specialty Start Date End Date Lonnie Pond MD PCP - General 10/14/14 Naveen Bal MD Consulting Physician Endocrinology Diabetes & Metabolism 05/31/20
--- OUTSIDE RECORDS SUMMARY | 2025-06-25 07:11 | XMS_ITS | Clinical Summary ---
Author Organization [facility] Address [facility] [place] [address] Care Team Providers Care Motor And Generator Brush Cutter Name Role Phone Lonnie Pond MD Primary Care Provider [phone] Allergies No known active allergies Medications Glucose Blood (FREESTYLE LITE) test strip FreeStyle Lite Test In Vitro StripTEST [id number] Active Active OMNIPOD 5 PACK MiscIndications:Un controlled type 1 diabetes mellitus with hyperglycemia (CMS/HCC HHS/HCC) CHANGE POD EVERY 72 HOURS 30 each 3 9 Active DEXCOM G6 GOLD CUTTER DeviceIndications: Uncontrolled type 1 diabetes mellitus with [...] Type 1 diabetes mellitus wit hout complication ([facility]) 03/30/2017 Resolved Problems Problem Noted [...] 179 <200 MG/DL 04/03/2020 3:28 PM CDT [facility] TRIGLYCERIDES 56 <150 MG/DL 04/03/2020 3:28 PM CDT [facility] HDL 65 >40.0 MG/DL 04/03/2020 3:28 PM CDT [facility] LDL (CALCULATED) 103(H) <100 MG/DL 04/03/2020 3:28 PM CDT [facility] NON HDL CHOLESTEROL 114 <130 MG/DL 04/03/2020 3:28 PM CDT [facility] CHOL/HDL RATIO 2.8 0.0 - 4.5 04/03/2020 3:28 PM CDT [facility] VLDL CALCULATION 11 5 - 55 MG/DL 04/03/2020 3:28 PM CDT [facility] LIPID INTERPRETATION 04/03/2020 3:28 PM CDT [facility] Comment: NIH CONCENSUS REPORT RECOMMENDATIONS: ADULT CHILD LOW RISK: CHOLESTEROL <200 <170 TRIGLYCERIDE <150 --- HDL >=60 --- LDL <100 <110 BORDERLINE: CHOLESTEROL 200-239 170-199 TRIGLYCERIDE 150-199 --- HDL 40-59 --- LDL 100-159 110-129 HIGH RISK: CHOLESTEROL >=240 >=200 TRIGLYCERIDE >=200 --- HDL <40 --- LDL >=160 >=130 04/03/2020 2:14 PM CDT us Naveen Bal MD LABORATORY Final Result [facility] [address] [place] [address], [place] [phone] * HEMOGLOBIN, GLYCOSYLATED (04/03/2020 1:51 PM CDT) HGB A1C [address]), [place] 04/03/2020 1:51 PM CDT Naveen Bal MD LABORATORY Final Result [facility] [place] [address] [place] [address], from Last 3 Months or Most Recently Relevant to Health Maintenance Care Teams Motor And Generator Brush Cutter Relationship Specialty Start Date End Date Lonnie Pond MD [address] [place] [address] PCP - General INTERNAL MEDICINE 11/10/18
--- OUTSIDE RECORDS SUMMARY | 2025-06-25 07:11 | XMS_ITS | Encounter Summary ---
Author Organization [facility] Address [address] [place] [address] Care Team Providers Care Customer Retention Specialist Name Role Phone Unavailable Primary Care Provider Unavailabl e Reason for Visit * Reason Onset Date Comments Diabetes 06/24/2025 Encounter Details Date Type Department Care Team (Late st Contact Info) Description 06/24/2025 Telephone [facility] Maternal and Medicine - [address] [place] [address] Chepe Howe MD [address] [place] [address] [place] [address] Diabetes Social History Tobacco Use Types Packs/Day Years Used Date Smoking Tobacco: Never Assessed Estimated Date of Delivery Comme nts Yes 07/02/2025 Date entered levon or to episode creation Sex and Gender Information Value Date Recorded Sex Assigned at Not on file Legal Sex Female 2:11 PM COMPLIANCE CONSULTANT Gender Identity Not on file Sexual Orientation Not on file documented as of this encounter Miscellaneous Notes * Telephone Encounter - Fela Miller RN - 06/24/2025 2:54 PM CDT Araceli called [facility] to clarify pump instructions for C/S tomorrow. She is scheduled for C/S at [facility] in [place] at 0900 tomorrow 06/25. She asks if she should wear her pump throughout her C/S andif it's ok for her to not eat prior to surgery as instructed by her OB. Provided the following answers - yes, wear pump through C/S. Yes, ok to not eat after midnight for 0900 C/S. Detailed Delivery & instructions reviewed with pt during 06/13 visit with DORA Haley and sent via [employer] message. Confirmed with Araceli today that she can still see that messagewith PP instructions. She shares that she has her PP settings programed in her pump, not started yet (as instructed.) She has an Endo appt, not able to be seen until August; Araceli aware she can contact [facility] for assistance from delivery to Endo visit. documented in this encounter Plan of Treatment Not on file documented as of this encounter Visit Diagnoses Not on filedocumented in this encounter
--- OUTSIDE RECORDS SUMMARY | 2025-06-25 07:11 | XMS_ITS | Clinical Summary ---
Author Organization [facility] Address [address] [place] [address] Phone Care Team Providers Care Store Shopper Name Role Phone Unavailable Primary Care Provider [...] days left Active vits15/iron/f olic/dss ( VIT 41-LIER-TLZEY -DSS ORAL) Take by mouth. Acti ve [...] Type Department Care Team Description 06/24/2025 Telephone [facility] [place] [facility] [address] [place] [address] Chepe Howe MD Diabetes 06/24/2025 Telephone [facility] [address] [facility] [address] [address] [address] [place] [address] Verena Duke MD Question 06/18/2025 Chart Note [facility] [address] [facility] [address] [address] [address] [place] [address] Mae Kline MD Diabetes 06/14/2025 3:41 PM CDT - 06/14/2025 11:59 PM CDT Hospital Encounter [facility] Maternal and Ground Floor S [facility] [address] [place] [phone] Nba Dudley MD Discharge Disposition: Home or Self Care 06/13/2025 9:45 AM CDT Video Visit [facility] [place] [facility] [address] [place] [address] Estefania Alva NP complicated by pre-existing type 1 diabetes in third trimester (Primary Dx); 37 weeks gestation of 06/13/2025 Chart Note [facility] [place] [facility] [address] [place] [address] Fela Miller RN Diabetes 06/11/2025 2:54 PM CDT - 06/11/2025 11:59 PM CDT Hospital En[facility] Ground Floor [address] [place] [address] Nba Dudley MD Discharge Disposition: Home or Self Care 06/11/2025 2:45 PM CDT - 06/11/2025 11:59 PM CDT Hospital Encounter [facility] Ground Floor [address] [place] [address] Nba Dudley MD Discharge Disposition: Home or Self Care 06/07/2025 2:36 PM CDT - 06/07/2025 11:59 PM CDT Hospital Encounter [facility] M[facility] and Ground Floor [address] [place] [address] Nba Dudley MD Discharge Disposition: Home or Self Care 06/06/2025 Chart Note [facility] [address] [place] [address] Fela Rivera MD Diabetes 06/04/2025 2:33 PM CDT - 06/04/2025 11:59 PM CDT Hospital Encounter [facility] Maternal and Ground Floor [address] [place] [address] Nba Dudley MD Discharge Disposition: Home or Self Care 05/31/2025 2:42 PM CDT - 05/31/2025 11:59 PM CDT Hospital [facility] Ground [facility] [address] [place] [phone] Pretty Fishman MD Discharge Disposition: Home or Self Care 05/31/2025 Telephone [facility] [place] [facility] [address] [place] [address] Mae Kline MD Diabetes 05/29/2025 Chart Note [facility] [address] [place] [phone] Estefania Alva NP Diabetes 05/28/2025 2:33 PM CDT - 05/28/2025 11:59 PM CDT Hospital Encounter [facility] and Ground Floor [address] [place] [phone] Pretty Fishman MD Discharge Disposition: Home or Self Care 05/24/2025 2:51 PM CDT - 05/24/2025 11:59 PM CDT Hospital [facility] M[facility] Ground Floor [address] [place] [place] [address] Pretty Fishman MD Discharge Disposition: Home or Self Care 05/23/2025 9:00 AM CDT Video Visit [facility] [place] [facility] [address] [place] [address] Estefania Alva NP complicated by pre-existing type 1 diabetes in third trimester (Primary Dx); 34 weeks gestation of 05/23/2025 Chart Note [facility] [place] [facility] [address] [place] [phone] Estefania Alva NP Diabetes 05/21/2025 2:41 PM CDT - 05/21/2025 11:59 PM CDT [facility] Ground [facility] [address] [place] [address] Pretty Fishman MD Discharge Disposition: Home or Self Care 05/17/2025 2:36 PM CDT - 05/17/2025 11:59 PM CDT Hospital Encounter [facility] Ground Floor [address] [place] [address] Pretty Fishman MD Discharge Disposition: Home or Self Care 05/15/2025 External Device Data STL ABSTRACTION Provider, Abstract 05/14/2025 2:56 PM CDT - 05/14/2025 11:59 PM CDT Hospital Encounter [facility] M[facility] Ground Floor [address] [place] [address] Pretty Fishman MD Discharge Disposition: Home or Self Care 05/14/2025 2:56 PM CDT - 05/14/2025 11:59 PM CDT Hospital [facility] Ground Floor [address] [place] [address] Pretty Fishman MD Discharge Disposition: Home or Self Care 05/14/2025 External Device Data STL ABSTRACTION Provider, Abstract 05/10/2025 3:26 PM CDT - 05/10/2025 11:59 PM CDT Hospital [facility] M[facility] Ground Floor [address] [place] [address] Pretty Fishman MD Discharge Disposition: Home or Self Care 05/09/2025 Chart Note [facility] [place] [facility] [address] [facility] [facility] [place] [address] Estefania Alva NP Diabetes 05/07/2025 3:15 PM CDT - 05/07/2025 11:59 PM CDT Hospital Encounter [facility] M[facility] Ground Floor [address] [place] [address] Pretty Fishman MD Discharge Disposition: Home or Self Care 04/30/2025 External Device Data STL ABSTRACTION Provider, Abstract 04/25/2025 9:00 AM CDT Video Visit [facility] [place] [facility] [address] [place] [phone] Estefania Alva NP complicated by pre-existing type 1 diabetes in third trimester (Primary Dx); 30 weeks gestation of 04/25/2025 Chart Note [facility] [place] [facility] [address] [place] [address] Estefania Alva NP Diabetes 04/18/2025 3:35 PM CDT - 04/18/2025 11:59 PM CDT Hospital Encounter [facility] Maternal and Ground Floor S [facility] [address] [place] [address] Mae Kline MD Discharge Disposition: Home or Self Care 04/17/2025 Chart Note [facility] [address] [place] [phone] Camryn Perla CNM Diabetes 04/16/2025 External Device Data STL ABSTRACTION Provider, Abstract 03/28/2025 11:15 AM CDT Video Visit [facility] [place] [facility] [address] [place] [address] Estefania Alva NP complicated by pre-existing type 1 diabetes in second trimester (Primary Dx); 26 weeks gestation of 03/28/2025 Chart Note [facility] [place] [facility] [address], [place] [phone] Estefania Alva NP Diabetes from Last 3 Months Social History Tobacco Use Types Packs/Day Years Used Date Smoking Tobacco: Never Assessed Estimated Date of Delivery Comme nts Yes 07/02/2025 Date entered levon or to episode creation Sex and Gender Information Value Date Recorded Sex Assigned at Not on file Legal Sex Female 2:11 PM CRITICAL CARE PHYSICIAN ASSISTANT Gender Identity Not on file Sexual Orientation Not on file Last Filed Vital Signs Vital Sign Reading Time Taken Comments Blood Pressure - - Pulse - - Temperature - - Respiratory Rate - - Oxygen Saturation - - Inhaled Oxygen Concentration - - Weight 71.7 kg (158 lb) 01/02/2025 1:55 PM CRITICAL CARE PHYSICIAN ASSISTANT Height 170.2 cm (5' 7) 01/02/2025 1:55 PM CRITICAL CARE PHYSICIAN ASSISTANT Body Mass Index 24.75 01/02/2025 1:55 PM CRITICAL CARE PHYSICIAN ASSISTANT Plan of Treatment Health Maintenance Due Date [...] RAMIREZ Study Date: 06/14/2025 3:50pm Pat. NO: [id number] Referring MD: WILTON KIRKLAND MD Site: [facility] Protective Signal Installer Helper: : 1995 Age: 29 ----- INDICATION ----- Diabetes type I CODING ----- Diagnoses Z3A.37: Weeks of gestation O24.013: Pre-existing type 1 diabetes mellitus, in O09.893: Supervision of other high risk pregnancies Procedures 35239: NST/ monitoring 69363: Limited 1 or more - VIVEK, FHR, [...] Note Vale Stephenson MD - 06/14/2025 MODIFIED BP STUDY ----- Name:Angélica RAMIREZ Date:06/14/2025 3:50pm Pat. NO: [id number] MD:WILTON KIRKLAND [facility]1995Age:29 ----- INDICATION ----- Diabetes type I CODING ----- Diagnoses Z3A.37: Weeks of gestation O24.013: Pre-existing type 1 diabetes mellitus, inpregnancy O09.893: Supervision of other high riskpregnancies Procedures 71771: NST/ monitoring 99527: Limited 1 or more - VIVEK, FHR, position(modifier 59 for MBPP) HISTORY ----- OB History 1 MATERNAL ASSESSMENT ----- Physical Exam Weight 72 kg. BMI 24.75 kg/m . Blood ttfkipmi961/70 mmHg. Heart rate 91 bpm METHOD ----- EFM, Transabdominal ultrasound examination. View: Good view ----- Hammond . Number of fetuses: 1 DATING ----- GA by prior [id number] w + 3 d APPLE by prior [...] RAMIREZ Study Date: 06/11/2025 3:28pm Pat. NO: [id number] Referring MD: WILTON KIRKLAND MD Site: [facility] Protective Signal Installer Helper: : 1995 Age: 29 ----- INDICATION ----- Diabetes type I CODING ----- Diagnoses Z3A.37: Weeks of gestation O24.013: Pre-existing type 1 diabetes mellitus, in O09.893: Supervision of other high risk pregnancies Procedures 99071: NST/ monitoring HISTORY ----- OB History 1 [...] Procedure Note Nba Dudley MD - 06/11/2025 [facility] NST ----- Pat. Name:Angélica RAMIREZ Date:06/11/2025 3:28pm Pat. NO: [id number] MD:WILTON KIRKLAND MD [facility]1995Age:29 ----- INDICATION ----- Diabetes type I CODING ----- Diagnoses Z3A.37: Weeks of gestation O24.013: Pre-existing type 1 diabetes mellitus, inpregnancy O09.893: Supervision of other high riskpregnancies Procedures 68058: NST/ monitoring HISTORY ----- OB History 1 MATERNAL ASSESSMENT ----- Physical Exam Blood pressure 145/72 mmHg. Heart rate 87 bpm Repeat BP 131/71 METHOD ----- EFM ----- [place] . Number of fetuses: 1 DATING ----- GA by prior [id number] w + 0 d APPLE by prior [...] RAMIREZ Study Date: 06/11/2025 2:48pm Pat. NO: [id number] Referring MD: WILTON KIRKLAND MD Site: [facility] Protective Signal Installer Helper: Pierre Negron RDMS : 1995 Age: 29 ----- INDICATION ----- Diabetes type I CODING ----- Diagnoses Z3A.37: Weeks of gestation O24.013: Pre-existing type 1 diabetes mellitus, in O09.893: Supervision of other high risk pregnancies Procedures 71921: Ultrasound, uterus, real time with image documentation, [...] 9 lb 0 oz EFW by Hadlock ([id number]) Extremities / Bony Struc Biometry: FL / [...] and date of were verified by the dry kiln burner prior to the exam IMPRESSION ----- Hammond [...] Pat. Name:Angélica RAMIREZ Date:06/11/2025 2:48pm Pat. NO: [id number] MD:WILTON KIRKLAND MD [facility]Pierre Negron RDMS :1995Age:29 ----- INDICATION ----- Diabetes type I CODING ----- Diagnoses Z3A.37: Weeks of gestation O24.013: Pre-existing type 1 diabetes mellitus, inpregnancy O09.893: Supervision of other high riskpregnancies Procedures 30020: Ultrasound, uterus, real time withimage documentation, follow up, transabdominal approach per fetus HISTORY ----- OB History 1 MATERNAL ASSESSMENT ----- Physical Exam Weight 72 kg. BMI 24.75 kg/m METHOD ----- Transabdominal ultrasound examination ----- Hammond . Number of fetuses: 1 DATING ----- GA by prior [id number] w + 0 d APPLE by prior [...] 9 lb 0 oz EFW by Hadlock ([id number]) Extremities / Bony Struc Biometry: FL / [...] and date of were verified by the dry kiln burner prior tothe exam IMPRESSION ----- Hammond @ [...] Re sult from Last 3 Months Insurance [facility] BLUE ACCESS CHOICE
--- OUTSIDE RECORDS SUMMARY | 2025-06-25 07:11 | XMS_ITS | Encounter Summary ---
Author Organization [facility] Address [address] [place] [address] Care Team Providers Care Ball Machine Operator Name Role Phone Unavailable Primary Care Provider Unavailabl e Reason for Visit * Reason Onset Date Comments Question 06/24/2025 Encounter Details Date Type Department Care Team (Late st Contact Info) Description 06/24/2025 Telephone [facility] Maternal Medicine [address] [place] [address] Verena Duke MD [address] [facility] [address] [place] [address] Question Social History Tobacco Use Types Packs/Day Years Used Date Smoking Tobacco: Never Assessed Estimated Date of Delivery Comme nts Yes 07/02/2025 Date entered levon or to episode creation Sex and Gender Information Value Date Recorded Sex Assigned at Not on file Legal Sex Female 2:11 PM GEAR GENERATOR SET UP OPERATOR Gender Identity Not on file Sexual [...]
--- OUTSIDE RECORDS SUMMARY | 2025-06-25 07:11 | XMS_ITS | Clinical Summary ---
Author Organization [facility] Address [address] [place] [address] Care Team Providers Care Quality Control Projectionist Name Role Phone Unavailable Primary Care Provider Unavailabl e Source Comments [facility],non-owned Affiliates and Associated Physician Practices is amultiple site organization consisting of ambulatory clinics and hospital sitesin [place], [place], [place] and [place]. This disclosure is being madepursuant to the Care Everywhere program and may not contain all information available regarding this patient. Last updated 18.[facility] Allergies No known active allergies Social History Tobacco Use Types Packs/Day Years Used Date Smoking Tobacco: Never Assessed Estimated Date of Delivery Comme nts Yes 07/02/2025 Based on last me nstrual period of 09/25/2024 Sex and Gender Information Value Date Recorded Sex Assigned at Not on file Legal Sex Female 11:15 AM DISPATCH SUPERVISOR Gender Identity Not on file Sexual [...]
[2025-06-25] MEDS: ACETAMINOPHEN 500 MG TABLET 1000 MG PO ×3 (07:52→21:34)
[2025-06-25] MEDS: ONDANSETRON INJ 4 MG/2 ML VIAL IV PUSH ×2 (07:52→17:49)
[2025-06-25] MEDS: FAMOTIDINE 20 MG/2 ML VIAL IV PUSH (07:52)
[2025-06-25] MEDS: LACTATED RINGERS 1,000 ML 125 ML IV CONT ×2 (07:53→08:26)
[2025-06-25] MEDS: ceFAZolin 2 GM in SODIUM CHLORIDE 0.9% IV 50 ML 100 ML IVPB (07:54)
--- NOTE | 2025-06-25 08:04 | LDADM ---
This patient, Araceli Nicole, was admitted to Labor/Delivery/Recovery 119 on 06/25/25 at 07:02. Plans for section, pain management and were discussed with patient. Patient/family oriented to hospital policies and general routines including ID bracelet, bed and alarms, visiting hours, pain management, procedures, bathroom and other care routines, personal items, smoking policy, room service/diet and guest tray routines, security routines, and visiting hours. Patient/Family are encouraged to report perceived risks to care and to ask questions if they do not understand what they are told or what they should do. See OBIX for further documentation.
--- NOTE | 2025-06-25 08:08 | P.PNAN_ITS ---
Anes - Initial Pre Proc Eval Procedure: Operation Date: 06/25/25 09:00 Proposed Procedures p Section - Arsalan Strong MD Date/Time: 06/25/25 08:08 Surgeon: Arsalan Strong MD Pre Op Diagnosis: C SECTION Patient Data Age: 29 Gender: F Height: 1.73 m Weight: 86 kg Last Vital Signs Pulse 91 06/25/25 08:01 BP 125/76 06/25/25 08:01 O2 Del Method Room Air 06/25/25 07:57 Allergies Allergy/AdvReac Type Severity Reaction Status Date / Time No Known Allergies Allergy Verified 06/21/25 15:23 Home Medications ?Medication ?Instructions ?Recorded ?Confirmed ?Type insulin lispro 100 unit/mL 1 sliding scale dose subcut 11/22/24 06/21/25 History subcutaneous cartridge USEASDIRECTD aspirin 81 mg tablet,delayed 81 mg PO DAILY 03/20/25 0 06/21/25 History release (Adult Low Dose Aspirin) docosahexaenoic acid 200 mg mg PO 03/20/25 06/21/25 Hi story capsule ( DHA) RSVPreF3 antigen-AS01E 0.5 ml IM ONCE #1 ea 05/16/2 5 06/21/25 Rx adjuvant(PF) 120 mcg/0.5 mL IM suspension, kit Patient hx anesthesia problems: none Family hx anesthesia problems: none Results Review: All pre-operative results and documents have been reviewed as part of the pre- operative evaluation. [facility] Past Medical History Medical History Diabetes Surgical History Surgical History H/O wisdom tooth extraction Family History Family History Father Hypertension Grandparent Lung cancer Mother Forman syndrome Other Breast cancer Social History Social History Smoking status: Never smoker Alcohol intake: never Substance use: never Substance use type: does not use Do You Feel Safe in your Home?: Yes Lack of Transportation: No Lack of Food: Never True Current Housing: I Have Housing Concerned About Future Housing: No Difficulty Paying Gas/Electric Bills: No Difficulty Paying for Meds: No Currently Unemployed: No Education: Bachelor's Degree Difficulty w/ Childcare or Family Care: No Spiritual care concerns: No Anes - Eval Final PreProcedure Day of Procedure 06/25/25 08:08 Patient weight: obese Heart: regular rate and rhythm Lungs: clear to auscultation and normal air movement Airway: Mallampati scale class II Neurological: alert and oriented Last oral intake: >/= 8 hours ASA classification: III Emergent: no Anesthetic plan: proceed Anesthesia type and monitoring: regional spinal and standard monitoring Results Review: All pre-operative results and documents have been reviewed as part of the pre-op erative evaluation. Informed Consent: The patient's anesthetic plan and its attendant risks and benefits were discussed with the patient/family/POA. Questions were solicited and answers provided to the satisfaction of the patient/family/POA.
--- NOTE | 2025-06-25 08:34 | PM.IMHP ---
H&P: HPI History of Present Illness Date/Time: 06/25/25 08:34 Chief Complaint: Breech presentation Narrative: 29 y/o G1 at 39 weeks admitted for primary cesearean section for persistent breech presentation. course significant for Class C DM, controlled with insulin pump, managed by MFM and regulatory specialist. LGA. She was informed of delivery options for breech presentation and risk benefit of versus attempted vaginal breech delivery. She was recommended for primary section which she agrees to. She has been instructed regarding pre and post op insulin pump management. Review of Systems Review of Systems: All systems reviewed & are unremarkable except as noted in HPI and below Constitutional: Constitutional: Reports no additional constitutional complaints and Denies headache(s) Eyes: Eyes: Denies spots in vision ENT: Reports system reviewed and no additional complaints, except as documented and Denies headache(s) Cardiovascular: Cardiovascular: Denies chest pain and Denies dyspnea Respiratory: Respiratory: Denies dyspnea Gastrointestinal: Gastrointestinal: Reports no additional gastrointestinal complaints Genitourinary: Genitourinary: Reports amenorrhea Musculoskeletal: Musculoskeletal: Reports no additional musculoskeletal complaints Integumentary/Breasts: Skin/Breast: Denies breast mass and Denies rash Neurologic: Denies headache(s) Psychiatric: Psychiatric: Reports no additional psychiatric complaints PMFSH Past Medical History Medical History Diabetes Surgical History Surgical History H/O wisdom tooth extraction Family History Family History Father Hypertension Grandparent Lung cancer Mother Forman syndrome Other Breast cancer Social History Social History Smoking status: Never smoker Alcohol intake: never Substance use: never Substance use type: does not use Do You Feel Safe in your Home?: Yes Lack of Transportation: No Lack of Food: Never True Current Housing: I Have Housing Concerned About Future Housing: No Difficulty Paying Gas/Electric Bills: No Difficulty Paying for Meds: No Currently Unemployed: No Education: Bachelor's Degree Difficulty w/ Childcare or Family Care: No Spiritual care concerns: No Meds Home Medications and Allergies Home Medications ?Medication ?Instructions ?Recorded ?Confirmed ?Type insulin lispro 100 unit/mL 1 sliding scale dose subcut 11/22/24 06/21/25 History subcutaneous cartridge USEASDIRECTD aspirin 81 mg tablet,delayed 81 mg PO DAILY 03/20/25 06/21/25 History release (Adult Low Dose Aspirin) docosahexaenoic acid 200 mg mg PO 03/20/25 06/21/25 History capsule ( DHA) RSVPreF3 antigen-AS01E 0.5 ml IM ONCE #1 ea 05/16/25 06/21/25 Rx adjuvant(PF) 120 mcg/0.5 mL IM suspension, kit Allergies Allergy/AdvReac Type Severity Reaction Status Date / Time No Known Allergies Allergy Verified 06/25/25 13:26 Vital Signs Vital Signs - 24 hr 06/25/25 07:56 06/25/25 07:57 06/25/25 08:01 Pulse Rate 95 91 Blood Pressure 135/83 125/76 Oxygen Delivery Room Air Exam Const: General: no acute distress Eyes: General: appearance normal, both eyes and all related structures Resp: Effort & Inspection: normal respiratory effort Cardio: Rate: regular rate GI: Other: Gravid no fundal tenderness no right upper quadrant pain Skin: General skin exam: no rashes or lesions noted Neuro: Cognition (Neuro): normal cognition Extrem: General: normal to inspection Psych: Mental Status: mental status grossly normal Assessment and Plan Assessment and plan (1) Breech presentation: Code(s): O32.1XX0 - Maternal care for breech presentation, not applicable or unspecified Status: Acute Assessment and Plan: Will perform primary section. She has been informed of risk/benefit and risk of labor and agrees with primary section. (2) Type 1 diabetes mellitus affecting in third trimester, antepartum: Code(s): O24.013 - Pre-existing type 1 diabetes mellitus, in , third trimester Status: Acute Assessment and Plan: Continue with insulin pump instructions per MFM. Patient comfortable with instruction.
[2025-06-25] MEDS: SIMETHICONE 80 MG TAB.CHEW PO ×2 (12:06→15:49)
[2025-06-25] MEDS: LIDOCAINE 5% PATCH 1 PATCH TRANSDERM (12:06)
[2025-06-25] MEDS: OXYTOCIN 30 UNITS/NS 500 ML 30 UNITS/500 ML BAG 125 UNITS IV CONT (12:17)
--- NOTE | 2025-06-25 14:44 | OBPPTRN ---
Patient transferred to post room #286 via stretcher. Support person present. Oriented to unit, room, information board, rooming in, admission packet and security measures. Patient verbalizes understanding.
--- NOTE | 2025-06-25 15:30 | PC.NURSE ---
Breast pump provided due to [ transfer to [facility] NICU]. Instructions given on cleaning, care, usage, that there should be no pain, pumping schedule for milk production, collection, and storage of human milk. Patient was assessed for correct placement, flange size (21mm), to pump for adequate milk production every 3 hours (8 times in 24 hours) 1-2 times at night. She has a Spectra pump at home for future use but is provided with a hospital pump now.?Mother voiced understanding of the education shared along with mom/baby guide and pumping/cleaning pump/hands on pumping handouts for additional resource information. She has syringes and patient labels for storing pumped milk. Reported to the Primary RN.
[2025-06-25] MEDS: KETOROLAC 15 MG/ML VIAL (*BKC) IV PUSH ×2 (15:50→21:34)
--- NOTE | 2025-06-25 16:03 | W.PM.OBCSD ---
OB - Delivery Note Procedure Delivery date: 06/26/25 Pre-op diagnosis: Breech Presentation, Macrosomia and Other (pregestational diabetes) Post-op Diagnosis: Same Induction method: None Prior to decision for section, ACOG/SMFM labor guidelines were considered and discussed with the patient and staff. Decision made to proceed with the section.: Yes Procedure Performed: Primary Surgeon: Arsalan Strong MD Anesthesia type: Epidural Description of Procedure/Findings: Findings - male in 9 lb 14 oz Apgars 5 8 delivery time 10:11 a.m. Normal uterus and fallopian tubes and ovaries. After informed consent, risks and benefits of the procedure was discussed with the patient. The patient was taken to the operating room. Multiple attempts at a spinal were made and unable to achieve analgesia and then epidural was placed. Adequate analgesia was noted. She was placed in the dorsal lithotomy position with leftward tilt. After the prior placed epidural anesthesia was found to be adequate, she was then prepped and draped in the usual sterile fashion. A Pfannenstiel skin incision was made with a scalpel and carried through to the underlying layer of fascia. The fascia was then nicked in the midline, extending bilaterally. The fascia was dissected off the rectus muscles bluntly and sharply, superiorly and inferiorly. The rectus muscles were in the midline, and peritoneum was identified and entered bluntly. The pelvic organs were visualized. The bladder blade was then inserted. The low transverse uterine incision was made, the amniotic cavity entered, thin meconium stained fluid noted. the incision was extended with bilateral index fingers in a crescent-shaped fashion. Bandage scissors were used to extend the incision. The feet were delivered and the rest of the infant was delivered. The legs were delivered and the arms were delivered in a Pinard fashion the head was delivered in a flexed fashion.The nose and mouth suctioned. The cord was clamped twice and cut. The infant was then handed off to the awaiting pediatric staff. The placenta was then delivered manually. The uterine cavity was sponge curetted. The uterus was then exteriorized. The uterine incision was then closed with 0 vicryl in a running locked fashion. Hemostasis noted. A second layer of 0 vicryl was used in an imbricating fashion. The posterior cul-de-sac was irrigated. The uterus was then returned to the abdomen. Bilateral gutters were cleared off all clots and debris. The uterine incision was noted to be hemostatic. Interceed placed on uterine incision and vertically on front of uterus. The muscle bellies were inspected and noted to be hemostatic. The subfascial layer was noted to be hemostatic, and the fascia was closed with 0 Vicryl in a running fashion. The subcutaneous layer was then approximated with 3-0 Vicryl. The skin was closed with 4-0 Vicryl in a subcuticular fashion. Dermabond was applied to incision. All instruments, needle, and lap counts were correct x3. The patient was taken to the recovery room in stable condition. Drains: No Packing: No Pathology: Yes ( Placenta and cord) Complications: No immediate complications Condition: Stable Disposition: Floor Baby Date of : 06/25/25 Time of : 10:11 Gestational Age by Date: 39 Infant gender: Male Weight (pounds): 9 Weight (ounces): 14 presentation: breech (footling) Placenta delivery description: Manual Removal Cord Vessel Description: 3 Vessels score one minute: 5 score five minutes: 8
[2025-06-25] MEDS: DEXTROSE 5%/0.45% SOD CHL 1,000 ML 125 ML IV CONT (16:26)
[2025-06-25] MEDS: DOCUSATE SODIUM 100 MG CAPSULE PO (16:28)
[2025-06-26 00:10] VITALS: BP 113/63; PULSE 83; RESP 16; TEMP 36.4; O2SAT 98
[2025-06-26] MEDS: KETOROLAC 15 MG/ML VIAL (*BKC) IV PUSH (03:55)
[2025-06-26] MEDS: ACETAMINOPHEN 500 MG TABLET 1000 MG PO ×4 (03:55→23:12)
[2025-06-26 04:41] LABS: Hematocrit 29.4 % (37.0-47.0); Hemoglobin 9.9 g/dL (12.0-15.0); Immature Granulocyte Percent A 0.4 % (0-0.5); Lymphocytes Absolute Auto 1.42 K/mm3 (0.9-3.2); Mean Corpuscular HGB Conc 33.7 g/dl (32-36); Mean Corpuscular Hemoglobin 32.8 pg (26-34); Mean Corpuscular Volume 97.4 fl (80-100); Nucleated Red Blood Cells Absolute Auto 0.000 K/mm3 (0.0-0.012); Nucleated Red Blood Cells Perc 0.0 % (0.0-0.2); Platelet Count Result 193 k/mm3 (150-375); Red Blood Count 3.02 M/mm3 (4.2-5.4); White Blood Count 10.1 K/mm3 (4.5-10.0)
[2025-06-26 07:55] VITALS: BP 115/68; PULSE 85; RESP 16; TEMP 37.2; O2SAT 98
--- NOTE | 2025-06-26 07:59 | WPDANLDPN2 ---
Anes-Prog Note L&D Date/Time: 06/26/25 07:59 Comfortable throughout: section Neuraxial method: spinal Epidural/Spinal procedure site: tender Neuro status: Neuro function grossly intact. Cardiovascular status: normal Respiratory status: normal Airway patency: baseline Mental status: baseline Post-Op hydration status: normal Vital Signs: Last Vital Signs Temp 97.5 F L 06/26/25 00:10 Pulse 83 06/26/25 00:10 Resp 16 06/26/25 00:10 BP 113/63 06/26/25 00:10 Pulse Ox 98 06/26/25 00:10 O2 Del Method Room Air 06/25/25 20:20 Pain score (VAS): 0/10 I/O: Intake & Output 06/25/25 06/25/25 06/26/25 15:59 23:59 07:59 Intake Total 1000 240 250 Output Total 267 780 8371 Balance 195 90 -900 Post-procedural complaints: none Patient feedback: Patient satisfied with anesthetic care.
--- NOTE | 2025-06-26 08:00 | WPDANLDNPN2 ---
Anes-Prog Note L&D-Neuraxial Date/Time: 06/26/25 08:00 Patient feedback: Patient satisfied with post-operative pain management.
--- NOTE | 2025-06-26 09:50 | PC.NURSE ---
Introductions were made, then consulted with patient to assess if there are any needs related to using her breast pump. Per mother she is using her breast pump consistently but is not able to pump very much. Encouraged mother to call out the next time she uses the breast pump so the RN or CLC could check the pump and flange. Mother is going out on a pass today to see her baby in the NICU. Resources provided for inpatient and outpatient services with the feeding sheet, mom/baby guide and name written on the communication board. Mother voiced understanding of information and will call if there is a request for assistance. Reported to the Primary RN.
[2025-06-26] MEDS: SIMETHICONE 80 MG TAB.CHEW PO ×2 (10:23→16:46)
[2025-06-26] MEDS: MULTIVIT/MIN/PREN/FOL AC/IRON TABLET 1 TAB PO (10:24)
[2025-06-26] MEDS: DOCUSATE SODIUM 100 MG CAPSULE PO ×2 (10:24→16:46)
[2025-06-26] MEDS: oxyCODONE HCL (*CRX) 5 MG TAB IR PO ×2 (10:25→16:48)
[2025-06-26] MEDS: IBUPROFEN 600 MG TABLET PO ×3 (10:25→23:12)
--- NOTE | 2025-06-26 10:30 | PC.NURSE ---
Patient left unit via wheelchair to personal car to visit at [facility] accompanied by . Patient knows that she is to be back on the unit on or before 1630 and that she is not to take any medications, over the counter or otherwise, while she is outside of the hospital.
--- NOTE | 2025-06-26 11:12 | P.PNOB_ITS ---
OB - PN: Subj Subjective Date/time seen: 06/26/25 11:12 Interval history: She denies flatus. Patient comments: pain well controlled and tolerating diet [place] baby status: other OB - PN: Obj Data Labs 06/26/25 03:54 Labs: Laboratory Results - last 24 hr 06/26/25 03:54 WBC 10.1 H RBC 3.02 L Hgb 9.9 L Hct 29.4 L MCV 97.4 MCH 32.8 MCHC 33.7 RDW 12.9 Plt Count 193 MPV 10.7 H Immature Gran % (Auto) 0.4 Neut % (Auto) 77.4 H Lymph % (Auto) 14.1 L [place] % (Auto) 7.5 Eos % (Auto) 0.3 Baso % (Auto) 0.3 Lymph # (Auto) 1.42 [place] # (Auto) 0.8 H Eos # (Auto) 0.0 Baso # (Auto) 0.0 Abs Immat Gran (auto) 0.04 H Absolute Neuts (auto) 7.8 H Absolute Nucleated RBC 0.000 Nucleated RBC % 0.0 OB - PN A/P Assessment and Plan (1) Delivery by section: Status: Acute Assessment and Plan: 1. Doing well. Routine post care. Pass to visit baby. (2) Type 1 diabetes mellitus affecting in third trimester, antepartum: Code(s): O24.013 - Pre-existing type 1 diabetes mellitus, in , third trimester Status: Acute Assessment and Plan: Doing well with new dosing. Continue plan per MFM. Time Spent With Patient Time: Total time spent is greater than 50% in coordination of care (as documented) at patient's floor/unit and/or counseling patient: Exam 2 Const: General: comfortable and no acute distress Resp: Effort & Inspection: normal respiratory effort GI: Other: incision intact fundus at umb firm Extrem: General: normal to inspection (nontender) Psych: Mental Status: mental status grossly normal
--- NOTE | 2025-06-26 11:16 | P.DS_ITS ---
DS: Admitting Diagnosis Discharge Date 06/27/25 Admitting Diagnosis Persistent breech presentation DS: Discharge Diagnosis Discharge Diagnosis (1) Diabetes in : Code(s): O24.919 - Unspecified diabetes mellitus in , unspecified trimester Status: Acute (2) delivery delivered: Code(s): O82 - Encounter for delivery without indication Status: Acute OB - DS: Summary Hospital Course Hospital Course: She was admitted for primary section due to persistent breech presentation. She had an uncomplicated section. She did well . On day one she was tolerating regular food and ambulating without problems. She had flatus and had adequate pain control. She was given a pass on post op day one to visit her baby in [place]. She did well. She was discharged to home on post op day 2. OB Procedures : NST and Ultrasound OB Procedures Intrapartum: OB Procedures: : None Peripartum Data Delivery Method: Section Procedures: Procedures Operation Date: 06/25/25 09:00 Actual Procedure Side Surgeon p Section Not Applicable Arsalan Strong MD complications: none Status at Discharge Functional status at discharge: independent ambulation Time Spent with Patient Time attestation: Total time spent providing and/or coordinating discharge services: Exam Const: General: cooperative Orientation/consciousness: oriented to person, oriented to place and oriented to time HENMT: Face/Nose/Sinus: Normal external nose present Eyes: General: appearance normal, both eyes and all related structures Resp: Effort & Inspection: normal respiratory effort GI: Inspection: normal to inspection Skin: General skin exam: normal color Neuro: General: oriented to person, oriented to place and oriented to time Extrem: General: normal to inspection and no calf tenderness Psych: Appearance: grossly normal Mental Status: mental status grossly normal DS: Data Data Completed and Pending Labs on day of discharge: Labs from last 24 hours 06/26/25 03:54 WBC 10.1 H RBC 3.02 L Hgb 9.9 L Hct 29.4 L MCV 97.4 MCH 32.8 MCHC 33.7 RDW 12.9 Plt Count 193 MPV 10.7 H Immature Gran % (Auto) 0.4 Neut % (Auto) 77.4 H Lymph % (Auto) 14.1 L [place] % (Auto) 7.5 Eos % (Auto) 0.3 Baso % (Auto) 0.3 Lymph # (Auto) 1.42 [place] # (Auto) 0.8 H Eos # (Auto) 0.0 Baso # (Auto) 0.0 Abs Immat Gran (auto) 0.04 H Absolute Neuts (auto) 7.8 H Absolute Nucleated RBC 0.000 Nucleated RBC % 0.0 Discharge Plan Discharge Attending physician on discharge: Arsalan Strong Consulting providers: Victor Manuel Dunn; Glenn Krueger Jr. Discharging Clinician: Aman Juan Patient Disposition: Home Activity: may shower, may drive after 2 weeks and pelvic rest Diet: diabetic Wound Care Instructions: incision open to air Discharge Instructions: Call or return if temperature above 100.4? F, increased abdominal pain, increased vaginal bleeding or any new problems. Education: Mom and Baby Guide Given to: Mother Follow-Up: Call your delivering provider's office for an appointment to be seen in: 2 Weeks Mom and baby should come to the [facility] for the follow-up appointment. Appointment Date/Time: June 28, 2025 at 9:00 am What to expect at your follow-up visit: Blood Pressure Check Physical Assessment Call [phone] if you are unable to keep your appointment time. BREAST CARE: * Wear a snug supportive bra. * For engorgement discomfort: Breast Feeding: * Apply warm moist washcloths * Express milk as needed to relieve engorgement * Wear loose clothing Bottle Feeding: * May apply ice packs * For sore nipples: * Identify correct latch-on * Apply warm moist washcloths before and after nursing * Air dry nipples after nursing * May apply Lansinoh cream to nipples ABDOMINAL INCISION: (if applicable) * Allow incision to air dry * Do NOT use lotions for powders on your incision * When showering, allow soap and water to run over the incision, but do not wash incision EPISIOTOMY/PERINEAL CARE: * Until bleeding stops, use your shelly bottle after urinating * Change your pad frequently throughout the day * You may take sitz baths several times a day (fill your bathtub with warm water and soak for 20 minutes.) Do NOT bathe in the water * No tub baths until seen by your physician - You may shower ACTIVITY: * Rest as much as possible. * Do not exercise or lift anything heavier than your baby (such as laundry or other children.) * Avoid stairs or driving as much as possible. * Do not put anything into the vagina. No douching, tampons, or sexual activity until seen by physician. NOTIFY PHYSICIAN IF YOU HAVE ANY QUESTIONS OR IF ANY OF THE FOLLOWING SYMPTOMS OCCUR: * If your incision becomes red, swollen, or more painful than what you have experienced in the hospital. * If your vaginal bleeding becomes foul smelling. * If your vaginal bleeding becomes more heavy than a period or if your bleeding changes from pink to bright red. However, you may pass an occasional walnut- sized clot once or twice for the first week . * If you experience a sharp, shooting pain in you calves. * If you discover a hard, reddened area on your breast or if you experience flu- like symptoms. DIET: * Eat regular, well-balanced meals. * Drink plenty of fluids daily. If , drink to thirst. Patient Language: [place] Citizen Stand Alone Forms: General Discharge Information Follow-up/Referrals: Arsalan Strong MD [Physician, [employer]] - Call for Appointment Referral Note: Follow up in 1-2 weeks Discharge Medications: Continued insulin lispro 100 unit/mL cartridge 1 sliding scale dose subcut USEASDIRECTD DHA 200 mg capsule PO Discontinued aspirin [Adult Low Dose Aspirin] 81 mg tablet,delayed release (DR/EC) 81 mg PO DAILY RSVPreF3 antigen-AS01E (PF) 120 mcg/0.5 mL suspension for reconstitution 0.5 ml IM ONCE Qty: 1 0RF Rx Instructions: as directed Date of admission: 06/25/25 07:02 Primary Care Provider: PHYSICIAN,BUFFET ATTENDANT Admitting Provider: Arsalan Strong Attending physician on admission: Aman Juan Condition: Stable
--- NOTE | 2025-06-26 16:25 | PC.NURSE ---
Princess retuned to the unit after a day pass spent visiting at [facility]
[2025-06-26] MEDS: LIDOCAINE 5% PATCH 1 PATCH TRANSDERM (16:48)
[2025-06-26 18:55] VITALS: BP 130/72; PULSE 92; RESP 20; TEMP 36.5; O2SAT 99
[2025-06-27] MEDS: ACETAMINOPHEN 500 MG TABLET 1000 MG PO (04:45)
[2025-06-27] MEDS: IBUPROFEN 600 MG TABLET PO ×2 (04:45→11:03)
[2025-06-27 07:45] VITALS: BP 128/82; PULSE 93; RESP 16; TEMP 36.7; O2SAT 99
--- NOTE | 2025-06-27 08:07 | PC.NURSE ---
Consulted with mother concerning any needs and she shared that she is still using her breast pump on a consistent schedule and that she is also working with [facility] RN while infant is in the NICU there. Reinforced understanding of milk production, transition of milk, signs of adequate intake, transition of stool, prevention/relief of engorgement, plugged ducts, mastitis, responsive watching for feeding cues, community resources, and when to call a provider using the resource of the feeding sheet along with the mom and baby guide. Mother voiced understanding of the information shared and denies any additional assistance or education at this time. Reported to the Primary RN.
[2025-06-27] MEDS: MULTIVIT/MIN/PREN/FOL AC/IRON TABLET 1 TAB PO (09:37)
[2025-06-27] MEDS: SIMETHICONE 80 MG TAB.CHEW PO (09:37)
[2025-06-27] MEDS: DOCUSATE SODIUM 100 MG CAPSULE PO (09:37)
[2025-06-27] MEDS: oxyCODONE HCL (*CRX) 5 MG TAB IR PO (09:41)
--- NOTE | 2025-06-27 10:22 | P.DS_ITS ---
DS: Admitting Diagnosis Discharge Date 06/27/25 Admitting Diagnosis IUP at 39 weeks Breech presentation Diabetes DS: Discharge Diagnosis Discharge Diagnosis (1) delivery delivered: Code(s): O82 - Encounter for delivery without indication Status: Acute (2) Diabetes in : Code(s): O24.919 - Unspecified diabetes mellitus in , unspecified trimester Status: Acute OB - DS: Summary OB Procedures : NST OB Procedures Intrapartum: OB Procedures: : None Peripartum Data Procedures: Procedures Operation Date: 06/25/25 09:00 Actual Procedure Side Surgeon p Section Not Applicable Arsalan Strong MD Time Spent with Patient Time attestation: Total time spent providing and/or coordinating discharge services: Discharge Plan Discharge Attending physician on discharge: Arsalan Strong Consulting providers: Victor Manuel Dunn Discharging Clinician: Aman Juan Patient Disposition: Home Activity: may shower, may drive after 2 weeks and pelvic rest Diet: diabetic Wound Care Instructions: incision open to air Discharge Instructions: Call or return if temperature above 100.4? F, increased abdominal pain, increased vaginal bleeding or any new problems. Education: Mom and Baby Guide Given to: Mother Follow-Up: Call your delivering provider's office for an appointment to be seen in: 2 Weeks Mom and baby should come to the [facility] for the follow-up appointment. Appointment Date/Time: June 28, 2025 at 9:00 am What to expect at your follow-up visit: Blood Pressure Check Physical Assessment Call [phone] if you are unable to keep your appointment time. BREAST CARE: * Wear a snug supportive bra. * For engorgement discomfort: Breast Feeding: * Apply warm moist washcloths * Express milk as needed to relieve engorgement * Wear loose clothing Bottle Feeding: * May apply ice packs * For sore nipples: * Identify correct latch-on * Apply warm moist washcloths before and after nursing * Air dry nipples after nursing * May apply Lansinoh cream to nipples ABDOMINAL INCISION: (if applicable) * Allow incision to air dry * Do NOT use lotions for powders on your incision * When showering, allow soap and water to run over the incision, but do not wash incision EPISIOTOMY/PERINEAL CARE: * Until bleeding stops, use your shelly bottle after urinating * Change your pad frequently throughout the day * You may take sitz baths several times a day (fill your bathtub with warm water and soak for 20 minutes.) Do NOT bathe in the water * No tub baths until seen by your physician - You may shower ACTIVITY: * Rest as much as possible. * Do not exercise or lift anything heavier than your baby (such as laundry or other children.) * Avoid stairs or driving as much as possible. * Do not put anything into the vagina. No douching, tampons, or sexual activity until seen by physician. NOTIFY PHYSICIAN IF YOU HAVE ANY QUESTIONS OR IF ANY OF THE FOLLOWING SYMPTOMS OCCUR: * If your incision becomes red, swollen, or more painful than what you have experienced in the hospital. * If your vaginal bleeding becomes foul smelling. * If your vaginal bleeding becomes more heavy than a period or if your bleeding changes from pink to bright red. However, you may pass an occasional walnut- sized clot once or twice for the first week . * If you experience a sharp, shooting pain in you calves. * If you discover a hard, reddened area on your breast or if you experience flu-like symptoms. DIET: * Eat regular, well-balanced meals. * Drink plenty of fluids daily. If , drink to thirst. Patient Language: Azeri Stand Alone Forms: General Discharge Information Follow-up/Referrals: Arsalan Strong MD [Physician, SET UP [employer]ACH[employer]] - Call for Appointment Referral Note: Follow up in 1-2 weeks Discharge Medications: New hydrocodone-acetaminophen 5-325 mg Tablet 1 tablet PO Q4H PRN (Reason: Pain Rated 4-6) Qty: 20 0RF Continued insulin lispro 100 unit/mL cartridge 1 sliding scale dose subcut USEASDIRECTD DHA 200 mg capsule PO Discontinued aspirin [Adult Low Dose Aspirin] 81 mg tablet,delayed release (DR/EC) 81 mg PO DAILY RSVPreF3 antigen-AS01E (PF) 120 mcg/0.5 mL suspension for reconstitution 0.5 ml IM ONCE Qty: 1 0RF Rx Instructions: as directed Date of admission: 06/25/25 07:02 Primary Care Provider: PHYSICIAN,EMPLOYEE RELATION MANAGER Admitting Provider: Arsalan Strong Attending physician on admission: Arsalan Strong Condition: Stable
[2025-06-27] MEDS: MEASLES,MUMPS,RUBELLA VACCINE 0.5 ML VIAL SUB-Q (11:00)
[2025-06-27] MEDS: HYDROcodone/acetaminophen (*CRX) 5-325 MG TABLET 1 TAB PO (11:03)
== END 2025-06-27 11:10 | disposition home or self-care (01) | DRG 786 ==
LOC: ANHOB2 06-27 10:24 → ANHLDR 06-28 09:22
PROVIDERS: Admitting Provider Obstetrics & Gynecology; Visit Provider Obstetrics & Gynecology
PROC: 10D00Z1 Extraction of Products of Conception, Low, Open Approach (ICD-10-PCS; CPT 59514; principal; 2025-06-25 09:00)
DX: O32.1XX0 Maternal care for breech presentation, not applicable or unspecified (principal); O24.02 Pre-existing type 1 diabetes mellitus, in childbirth; Z3A.39 39 weeks gestation of pregnancy; Z37.0 Single live birth; O36.63X0 Maternal care for excessive fetal growth, third trimester, not applicable or unspecified; Z96.41 Presence of insulin pump (external) (internal); O77.0 Labor and delivery complicated by meconium in amniotic fluid; Z79.4 Long term (current) use of insulin
CPT/HCPCS: 36415; 85025; 90710; J0690; A9270; J1885; J2003; J2274; J2405; J2590; J7120